=== PATIENT | female | born 1965 | race Two or more races ===

== ENCOUNTER 2022-07-22 01:06 | Emergency (ER) | payer MEDICARE, MEDICAID, SELFPAY ==
[2022-07-22 01:33] VITALS: BP 134/88; PULSE 110; O2SAT 98
[2022-07-22 02:04] VITALS: BP 124/88; PULSE 106; RESP 20; TEMP 36.7; O2SAT 98; BMI 28.3
--- NOTE | 2022-07-22 07:08 | ED_ITS ---
HPI - Back Pain/Injury General Chief Complaint: Back Pain/Injury Stated Complaint: BACK PAIN [id number] Time Seen by Provider: 07/22/22 06:29 Source: patient Mode of arrival: EMS History of Present Illness HPI Narrative: 56-year-old female with atraumatic presentation via EMS of back pain that does not radiate into either lower extremity, she denies any groin numbness and denies any bowel or bladder issues. Patient also denies any fever, chills but states that she is having difficulty bending over to plug in her electronics. Patient denies any urinary symptoms such as pains, burning, frequency. Related Data Allergies Allergy/AdvReac Type Severity Reaction Status Date / Time No Known Allergies Allergy Verified 07/22/22 02:06 Review of Systems Review of Systems: Pertinent positives and negatives as stated in HPI. [facility]LY [facility] Past Medical History Source: nursing notes reviewed Social History Social History Advance Directives: No Advance Directives Information Provided: No Physical Exam Vital Signs: Vital Signs: Last Vital Signs Temp 98.1 F 07/22/22 02:04 Pulse 68 07/22/22 07:21 Resp 16 07/22/22 07:21 BP 139/87 07/22/22 07:21 Pulse Ox 94 07/22/22 07:21 O2 Del Method 07/22/22 07:21 BMI result Body Mass Index 28.3 VITAL SIGNS: Reviewed. GENERAL: Chronically ill, well-nourished, in no acute distress. HEAD: Normocephalic/atraumatic EYES: PERRLA, EOMI EARS: Ext canals without abnormality OROPHARYNX: no oral lesions noted, posterior pharynx clear LUNGS: Normal breath sounds. No adventitious sounds or accessory muscle use. SpO2<94> CARDIOVASCULAR: Regular rate and rhythm without noted murmurs ABDOMEN: Soft, non-tender, non-distended with bowel sounds. BACK: No midline vertebral tenderness or step-offs noted, no erythema or induration and no paraspinal pain on palpation. MUSCULOSKELETAL: No tenderness, deformities, or effusions noted on gross inspection. EXTREMITIES: No cyanosis, clubbing or edema. SKIN: Inspection of the skin reveals no rashes NEUROLOGIC: Alert and oriented x 4. Strength and sensation to light touch were grossly intact x 4. Medications Administered Discontinued Medications Generic Name Dose Route Start Last Admin Trade Name Elizabeth PRN Reason Stop Dose Admin Acetaminophen 975 mg 07/22/22 07:07 07/22/22 07:19 Acetaminophen 325 Mg Tablet PO 07/22/22 07:08 975 mg ONCE ONE Administration Ibuprofen 400 mg 07/22/22 07:07 07/22/22 07:19 Ibuprofen 400 Mg Tablet PO 07/22/22 07:08 400 mg ONCE ONE Administration Lidocaine 1 patch 07/22/22 07:07 07/22/22 07:19 Lidocaine 4 % Patch Adh..Patch TRANSDERMA 07/22/22 07:08 1 patch ONCE ONE Administration Protocol Medical Decision Making Medical Decision Making MDM Narrative: 56-year-old female with history and clinical presentation most consistent with acute on chronic back pain likely secondary to osteoarthritis, patient provided with combination analgesics as well as a lidocaine patch. On re-evaluation patient is noted feel a little bit better and is walking well without difficulty. Differential Diagnosis Differential Diagnoses: The differential diagnosis associated with the presentation includes Acute on chronic back pain likely osteoarthritis, there are no symptoms to suggest cauda equina, spinal abscess or fracture. Discharge Plan Discharge Clinical Impression: Acute exacerbation of chronic low back pain Patient Disposition: Home, Self-Care Instructions: Back Pain (ED) Additional Instructions: 1. Tylenol 1000 mg, orally, every 6 hours as needed for pain control. Do not exceed 4000 mg within 24 hours. 2. Lidocaine patch, this is available [id number] and should be apply to the area of maximal pain on your back as directed on the outside packaging. 3. Ibuprofen 400 mg, orally with milk or food, every 6 hours as needed for pain control. You may take this medication with Tylenol for improved symptom relief. 4. Please follow-up with your primary care provider in the next 1-2 days for re- evaluation further management. Return to the ER for any worsening symptoms.
[2022-07-22] MEDS: Ibuprofen 400 MG TABLET PO (07:19)
[2022-07-22] MEDS: Lidocaine 4 % Patch ADH..PATCH 1 PATCH TRANSDERMA (07:19)
[2022-07-22] MEDS: Acetaminophen 325 MG TABLET 975 MG PO (07:19)
[2022-07-22 07:21] VITALS: BP 139/87; PULSE 68; RESP 16; O2SAT 94
== END 2022-07-22 08:06 | disposition home or self-care (01) ==
PROVIDERS: Emergency Provider Student in an Organized Health Care Education/Training Program
DX: M54.50 Low back pain, unspecified (principal); Z79.899 Other long term (current) drug therapy
CPT/HCPCS: 99283; 99284

== ENCOUNTER 2022-07-30 20:50 | Emergency (ER) | payer MEDICARE, MEDICAID, SELFPAY ==
--- NOTE | 2022-07-30 | ECG_ITS ---
Test Reason : left side chest pressure Blood Pressure : / mmHG Vent. Rate : 097 BPM Atrial Rate : 097 BPM P-R Int : 180 ms QRS Dur : 080 ms QT Int : 346 ms P-R-T Axes : 063 026 031 degrees QTc Int : 439 ms Normal sinus rhythm Nonspecific T wave abnormality Borderline ECG No previous ECGs available Referred By: Generic ED Physician Electronically Signed By:MIK MANTILLA
--- NOTE | ~2022-07-30 | XR_ITS ---
EXAMINATION: XR CHEST CLINICAL INFORMATION: Cough. COMPARISON: None TECHNIQUE: 2 views of the chest were obtained. FINDINGS: No significant abnormality is noted involving the heart, lungs, mediastinum, bony thorax or soft tissues. XR/XR chest 2V IMPRESSION: Unremarkable examination.
[2022-07-30 20:54] VITALS: BP 130/80; PULSE 110; O2SAT 100
[2022-07-30 21:03] VITALS: BP 164/97; PULSE 103; RESP 18; TEMP 36.3; O2SAT 100; BMI 25.4
[2022-07-30 21:42] LABS: MANUAL DIFF FLAG NO
[2022-07-30 21:43] LABS: Basophils Percent Auto 0.6 % (0-2); Eosinophils Percent Auto 0.3 % (0-4); Hematocrit 37.9 % (37.0-47.0); Hemoglobin 12.7 g/dl (12.0-16.0); Imm Gran Abs Auto 0.07 X10*3/uL (0.00-0.03); Lymphocytes Absolute Auto 2.6 X10*3/uL (1.2-4.9); Lymphocytes Percent Auto 37.2 % (20-40); Mean Corpuscular HGB Conc 33.5 g/dl (31.0-35.0); Mean Corpuscular Volume 92.4 fL (80.0-98.0); Mean Platelet Volume 9.8 fL (9.4-12.3); Monocytes Absolute Auto 0.9 X10*3/uL (0.1-1.2); Monocytes Percent Auto 13.3 % (2-11); Neutrophils Absolute Auto 3.4 x10*3/uL (2.0-8.3); Neutrophils Percent Auto 47.6 % (45-73); Platelet Count 246 X10*3/uL (160-400); White Blood Count 7.1 X10*3/uL (4.8-10.8)
[2022-07-30 22:00] VITALS: BP 164/90; PULSE 94; RESP 16; TEMP 36.7; O2SAT 97
[2022-07-30 22:02] LABS: Anion Gap 15 (12-20); Blood Urea Nitrogen 19 mg/dL (9-16); Calcium 9.8 mg/dL (8.4-10.2); Carbon Dioxide 24 mmol/L (22-29); Chloride 105 mmol/L (96-108); Creatinine Clr Calc Pharmacy 78.1; Estimated Glomerular Filt Rate > 60; Glucose Random 113 mg/dL (60-115); Potassium 4.7 mmol/L (3.3-5.1); Sodium 139 mmol/L (135-145); Troponin-I High Sensitivity < 3.5 ng/L (<3.5-17.0)
[2022-07-30 22:03] LABS: IDNOW Serial# BCCEAD1C; Influenza A Negative (Negative); Influenza B2 Negative (Negative)
[2022-07-30 22:04] LABS: COVID-19 Test Negative (Negative); IDNOW Serial# 16C4AD1C
[2022-07-30 22:06] LABS: D Dimer High Sensitivity < 150 NG/ML
[2022-07-30] MEDS: Acetaminophen 325 MG TABLET 975 MG PO (23:00)
[2022-07-30] MEDS: Ibuprofen 400 MG TABLET PO (23:01)
--- NOTE | 2022-07-30 23:38 | ED.GENADULT ---
HPI - General Adult General Chief complaint: General Medical Stated complaint: Sinus Pain/Hip Pain Time Seen by Provider: 07/30/22 22:10 Source: patient Mode of arrival: EMS History of Present Illness HPI narrative: 56-year-old female who presents via EMS with complaints of ?sinus infection for 7 days but denies any associated fever, chills and denies any visual disturbances. In addition, patient reports open quotes left-sided facial heaviness as well as ?breast pain? as per the triage note but patient made no mention of any breast discomfort. Related Data Allergies Allergy/AdvReac Type Severity Reaction Status Date / Time No Known Allergies Allergy Verified 07/30/22 21:07 Review of Systems Review of Systems: Pertinent positives and negatives as stated in HPI [facility] Past Medical History Source: nursing notes reviewed Social History Social History Alcohol intake: never Smoked in Last 30 Days: Yes Use of substances other than those prescribed or required for medical reasons: Yes Substance Use Type: Crack/Cocaine Last Used Substance: Weeks (ago) Advance Directives: No Physical Exam ED Vital Signs: Vital Signs - 24 hr 07/30/22 21:03 07/30/22 22:00 Temperature 97.4 F 98.0 F Pulse Rate 103 H 94 Respiratory Rate 18 16 Blood Pressure 164/97 H 164/90 H Pulse Oximetry 100 97 Oxygen Delivery Method Room Air Room Air BMI result Body Mass Index 25.4 VITAL SIGNS: Reviewed. GENERAL: Well developed, well nourished, in no acute distress. HEAD: Normocephalic/atraumatic, patient does describes some mild tenderness on palpation on tapping over the left maxilla EYES: PERRLA, EOMI EARS: Ext canals without abnormality, TMs non-bulging and non-erythematous NOSE: Nares patent bilateral, boggy turbinates bilaterally but no noted purulence drainage OROPHARYNX: no oral lesions noted, posterior pharynx clear, patient has no teeth NECK: Supple, no adenopathy LUNGS: Normal breath sounds. No adventitious sounds or accessory muscle use. SpO2<100> CARDIOVASCULAR: Regular rate and rhythm without noted murmurs, no JVD or lower extremity edema. ABDOMEN: Soft, non-tender, non-distended with bowel sounds. MUSCULOSKELETAL: No tenderness, deformities, or effusions noted on gross inspection. EXTREMITIES: No cyanosis, clubbing or edema. SKIN: Inspection of the skin reveals no rashes NEUROLOGIC: Alert and oriented x 4. Strength and sensation to light touch were grossly intact x 4, no facial asymmetry. Medications Administered Discontinued Medications Generic Name Dose Route Start Last Admin Trade Name Elizabeth PRN Reason Stop Dose Admin Acetaminophen 975 mg 07/30/22 22:37 07/30/22 23:00 Acetaminophen 325 Mg Tablet PO 07/30/22 22:38 975 mg ONCE ONE Administration Ibuprofen 400 mg 07/30/22 22:37 07/30/22 23:01 Ibuprofen 400 Mg Tablet PO 07/30/22 22:38 400 mg ONCE ONE Administration Medical Decision Making Medical Decision Making [facility] Narrative: This is a 56-year-old female who presents with multiple complaints of sinus pain, on my examination denies any chest wall discomfort and patient denies any recent falls. I have reviewed and interpreted her workup as absence of acute systemic infection, no evidence of anemia or acute electrolyte/renal dysfunction, troponin and EKG do not appear consistent with underlying cardiac etiology with respect to her reported left breast pain as documented from the triage note. Unable to PERC patient out, however D-dimer is undetectable. Viral testing is negative and patient was provided with combination analgesics for sinus discomfort. At this time I do not feel that she has an active bacterial sinus infection and I will not be prescribing antibiotics for this patient at this time. Instead I am asking that the patient follow-up with her primary care provider. Differential Diagnosis Please see discussion above Lab Data [facility] Lab Attestation statement: I reviewed the patient's lab results. Please see discussion above 07/30/22 21:35 07/30/22 21:35 Labs: Lab Results 07/30/22 07/30/22 07/30/22 Range/Units 21:31 21:31 21:35 WBC 7.1 (4.8-10.8) X10*3/uL RBC 4.10 L (4.20-5.50) X10*6/uL Hgb 12.7 (12.0-16.0) g/dl Hct 37.9 (37.0-47.0) % MCV 92.4 (80.0-98.0) fL MCH 31.0 (27.0-33.0) pg MCHC 33.5 (31.0-35.0) g/dl RDW 17.0 H (11.0-16.0) % Plt Count 246 (160-400) X10*3/uL MPV 9.8 (9.4-12.3) fL Immature Gran % (Auto) 1.0 H (0.0-0.4) % Neut % (Auto) 47.6 (45-73) % Lymph % (Auto) 37.2 (20-40) % [place] % (Auto) 13.3 H (2-11) % Eos % (Auto) 0.3 (0-4) % Baso % (Auto) 0.6 (0-2) % Lymph # (Auto) 2.6 (1.2-4.9) X10*3/uL [place] # (Auto) 0.9 (0.1-1.2) X10*3/uL Eos # (Auto) 0.0 (0.0-0.4) X10*3/uL Baso # (Auto) 0.0 (0.0-0.2) X10*3/uL Abs Immat Gran (auto) 0.07 H (0.00-0.03) X10*3/uL Absolute Neuts (auto) 3.4 (2.0-8.3) x10*3/uL Absolute Nucleated RBC 0.000 (0.0-0.012) X10*3/uL Nucleated RBC % (auto) 0.0 (0.0-0.2) /100WBC D-Dimer High Sensitivty NG/ML Sodium (135-145) mmol/L Potassium (3.3-5.1) mmol/L Chloride (96-108) mmol/L Carbon Dioxide (22-29) mmol/L Anion Gap (12-20) BUN (9-16) mg/dL Creatinine (0.5-1.4) mg/dL Estim Creat Clear Calc Estimated GFR Random Glucose (60-115) mg/dL Calcium (8.4-10.2) mg/dL Troponin I High Sens (<3.5-17.0) ng/L COVID-19 (EH) Negative (Negative) COVID-19 Clin Com See Note Influenza Type A (GUILHERME) Negative (Negative) Influenza Type B (GUILHERME) Negative (Negative) Influenza A & B Note See Note 07/30/22 07/30/2207/30/23 Range/Units 21:35 21:35 21:35 WBC (4.8-10.8) X10*3/uL RBC (4.20-5.50) X10*6/uL Hgb (12.0-16.0) g/dl Hct (37.0-47.0) % MCV (80.0-98.0) fL MCH (27.0-33.0) pg MCHC (31.0-35.0) g/dl RDW (11.0-16.0) % Plt Count (160-400) X10*3/uL MPV (9.4-12.3) fL Immature Gran % (Auto) (0.0-0.4) % Neut % (Auto) (45-73) % Lymph % (Auto) (20-40) % Bosque % (Auto) (2-11) % Eos % (Auto) (0-4) % Baso % (Auto) (0-2) % Lymph # (Auto) (1.2-4.9) X10*3/uL [place] # (Auto) (0.1-1.2) X10*3/uL Eos # (Auto) (0.0-0.4) X10*3/uL Baso # (Auto) (0.0-0.2) X10*3/uL Abs Immat Gran (auto) (0.00-0.03) X10*3/uL Absolute Neuts (auto) (2.0-8.3) x10*3/uL Absolute Nucleated RBC (0.0-0.012) X10*3/uL Nucleated RBC % (auto) (0.0-0.2) /100WBC D-Dimer High Sensitivty < 150 NG/ML Sodium 139 (135-145) mmol/L Potassium 4.7 (3.3-5.1) mmol/L Chloride 105 (96-108) mmol/L Carbon Dioxide 24 (22-29) mmol/L Anion Gap 15 (12-20) BUN 19 H (9-16) mg/dL Creatinine 0.71 (0.5-1.4) mg/dL Estim Creat Clear Calc 78.1 Estimated GFR > 60 Random Glucose 113 (60-115) mg/dL Calcium 9.8 (8.4-10.2) mg/dL Troponin I High Sens < 3.5 (<3.5-17.0) ng/L COVID-19 (EH) (Negative) COVID-19 Clin Com Influenza Type A (GUILHERME) (Negative) Influenza Type B (GUILHERME) (Negative) Influenza A & B Note Independent Interpretation I performed an independent interpretation of an: EKG Interpretation: Normal sinus rhythm, HR-97, nonspecific T-wave abnormality, no STEMI, WI/QRS/QTC is within normal limits, this is an abnormal EKG. There is no EKG for comparison Radiology Impression Radiologist Impression: My interpretation is in agreement with radiologist's impression of the imaging study. External Record Review External record reviewed: Outside ED record Discharge Plan Discharge Clinical Impression: Sinusitis Patient Disposition: Home, Self-Care Instructions: Sinusitis (ED) Additional Instructions: 1. I recommend starting [id number] saline spray for for improvement of symptoms as well as using a cool mist humidifier at the bedside. 2. Follow-up with your primary care provider by calling the office on Monday. 3. I also recommend [id number] Tylenol/ibuprofen for any sinus pain that you experience. Return to the ER for any worsening symptoms.
--- NOTE | 2022-07-31 00:05 | PC.NURSE ---
Discharge instructions given and explained, ambulates safely/independently, no apparent distress, IV cath tip intact upon removal
== END 2022-07-31 00:04 | disposition home or self-care (01) ==
PROVIDERS: Emergency Provider Student in an Organized Health Care Education/Training Program
DX: J32.0 Chronic maxillary sinusitis (principal); Z20.822 Contact with and (suspected) exposure to COVID-19
CPT/HCPCS: 36415; 71046; 80048; 84484; 85025; 85379; 87502; 87635; 93005; 99283; 99285

== ENCOUNTER 2022-10-28 09:30 | Emergency (ER) | payer OTHER, MEDICARE, MEDICAID, SELFPAY ==
--- NOTE | ~2022-10-28 | XR_ITS ---
EXAMINATION: XR KNEE, RIGHT CLINICAL INFORMATION: Pain. Injury. COMPARISON: None available. TECHNIQUE: Four views of the right knee. FINDINGS: There is a plate and multiple screws seen in the distal femoral shaft and supracondylar region. Hardware is intact. Old healed fracture of the distal femur. No acute fracture or dislocation. Mild tricompartment arthritis with joint space narrowing and osteophyte formation at the knee joint. Small joint effusion. Small patellar osteophytes at the quadriceps tendon insertion and patellar tendon origins. XR/XR knee RT 4V IMPRESSION: ORIF of old healed distal femoral shaft fracture. Mild arthritis. No acute fracture or dislocation.
[2022-10-28 09:36] VITALS: BP 130/100; BP 175/102; PULSE 86; PULSE 92; RESP 20; TEMP 36.7; O2SAT 94; O2SAT 97; BMI 24.0
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
[2022-10-28 10:43] VITALS: BP 156/84; PULSE 82; RESP 12; O2SAT 100
== END 2022-10-28 12:30 | disposition home or self-care (01) ==
PROVIDERS: Emergency Provider Internal Medicine
DX: S80.01XA Contusion of right knee, initial encounter (principal); M25.561 Pain in right knee; V03.99XA Pedestrian with other conveyance injured in collision with car, pick-up truck or van, unspecified whether traffic or nontraffic accident, initial encounter; Y93.9 Activity, unspecified; Y92.481 Parking lot as the place of occurrence of the external cause; Y99.9 Unspecified external cause status
CPT/HCPCS: 73564; 99283

== ENCOUNTER → 2023-05-17 07:53 | Outpatient (REF) | payer MEDICARE, MEDICAID, SELFPAY ==
--- NOTE | 2023-05-17 08:29 | ECG_ITS ---
Test Reason : F31.31, F43.10 Blood Pressure : / mmHG Vent. Rate : 092 BPM Atrial Rate : 092 BPM P-R Int : 152 ms QRS Dur : 088 ms QT Int : 368 ms P-R-T Axes : 073 041 048 degrees QTc Int : 455 ms Normal sinus rhythm Nonspecific T wave abnormality Abnormal ECG When compared with ECG of 30-JUL-2022 21:24, T wave inversion less evident in Anterior leads Referred By: Annette Gomez Electronically Signed By:ROLA NUNEZ MD
== END ==
LOC: HO.CARD 07:53
PROVIDERS: PCP Family Medicine; Visit Provider Nurse Practitioner Psychiatric/Mental Health
DX: F31.31 Bipolar disorder, current episode depressed, mild (principal); F43.10 Post-traumatic stress disorder, unspecified; Z79.899 Other long term (current) drug therapy
CPT/HCPCS: 93005

== ENCOUNTER → 2024-03-15 15:00 | Outpatient (REF) | payer MEDICARE, MEDICAID, SELFPAY ==
--- NOTE | 2024-03-15 | ECG_ITS ---
Test Reason : F31.81 Blood Pressure : / mmHG Vent. Rate : 093 BPM Atrial Rate : 093 BPM P-R Int : 154 ms QRS Dur : 086 ms QT Int : 352 ms P-R-T Axes : 076 050 061 degrees QTc Int : 437 ms Sinus rhythm with occasional Premature ventricular complexes Nonspecific T wave abnormality Abnormal ECG When compared with ECG of 17-MAY-2023 08:28, Premature ventricular complexes are now Present Nonspecific T wave abnormality now evident in Lateral leads Referred By: Annette Gomez Electronically Signed By:JENNIFER MCCRACKEN
== END ==
LOC: HO.CARD 15:00
PROVIDERS: PCP Family Medicine; Visit Provider Nurse Practitioner Psychiatric/Mental Health
DX: F31.81 Bipolar II disorder (principal); F43.10 Post-traumatic stress disorder, unspecified
CPT/HCPCS: 93005

== ENCOUNTER 2024-06-19 09:47 | Emergency (ER) | payer MEDICARE, MEDICAID, SELFPAY ==
[2024-06-19 10:15] VITALS: BP 160/106; BP 173/110; PULSE 87; PULSE 92; RESP 16; TEMP 36.6; O2SAT 98; BMI 23.8
[2024-06-19 10:22] VITALS: BP 173/110; PULSE 87; RESP 16; TEMP 36.6; O2SAT 98
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
[2024-06-19 12:43] VITALS: BP 141/100; PULSE 93; RESP 16; O2SAT 99
[2024-06-19] MEDS: Cyclobenzaprine HCl 10 MG TABLET PO (12:49)
[2024-06-19] MEDS: Lidocaine 4 % Patch ADH..PATCH 1 PATCH TRANSDERMA (12:49)
[2024-06-19 13:03] VITALS: BP 141/100; PULSE 93; RESP 16; TEMP 36.6; O2SAT 99
== END 2024-06-19 13:04 | disposition home or self-care (01) ==
PROVIDERS: Emergency Provider Emergency Medicine Emergency Medical Services; PCP Family Medicine
DX: S39.012A Strain of muscle, fascia and tendon of lower back, initial encounter (principal); V73.6XXA Passenger on bus injured in collision with car, pick-up truck or van in traffic accident, initial encounter; Y93.89 Activity, other specified; Y92.414 Local residential or business street as the place of occurrence of the external cause; Y99.9 Unspecified external cause status
CPT/HCPCS: 99284

== ENCOUNTER 2024-07-24 00:56 | Emergency (ER) | payer MEDICARE, MEDICAID, SELFPAY ==
--- NOTE | 2024-07-24 | ECG_ITS ---
Test Reason : SOB Blood Pressure : / mmHG Vent. Rate : 097 BPM Atrial Rate : 097 BPM P-R Int : 150 ms QRS Dur : 084 ms QT Int : 354 ms P-R-T Axes : 069 051 063 degrees QTc Int : 449 ms Normal sinus rhythm Nonspecific T wave abnormality Abnormal ECG When compared with ECG of 15-MAR-2024 15:08, Premature ventricular complexes are no longer Present Referred By: Generic ED Physician Electronically Signed By:KELLY MELGAR MD
--- NOTE | ~2024-07-24 | XR_ITS ---
CLINICAL HISTORY: Cough 1 view chest x-ray Comparison: CR/ND/SR - XR CHEST 2V - 07/31/22 00:02 EST Findings: Low lung volumes. No focal infiltrate. No effusion or pneumothorax. Heart size is normal. No acute fracture. IMPRESSION: 1. No acute findings. This document has been electronically signed by: Piero Garcia MD on 07/24/2024 02:03:54
[2024-07-24 01:02] VITALS: BP 126/82; BP 128/82; PULSE 105; PULSE 96; RESP 20; TEMP 36.4; O2SAT 96; O2SAT 99; BMI 30.7
[2024-07-24 01:18] LABS: Basophils Percent Auto 0.4 % (0-2); Eosinophils Absolute Auto 0.1 X10*3/uL (0.0-0.4); Eosinophils Percent Auto 1.2 % (0-4); Hemoglobin 11.8 g/dl (12.0-16.0); Imm Gran Abs Auto 0.45 X10*3/uL (0.00-0.03); Imm Gran Pct Auto 4.5 % (0.0-0.4); Lymphocytes Percent Auto 39.9 % (20-40); MANUAL DIFF FLAG NO; Mean Corpuscular HGB Conc 32.8 g/dl (31.0-35.0); Mean Corpuscular Hemoglobin 30.1 pg (27.0-33.0); Mean Corpuscular Volume 91.8 fL (80.0-98.0); Mean Platelet Volume 9.5 fL (9.4-12.3); Monocytes Absolute Auto 1.1 X10*3/uL (0.1-1.2); Monocytes Percent Auto 11.2 % (2-11); Neutrophils Absolute Auto 4.2 x10*3/uL (2.0-8.3); Neutrophils Percent Auto 42.8 % (45-73); Platelet Count 273 X10*3/uL (160-400); Red Blood Count 3.92 X10*6/uL (4.20-5.50); Red Cell Distribution Width 17.2 % (11.0-16.0); White Blood Count 9.9 X10*3/uL (4.8-10.8)
--- NOTE | 2024-07-24 01:28 | ED_ITS ---
HPI - SOB/Dyspnea General Chief Complaint: Dyspnea Stated Complaint: SOB x1 week, Hx of COPD, wheezing Time Seen by Provider: 07/24/24 01:28 Source: patient Mode of arrival: ambulatory Limitations: no limitations History of Present Illness ED Provider: HPI Narrative: Patient chronic smoker with history of COPD nebulizer is broken and using inhaler comes here for 1 week of cough and congestion saturating 94% at room received DuoNeb treatment by EMS prior to my evaluation patient took a course of prednisone and antibiotics about a week ago Related Data Previous Rx's ?Medication ?Instructions ?Recorded acetaminophen 500 mg tablet 500 mg PO Q6H PRN fever or pain 06/19/24 (Tylenol Extra Strength) #14 tabs cyclobenzaprine 5 mg tablet 5 mg PO Q8H PRN pain (scale score 06/19/24 7-10) 5 days #14 tabs lidocaine 5 % topical patch 1 patch topical DAILY PRN pain #30 06/19/24 (Lidoderm) ea naproxen 500 mg tablet 500 mg PO BID PRN pain 10 days #20 06/19/24 tabs albuterol sulfate 2.5 mg/3 mL 2.5 mg (3 mL) inhalation Q4-6H PRN 07/24/24 (0.083 %) solution for nebulization shortness of breath or wheezing #90 mL albuterol sulfate 90 mcg/actuation 2 puff inhalation Q6H PRN 07/24/24 aerosol inhaler shortness of breath or wheezing #8.5 grams nebulizer and compressor #1 ea 07/24/24 prednisone 20 mg tablet 40 mg (2 x 20 mg) PO DAILY #10 tabs 07/24/24 Allergies Allergy/AdvReac Type Severity Reaction Status Date / Time No Known Allergies Allergy Verified 07/24/24 01:03 Review of Systems 2 Review of Systems: Yes all other systems are reviewed and are negative [facility] Social History Social History Alcohol intake: never Substance Use Type: Crack/Cocaine Advance Directives: No Do you have a plan to hurt others: No Plan Physical Exam 2 Vital Signs: Vital Signs: Last Vital Signs Temp 97.5 F 07/24/24 01:02 Pulse 105 H 07/24/24 01:02 Resp 20 07/24/24 01:02 BP 128/82 07/24/24 01:02 Pulse Ox 96 07/24/24 01:02 O2 Del Method Room Air 07/24/24 01:02 BMI result Body Mass Index 30.7 Appearance: Alert. Oriented X3. No acute distress. Eyes: PERRLA, No Nystagmus ENT: Pharynx normal. Oral Mucosa moist Neck: Normal inspection. Neck supple. CVS: Normal heart rate and rhythm. Pulses normal. Respiratory: No respiratory distress. Equal air entry bilateral, prolonged expiration no rales Abdomen: Soft and nontender. Bowel sounds are present, no mass palpable, no CVA tenderness Skin: Skin warm and dry. Normal skin color. Normal skin turgor. Extremities: No lower extremity edema. No calf tenderness Neuro: Oriented X 3. No motor deficit. No sensory deficit.No cerebellar signs , cranial nerves II-XII intact Medical Decision Making Medical Decision Making [facility] Narrative: Patient with chronic bronchitis smoker comes with cough and shortness a breath but saturating 94% chest x-ray negative for infiltrate will prescribe prednisone labs were stable patient came positive for COVID no infiltrate in the chest x- ray Differential Diagnosis Differential Diagnoses: The differential diagnosis associated with the presentation includes Bronchitis/COPD/pneumonia Lab Data [facility] Lab Attestation statement: I reviewed the patient's lab results. 07/24/24 01:13 07/24/24 01:13 Labs: Lab Results 07/24/24 Range/Units 01:13 WBC 9.9 (4.8-10.8) X10*3/uL RBC 3.92 L (4.20-5.50) X10*6/uL Hgb 11.8 L (12.0-16.0) g/dl Hct 36.0 L (37.0-47.0) % MCV 91.8 (80.0-98.0) fL MCH 30.1 (27.0-33.0) pg MCHC 32.8 (31.0-35.0) g/dl RDW 17.2 H (11.0-16.0) % Plt Count 273 (160-400) X10*3/uL MPV 9.5 (9.4-12.3) fL Immature Gran % (Auto) 4.5 H (0.0-0.4) % Neut % (Auto) 42.8 L (45-73) % Lymph % (Auto) 39.9 (20-40) % [place] % (Auto) 11.2 H (2-11) % Eos % (Auto) 1.2 (0-4) % Baso % (Auto) 0.4 (0-2) % Lymph # (Auto) 4.0 (1.2-4.9) X10*3/uL [place] # (Auto) 1.1 (0.1-1.2) X10*3/uL Eos # (Auto) 0.1 (0.0-0.4) X10*3/uL Baso # (Auto) 0.0 (0.0-0.2) X10*3/uL Abs Immat Gran (auto) 0.45 H (0.00-0.03) X10*3/uL Absolute Neuts (auto) 4.2 (2.0-8.3) x10*3/uL Absolute Nucleated RBC 0.000 (0.0-0.012) X10*3/uL Nucleated RBC % (auto) 0.0 (0.0-0.2) /100WBC Sodium 137 (135-145) mmol/L Potassium 5.7 H (3.3-5.1) mmol/L Chloride 104 (96-108) mmol/L Carbon Dioxide 21 L (22-29) mmol/L Anion Gap 18 (12-20) BUN 15 (9-16) mg/dL Creatinine 0.72 (0.5-1.4) mg/dL Estim Creat Clear Calc 85.5 Estimated GFR > 60 Random Glucose 110 (60-115) mg/dL Calcium 9.5 (8.4-10.2) mg/dL Total Bilirubin 0.2 (0.0-1.0) mg/dL AST 41 H (5-31) U/L ALT 18 (0-31) U/L Alkaline Phosphatase 97 (39-117) U/L Troponin I High Sens < 2.7 (<3.5-17.0) ng/L B-Natriuretic Peptide 14 (<100) pg/mL Total Protein 7.4 (6.5-8.0) g/dL Albumin 3.5 (3.5-5.0) g/dL Influenza Type A (PCR) NEGATIVE (Negative) Influenza Type B (PCR) NEGATIVE (Negative) RSV RNA Qual (PCR) NEGATIVE (Negative) SARS-CoV-2 RNA (RT-PCR) POSITIVE A (Negative) Independent Interpretation I performed an independent interpretation of an: Plain X-Ray Interpretation: NAD Radiology Impression Discussion of test interpretation with radiology: I have reviewed the radiologist's reading. Discharge Plan Discharge Clinical Impression: Chronic bronchitis, COVID-19 Patient Disposition: Home, Self-Care Instructions: Chronic Bronchitis (ED), COVID-19 (Coronavirus Disease 2019) (ED) Additional Instructions: Stop smoking Continue to use your inhaler Prednisone as prescribed Follow with your PCP Social distancing as advised Prescriptions: New prednisone 20 mg tablet 40 mg PO DAILY Qty: 10 0RF albuterol sulfate 90 mcg/actuation HFA aerosol inhaler 2 puff inhalation Q6H PRN (Reason: shortness of breath or wheezing) Qty: 8.5 0RF (DME) nebulizer and compressor Device See Rx Instructions .Route Qty: 1 0RF Rx Instructions: As directed albuterol sulfate 2.5 mg /3 mL (0.083 %) solution for nebulization 2.5 mg inhalation Q4-6H PRN (Reason: shortness of breath or wheezing) Qty: 90 0RF No Action acetaminophen [Tylenol Extra Strength] 500 mg tablet 500 mg PO Q6H PRN (Reason: fever or pain) Qty: 14 0RF lidocaine [Lidoderm] 5 % adhesive patch,medicated 1 patch topical DAILY MDD remove after 12 hours PRN (Reason: pain) Qty: 30 0RF Rx Instructions: leave on most painful area for up to 12 hrs naproxen 500 mg tablet 500 mg PO BID PRN (Reason: pain) 10 Days Qty: 20 0RF cyclobenzaprine 5 mg tablet 5 mg PO Q8H PRN (Reason: pain (scale score 7-10)) 5 Days Qty: 14 0RF Print Language: Citizen [place]
[2024-07-24 01:34] LABS: Alanine Aminotransferase 18 U/L (0-31); Albumin Level 3.5 g/dL (3.5-5.0); Alkaline Phosphatase 97 U/L (39-117); Anion Gap 18 (12-20); Aspartate Amino Transferase 41 U/L (5-31); Bilirubin Total 0.2 mg/dL (0.0-1.0); Blood Urea Nitrogen 15 mg/dL (9-16); Calcium 9.5 mg/dL (8.4-10.2); Carbon Dioxide 21 mmol/L (22-29); Chloride 104 mmol/L (96-108); Creatinine Clr Calc Pharmacy 85.5; Estimated Glomerular Filt Rate > 60; Glucose Random 110 mg/dL (60-115); Potassium 5.7 mmol/L (3.3-5.1); Sodium 137 mmol/L (135-145); Total Protein 7.4 g/dL (6.5-8.0)
[2024-07-24 01:38] LABS: B Type Natriuretic Peptide 14 pg/mL (<100)
[2024-07-24 01:45] LABS: Troponin-I High Sensitivity < 2.7 ng/L (<3.5-17.0)
[2024-07-24 01:54] LABS: Influenza A PCR NEGATIVE (Negative); Influenza B PCR NEGATIVE (Negative); Resp Syncy Virus RNA Qual PCR NEGATIVE (Negative); SARS COV2 PCR INHOUSE POSITIVE (Negative)
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
--- OUTSIDE RECORDS SUMMARY | 2024-07-24 01:59 | XMS_ITS | Encounter Summary ---
Author Name [facility] [facility] [place] [address] [place] [address] Care Team Providers Care District Customs Director Name Role Phone NORMA GOMES Primary Care [...] AKIKO WOODWARD Jul 24, 2016 MEDICAI D [id number] SABINE WADE PATIENT MEDICARE (WNR) MEDICARE (M) PART B Jan 22, 1996 PART B [id number] SABINE WADE PATIENT MEDICARE (WNR) MEDICARE (M) PART B Jan 22, 1996 PART B [id number] SABINE WADE PATIENT MEDICARE (WNR) MEDICARE (M) PART A Mar 24, 1995 PART A [id number] SABINE WADE PATIENT Selected Encounter This section includes the information on record at [place] for the Encounter. Date/Time Encounter Type Encounter Description Reason Pro vider Source Dec 26, 2023 10:30 AM Outpatient Encounter OPTOMETRY IHE Encounter Template Text not used by CT Plan of Treatment: Future Appointments (+ 6 months) and Future Tests (+/- 45 days) The Plan of Treatment section includes future care activities for the [facility] [place] [facility] This section includes future appointments and future orders which are active, pending or scheduled. Future Appointments This section includes appointments that were scheduled to occur 6 months from the date of the Encounter, up to a maximum of 20 appointments. The data comes from all [place] treatment facilities. Appointment Date/Time Appointment Type Appointme nt Facility Name Jan 12, 2024 03:00 PM AMBULATORY - MEDICINE [facility] Jan 15, 2024 11:00 AM AMBULATORY - MEDICINE [facility] Jan 17, 2024 10:40 AM [facility] MEDICINE [facility] Apr 23, 2024 02:00 PM AMBULATORY - MEDICINE [facility] Lab Results: +/- 30 days of the encounter This section includes the Chemistry and Hematology Lab Results on record with CT for the patient. Radiology Reports and Pathology Reports are provided separately, in subsequent sections. Lab Results This section contains the Chemistry/Hematology Results that were resulted 30 days before or 30 daysafter the date of the Encounter. Date/Time Source Result Type Result - Unit Interpretation Reference Range Comment Jan 12, 2024 02:40 PM [facility] URINALYSIS Specimen Type: URINE Comment: If Glucose = >500 and Ketones are positive, please alert the Physician. Ordering Provider: MIKY ARITA Report Released Date/Time: Apr 27, 2023 03:37 PM Reporting Lab: [address] [address] Performing Lab: [address] [address] UA COLOR Yellow Yellow UA APPEARANCE Clear Clear UA GLUCOSE NEGATIVE mg/dL Negative UA KETONES TRACE mg/dL Negative UA BLOOD NEGATIVE mg/dL Negative UA PROTEIN 70 mg/dL Negative UA NITRITE NEGATIVE mg/dL Negative UA BILIRUBIN NEGATIVE mg/dL Negative UA SPECIFIC GRAVITY 1.036 H 1.016-1.022 UA pH 6.0 5.0-9.0 UA UROBILINOGEN 2.0 mg/dL <2.0 UA LEUKOCYTE TRACE Negative Jan 12, 2024 12:32 PM [facility] BASIC METABOLIC PANEL (fasting) Specime n Type: SERUM No comment entered. Ordering Provider: MIKY ARITA Report Released Date/Time: Apr 27, 2023 03:37 PM Reporting Lab: [address] [address] Performing Lab: [address] [address] UREA NITROGEN 14 mg/dL 7-25 GLUCOSE 92 mg/dL 65-100 SODIUM 140 mmol/L 135-145 POTASSIUM 4.7 mmol/L 3.5-5.0 CHLORIDE 105 mmol/L 100-110 CO2 23 meq/L 20-30 CREATININE, Serum 0.71 mg/dL 0.50-1.40 eGFR(CKD-EPI 2020) >90 mL/min >60 Jan 12, 2024 12:32 PM [facility] LIPID PANEL FASTING Specimen Type: SERUM No comment entered. Ordering Provider: MIKY ARITA Report Released Date/Time: Apr 27, 2023 03:37 PM Reporting Lab: [address] [address] Performing Lab: [address] [address] CHOLESTEROL 269 mg/dL H TRIGLYCERIDE 412 mg/dL H 0-150 LDL calculated Reflex to dLD L mg/dL 0-129 CHOL/HDL 5.2 HDL CHOLESTEROL 52 mg/dL 40-60 LDL DIRECT 167 mg/dL H Jan 12, 2024 12:32 PM [facility] LIVER FUNCTION Specimen Type: SERUM No comment entered. Ordering Provider: MIKY ARITA Report Released Date/Time: Apr 27, 2023 03:37 PM Reporting Lab: [address] [address] Performing Lab: [address] [address] PROTEIN,TOTAL 7.2 g/dL 6.0-8.3 ALBUMIN 3.8 g/dL 3.5-5.0 ALKALINE PHOSPHATASE 99 U/L 40-150 AST 17 U/L 5-34 ALT 15 U/L BILIRUBIN, TOTAL 0.2 mg/dL 0.2-1.2 Jan 12, 2024 12:32 PM [facility] HEMOGLOBIN A1C PANEL Specimen Type: BLOOD Comment: [...] Apr 27, 2023 03:37 PM Reporting Lab: [address] [address] Performing Lab: [address] [address] HEMOGLOBIN A1C 5.8 H 4.0-5.6 Jan 12, 2024 12:32 PM [facility] CBC AND DIFF (AUTO) Specimen Type: BLOOD No comment entered. Ordering Provider: MIKY ARITA Report Released Date/Time: Apr 27, 2023 03:37 PM Reporting Lab: [facility] [address] [address] Performing Lab: [address] [address] WBC 7.22 10*3/uL 4.50-11.00 RBC 4.24 10*6/uL [...] 10*3/uL 0.00-0.00 Jan 12, 2024 12:32 PM [facility] TSH Specimen Type: SERUM No comment entered. Ordering Provider: MIKY ARITA Report Released Date/Time: Apr 27, 2023 03:37 PM Reporting Lab: [facility] [address] [address] Performing Lab: [facility] [address] [address] TSH 1.46 u[IU]/mL 0.35-5.00 Social History: Smoking Status (Most current) and Tobacco Use (All prior to encounter date) This section includes the most current, and the historical, smoking and tobacco- related health factors from the [place] facility where the Encounter took place. Current Smoking Status This section includes the most current smoking, or tobacco-related health factor, from the [place] facility where the Encounter took place. Date/Time Current Smoking Status Comment Luis ity May 30, 2022 02:02 PM VA-TOBACCO USER EVERY [facility] Tobacco Use History This section includes a history of the smoking, or tobacco-related health factors, that were collected on or before the date of the Encounter. The data comes from the [place] facility where the Encounter took place. Date/Time Smoking Status/Tobacco Use Comment F acility May 30, 2022 02:02 PM VA-TOBACCO USE ADVICE [place] [facility] [place] [facility] May 30, 2022 02:02 PM VA-TOBACCO USE REPAIRER HAIRSPRING NO CT [facility]L [facility] [place] [facility] May 30, 2022 02:02 PM VA-TOBACCO USE MED NO CT [facility] [place] [place] [facility] May 30, 2022 02:02 PM VA-TOBACCO USE [place] 30 MIN OF WAKEUP [facility] [place] [facility] May 30, 2022 02:02 PM VA-TOBACCO USER EVERY DAY [facility] [place] [facility] Jun 04, 2021 11:04 AM VA-TOBACCO USE 30 YEARS OR MORE [place] [facility] [place] [facility] Jun 04, 2021 11:04 AM VA-TOBACCO USE ADVICE [place] [facility] [place] [facility] Jun 04, 2021 11:04 AM VA-TOBACCO USE REPAIRER HAIRSPRING NO [place] [facility] [place] [facility] Jun 04, 2021 11:04 AM VA-TOBACCO USE MED NO [place] [facility] [place] [facility] Jun 04, 2021 11:04 AM VA-TOBACCO USE [place] [address] [facility] [place] [place] [facility] Jun 04, 2021 11:04 AM VA-TOBACCO USER EVERY DAY CT [facility] [place] [facility] Encounter Notes: All associated encounter notes This section contains the clinical notes associated to the Encounter. Date/Time Encounter Note(s) Provider Source Dec 26, 2023 10:30 AM OPTOMETRY NOTE: LOCAL TITLE: OPTOMETRY NOTE STANDARD TITLE: OPTOMETRY NOTE DATE OF NOTE: DEC 26, 2023@10:30 ENTRY DATE: DEC 26, 2023@10:30:43 AUTHOR: ROSE SERRANO EXP COSIGNER: URGENCY: STATUS: COMPLETED OPTOMETRY NOTE Has ADDENDA [place] did not stay to select new eyeglasses per Specialty [facility]. Please call to rtc to select new eyewear. /mary SERRANO PAGE DESIGNER Signed: 12/26/2023 10:31 Receipt Acknowledged By: 12/26/2023 10:48 /sony/ AP THOMPSON OD Subsystems Engineer 12/26/2023 ADDENDUM STATUS: COMPLETED Per [facility], will dup prev pair. No need for fittings appointment. /mary SERRANO PAGE DESIGNER Signed: 12/26/2023 11:[address] [facility]
--- OUTSIDE RECORDS SUMMARY | 2024-07-24 01:59 | XMS_ITS ---
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 Date/Time Encounter Type Encounter Description Reason Pro vider Source November 28, 2023 07:53 AM Outpatient Encounter ADMIN PAT ACTIVTIES (MASNONCT) IHE Encounter Template Text not used by [place] Plan of Treatment: Future Appointments (+ 6 months) and Future Tests (+/- 45 days) The Plan of Treatment section includes future care activities for the patient [facility] [place] [facility] This section includes future appointments and future orders which are active, pending or scheduled. Future Appointments This section includes appointments that were scheduled to occur 6 months from the date of the Encounter, up to a maximum of 20 appointments. The data comes from all [place] treatment facilities. Appointment Date/Time Appointment Type Appointme nt Facility Name Dec 26, 2023 09:00 AM [facility] [place] [facility] [place] [facility] Jan 12, 2024 03:00 PM AMBULATORY - MEDICINE [facility] Jan 15, 2024 11:00 AM [place] [facility] Jan 17, 2024 10:40 AM [place] [facility] [facility] Apr 23, 2024 02:00 PM AMBULATORY - MEDICINE [facility] Social History: Smoking Status (Most current) and Tobacco Use (All prior to encounter date) This section includes the most current, and the historical, smoking and tobacco- related health factors from the [place] facility where the Encounter took place. Current Smoking Status This section includes the most current smoking, or tobacco-related health factor, from the [place] facility where the Encounter took place. Date/Time Current Smoking Status Comment Facil ity May 30, 2022 02:02 PM VA-TOBACCO USER EVERY DAY [place] [facility] Tobacco Use History This section includes a history of the smoking, or tobacco-related health factors, that were collected on or before the date of the Encounter. The data comes from the [place] facility where the Encounter took place. Date/Time Smoking Status/Tobacco Use Comment F acility May 30, 2022 02:02 PM VA-TOBACCO USE ADVICE [place] [facility] [place] [facility] May 30, 2022 02:02 PM VA-TOBACCO USE SECURITY TESTER NO [facility] [place] [facility] May 30, 2022 02:02 PM VA-TOBACCO USE MED NO [place] [facility] [place] [place] [facility] May 30, 2022 02:02 PM VA-TOBACCO USE [place] 30 MIN OF WAKEUP [place] [facility] [place] [facility] May 30, 2022 02:02 PM VA-TOBACCO USER EVERY DAY [place] [facility] [place] [facility] Jun 04, 2021 11:04 AM VA-TOBACCO USE 30 YEARS OR MORE [place] [facility] [place] [facility] Jun 04, 2021 11:04 AM VA-TOBACCO USE ADVICE [place] [facility] [place] [place] [facility] Jun 04, 2021 11:04 AM VA-TOBACCO USE SECURITY TESTER NO [place] [facility] [place] [facility] Jun 04, 2021 11:04 AM VA-TOBACCO USE MED NO [place] [facility] [place] [facility] Jun 04, 2021 11:04 AM VA-TOBACCO USE [place] 30 MIN OF WAKEUP [facility] [place] [facility] Jun 04, 2021 11:04 AM VA-TOBACCO USER EVERY DAY [place] [facility] [place] [facility] Encounter Notes: All associated encounter notes This section contains the clinical notes associated to the Encounter. Date/Time Encounter Note(s) Provider Source November 28, 2023 07:53 AM ADMINISTRATIVE NOT E: LOCAL TITLE: CCC: SCHEDULING ADMINISTRATION STANDARD TITLE: ADMINISTRATIVE NOTE DATE OF NOTE: NOVEMBER 28, 2023@07:53 ENTRY DATE: NOVEMBER 28, 2023@07:53:25 AUTHOR: GAVIOTA AMOR EXP COSIGNER: URGENCY: STATUS: COMPLETED CCC: SCHEDULING ADMINISTRATION Has ADDENDA Verify Patient Demographics Successfully verified patient demographics pt missed call from [place], no note to verify who call, please attempt again, she wants to make sure her primary care appt is still good for today, let her know it has not been cancelled, please return call if it is being cancelled. /sony/ GAVIOTA AMOR VISN2 CCC LEAD AMSA Signed: 11/28/2023 07:54 Receipt Acknowledged By: 11/28/2023 09:00 /sony/ MARCO A HANKINS ADVANCED TESTING SPECIALIST 11/28/2023 ADDENDUM STATUS: COMPLETED THIS EXAMINER OF CURRENCY HAD CALLED TO LET HER KNOW CWM/SO/PACT EIGHT PROVIDER IS OUT OF CLINIC TODAY. HAD RESCHEDULED F2F F/U APPT. WITH CWM/SO/PACT EIGHT PROVIDER ON 01/12/2024 AT 15:00. /sony/ MARCO A HANKINS ADVANCED TESTING SPECIALIST Signed: 11/28/2023 09:02 GAVIOTA AMORL RHETT GARCIA
--- OUTSIDE RECORDS SUMMARY | 2024-07-24 01:59 | XMS_ITS | Continuity of Care Document ---
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 depending upon the facility. Vital Sign Value Date Comments Source SYSTOLIC BLOOD PRESSURE 133 01/12/2024 15:03:57 [place] DIASTOLIC BLOOD PRESSURE 90 01/12/2024 15:03:57 [facility] PULSE OXIMETRY 92 01/12/2024 15:03:57 [place] PULSE 97 01/12/2024 15:03:57 JO[facility] BLACK Encounters Combined list of: 1) Encounters from Department of Veterans Affairs facilities going back up to thelast 18 months. 2) Encounters from the Department of Defense facilities going back up to 280 months. Location Location Details Encounter Type Encounter Number Reason For Visit Attending Provider ADM Date DC Date Status Disposition Source [facility] En[facility] [id number] 04/24 [facility] En[facility] [id number] 04/27 [facility] OFFICE O/P EST LOW 20-29 MIN [id number] Diagnos is: ICD-10- CM F43.29 Adjustm ent disorde r with other symptom s
SADIQ ARITA 04/27 [place] [facility] En[facility] [id number] SADIQ ARITA 04/27 [facility] En[facility] [id number] 05/02 [facility] Encounter [id number] 06/21 [facility] Encounter [id number] 06/21 [facility] Encounter [id number] 07/05 [facility] En[facility] [id number] 07/05 [facility] Encounter [id number] 08/03 [facility] En[facility] [id number] 08/09 [facility] [place] PSYTX W PT 30 MINUTES [id number] Diagnos is: ICD-10- CM F31.9 Bipolar disorde r, unspeci fied
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
MERHAR,NOHEMY H B 12/25 [facility] En[facility] [id number] 12/25 [facility] Out[facility] Encounter [id number] 12/25 [facility] FIT SPECTACLES MONOFOCAL [id number] Diagnos is: ICD-10- CM Z46.0 Encount er for fit/adj st of spectac les and contact lenses< br/> MERHAR,NOHEMY H B 12/26 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<br/ > SALTY SHRESTHA 12/27 [facility] Out[facility] En[facility] [id number] 01/08 [facility] [place] OFF[place] O/P EST MOD 30 MIN [id number] Diagnos is: ICD-10- CM I10 Essenti al (primar y) hyperte nsion<b r/> STELEA,CAR MEN F 01/11 [place] [facility] Out[facility] Encounter [id number] 1.01/14 [facility] En[facility] [id number] [facility] FIT SPECTACLES MONOFOCAL [id number] Diagnos is: ICD-10- CM Z46.0 Encount er for fit/adj st of spectac les and contact lenses< br/> DERRICK NGUYEN 01/16 [facility] En[facility] [id number] 03/28 [facility] En[facility] [id number] 03/28 [facility] RN SERVICES UP TO 15 MINUTES [id number] Diagnos is: ICD-10- CM L60.0 Ingrowi ng nail
PEDRITO PRETTY 03/28 [facility] Outpatient Encounter [id number] Diagnos is: ICD-10- CM L60.0 Ingrowi ng nail
Hu CORTES M 03/28 [facility] Outpatient Encounter [id number] 04/03 [facility] OFFICE O/P NEW LOW 30 MIN [id number] Diagnos is: ICD-10- CM L60.3 Nail dystrop hy
SETH FENTON F 04/23 [facility] Outpatient Encounter [id number] 05/15 [facility] Outpatient Encounter [id number] 06/04 [facility] Social History Combined list of available smoking, tobacco, and other social history from Department of Defense and Veterans Affairs facilities. Social History Type Response Date Comment Sourc e Tobacco smoking status NHIS VA-TOBACCO USER EVERY DAY 09/04/2023 [place] History of tobacco use HI-TOBACCO USE WI 30 MIN OF WAKEUP 09/04/2023 [facility] History of tobacco use VA-TOBACCO USER EVERY DAY 05/30/2022 [facility] [place] [facility] History of tobacco use VA-TOBACCO USER EVERY DAY 06/04/2021 [facility] [place] [facility] History of tobacco use V1-PT NOT INTERESTED IN QUIT TOBACCO USE 04/05/2017 [facility] History of tobacco use CURRENT SMOKER 12/31/2013 [facility] Plan of Care List of future care activities from Department of Veterans Affairs facilities. Additional future care activities may be listed in the Assessment and Plan section. Date/Time Care Activity Care Activity Detail Facili ty 09/03/2024 AMBULATORY - MEDICINE AMBULATORY - MEDICI [place] [facility]
--- OUTSIDE RECORDS SUMMARY | 2024-07-24 01:59 | XMS_ITS ---
Author Name [facility] [place] [facility] [place] [address] [place] [address] Care Team Providers Care Corset Maker Name Role Phone NORMA GOMES Primary Care [...] AKIKO WOODWARD Jul 24, 2016 MEDICAI D [id number] [place] [place] PATIENT MEDICARE (WNR) MEDICARE (M) PART B Jan 22, 1996 PART B [id number] [phone] [place] [place] PATIENT MEDICARE (WNR) MEDICARE (M) PART B Jan 22, 1996 PART B [id number] [place] PATIENT MEDICARE (WNR) MEDICARE (M) PART A Mar 24, 1995 PART A [id number] [facility] PATIENT Selected Encounter This section includes the information on record at [place] for the Encounter. Date/Time Encounter Type Encounter Description Reason Pro vider Source Dec 26, 2023 11:25 AM Outpatient Encounter TELEPHONE MH IHE Encounter Template Text not used by [place] Plan of Treatment: Future Appointments (+ 6 months) and Future Tests (+/- 45 days) The Plan of Treatment section includes future care activities for the patient [facility] [place] [facility] This section includes future appointments and future orders which are active, pending or scheduled. Future Appointments This section includes appointments that were scheduled to occur 6 months from the date of the Encounter, up to a maximum of 20 appointments. The data comes from all [place] treatment facilities. Appointment Date/Time Appointment Type Appointme nt Facility Name Jan 12, 2024 03:00 PM AMBULATORY - MEDICINE [facility] Jan 15, 2024 11:00 AM AMBULATORY - MEDICINE [facility] Jan 17, 2024 10:40 AM [facility] MEDIC[facility] Apr 23, 2024 02:00 PM AMBULATORY - MEDICINE [facility] Lab Results: +/- 30 days of the encounter This section includes the Chemistry and Hematology Lab Results on record with [place] for the patient. Radiology Reports and Pathology Reports are provided separately, in subsequent sections. Lab Results This section contains the Chemistry/Hematology Results that were resulted 30 days before or 30 daysafter the date of the Encounter. Date/Time Source Result Type Result - Unit Interpretation Reference Range Comment Jan 12, 2024 02:40 PM [place] [facility] Specimen Type: URINE Comment: If Glucose = >500 and Ketones are positive, please alert the Physician. Ordering Provider: MIKY ARITA Report Released Date/Time: Apr 27, 2023 03:37 PM Reporting Lab: [address] [address] Performing Lab: [address] [address] UA COLOR Yellow Yellow UA APPEARANCE Clear Clear UA GLUCOSE NEGATIVE mg/dL Negative UA KETONES TRACE mg/dL Negative UA BLOOD NEGATIVE mg/dL Negative UA PROTEIN 70 mg/dL Negative UA NITRITE NEGATIVE mg/dL Negative UA BILIRUBIN NEGATIVE mg/dL Negative UA SPECIFIC GRAVITY 1.036 H 1.016-1.022 UA pH 6.0 5.0-9.0 UA UROBILINOGEN 2.0 mg/dL <2.0 UA LEUKOCYTE TRACE Negative Jan 12, 2024 12:32 PM [place] BASIC METABOLIC PANEL (fasting) Specime n Type: SERUM No comment entered. Ordering Provider: MIKY ARITA Report Released Date/Time: Apr 27, 2023 03:37 PM Reporting Lab: [address] [address] Performing Lab: [address] [address] [place]A NITROGEN 14 mg/dL 7-25 GLUCOSE 92 mg/dL 65-100 SODIUM 140 mmol/L 135-145 POTASSIUM 4.7 mmol/L 3.5-5.0 CHLORIDE 105 mmol/L 100-110 CO2 23 meq/L 20-30 CREATININE, Serum 0.71 mg/dL 0.50-1.40 eGFR(CKD-EPI 2020) >90 mL/min >60 Jan 12, 2024 12:32 PM [place] LIPID PANEL FASTING Specimen Type: SERUM No comment entered. Ordering Provider: MIKY ARITA Report Released Date/Time: Apr 27, 2023 03:37 PM Reporting Lab: [address] [address] Performing Lab: [address] [address] CHOLESTEROL 269 mg/dL H TRIGLYCERIDE 412 mg/dL H 0-150 LDL calculated Reflex to dLD L mg/dL 0-129 CHOL/HDL 5.2 HDL CHOLESTEROL 52 mg/dL 40-60 LDL DIRECT 167 mg/dL H Jan 12, 2024 12:32 PM [place] LIVER FUNCTION Specimen Type: SERUM No comment entered. Ordering Provider: MIKY ARITA Report Released Date/Time: Apr 27, 2023 03:37 PM Reporting Lab: [address] [address] Performing Lab: [address] [address] PROTEIN,TOTAL 7.2 g/dL 6.0-8.3 ALBUMIN 3.8 g/dL 3.5-5.0 ALKALINE PHOSPHATASE 99 U/L 40-150 AST 17 U/L 5-34 ALT 15 U/L BILIRUBIN, TOTAL 0.2 mg/dL 0.2-1.2 Jan 12, 2024 12:32 PM [place] HEMOGLOBIN A1C PANEL Specimen Type: BLOOD Comment: [...] Apr 27, 2023 03:37 PM Reporting Lab: [address] [address] Performing Lab: [address] [address] HEMOGLOBIN A1C 5.8 H 4.0-5.6 Jan 12, 2024 12:32 PM [place] CBC AND DIFF (AUTO) Specimen Type: BLOOD No comment entered. Ordering Provider: MIKY ARITA Report Released Date/Time: Apr 27, 2023 03:37 PM Reporting Lab: [facility] [address] [address] Performing Lab: [address] [address] WBC 7.22 10*3/uL 4.50-11.00 RBC 4.24 10*6/uL [...] 10*3/uL 0.00-0.00 Jan 12, 2024 12:32 PM [place] TSH Specimen Type: SERUM No comment entered. Ordering Provider: MIKY ARITA Report Released Date/Time: Apr 27, 2023 03:37 PM Reporting Lab: [facility] [address] [address] Performing Lab: [place] [facility] [address] [address] TSH 1.46 u[IU]/mL 0.35-5.00 Social History: Smoking Status (Most current) and Tobacco Use (All prior to encounter date) This section includes the most current, and the historical, smoking and tobacco- related health factors from the [place] facility where the Encounter took place. Current Smoking Status This section includes the most current smoking, or tobacco-related health factor, from the [place] facility where the Encounter took place. Date/Time Current Smoking Status Comment Luis ity May 30, 2022 02:02 PM VA-TOBACCO USER EVERY DAY [facility] Tobacco Use History This section includes a history of the smoking, or tobacco-related health factors, that were collected on or before the date of the Encounter. The data comes from the [place] facility where the Encounter took place. Date/Time Smoking Status/Tobacco Use Comment F acility May 30, 2022 02:02 PM VA-TOBACCO USE ADVICE [place] [facility] [place] [facility] May 30, 2022 02:02 PM VA-TOBACCO USE BUILDING PRESSURE WASHER NO [place] [facility] [place] [facility] May 30, 2022 02:02 PM VA-TOBACCO USE MED NO [place] [facility] [place] [facility] May 30, 2022 02:02 PM VA-TOBACCO USE [place] 30 MIN OF WAKEUP [facility] [place] [facility] May 30, 2022 02:02 PM VA-TOBACCO USER EVERY DAY [facility] [place] [facility] Jun 04, 2021 11:04 AM VA-TOBACCO USE 30 YEARS OR MORE [facility] [place] [facility] Jun 04, 2021 11:04 AM VA-TOBACCO USE ADVICE [facility] [place] [facility] Jun 04, 2021 11:04 AM VA-TOBACCO USE BUILDING PRESSURE WASHER NO [facility] [place] [facility] Jun 04, 2021 11:04 AM VA-TOBACCO USE MED NO [facility] [place] [facility] Jun 04, 2021 11:04 AM VA-TOBACCO USE [place] 30 MIN OF WAKEUP [facility] [place] [facility] Jun 04, 2021 11:04 AM VA-TOBACCO USER EVERY DAY [place] [facility] [place] [facility] Encounter Notes: All associated encounter notes This section contains the clinical notes associated to the Encounter. Date/Time Encounter Note(s) Provider Source Dec 26, 2023 11:25 AM SUICIDE PREVENTION NOTE: LOCAL TITLE: SUICIDE RISK MANAGEMENT FOLLOW-UP STANDARD TITLE: SUICIDE PREVENTION NOTE DATE OF NOTE: DEC 26, 2023@11:25 ENTRY DATE: DEC 26, 2023@11:25:19 AUTHOR: CANDY SHRESTHA EXP COSIGNER: URGENCY: STATUS: COMPLETED SUICIDE RISK MANAGEMENT FOLLOW-UP Has ADDENDA Suicide Risk Management Follow-Up PURPOSE: Contacted [facility] for follow-up related to: 's Crisis Line contact OUTREACH OUTCOME Attempt to contact made at the following times: 11:25pm Left voice mail message with phone number and request to call back. The [facility] Crisis Line submitted a referral via the Crisis Application for the on 12/25/2023 2:22 PM (EDT). This note is being entered to assist with continuity of care while the Suicide Paper Bag Making Machinist responds to this referral. The referral call synopsis reads: NAME: Aleksandra Loya PRIORITY DESIGNATION: Routine SPC INFORMATION: [facility]([place], [facility], [place], [place], [place]) [phone] OPTOUT: SSN: [id number] /AGE: 59 ADDRESS: [place] PHONE NUMBER: [phone] NO SDV TERM SPC CONSULT due to needing to schedule eye appointment and to set-up transportation PRESENTING PROBLEM: [facility] expressed having issues with speaking with a live person at the [facility] to schedule an eye appointment as well as to set-up transportation. [facility] expressed to be focused on ensuring they are proactive with their overall care needs. Responder offered SPC consult and agreed as well as providing a CT to the [facility]. ELECTRONIC HEALTH RECORD: No Flags RISK ASSESSMENT: [facility] denied SI today, but reported SI in the past, and [facility] reported past suicide attempt in the past by throwing self out of a hotel window causing to be in a coma for 3 months. [facility] denied no access to firearms/weapons. SAFETY PLAN: [facility] will 1. Attend their program, 2. Focus on continued recovery, 3. Take psychiatric medications as prescribed, and in lieu of calling the VCL back will seek admittance if needed. UPDATE:12/26/23: Call placed to the with no answer. HIPPA compliant message left requesting a return call. Please note that is appears that the [facility] was able to get in touch with optometry this morning, as related to this call. A VETERANS CRISIS LINE NOTE will be entered upon completion of the consult. /sony/ CANDY SHRESTHA SHIPPING AND RECEIVING ASSISTANT Suicide Paper Bag Making Machinist Signed: 12/26/2023 11:27 12/27/2023 ADDENDUM STATUS: COMPLETED Second outreach call placed to [facility] with no answer. HIPAA compliant voicemail left requesting a return call. /es/ DIOGO HAYES SHIPPING AND RECEIVING ASSISTANT SUICIDE LOAN WORKOUT OFFICER Signed: 12/27/2023 14:20 CANDY SHRESTHA [place] [facility]
--- OUTSIDE RECORDS SUMMARY | 2024-07-24 01:59 | XMS_ITS ---
Author Name [facility] [place] [place] Organization [facility] [place] Address [address] [place] [id number] Care Team Providers Care Lamp Cleaner Street Light Name Role Phone NORMA GOMES Primary Care [...] AKIKO WOODWARD Jul 24, 2016 MEDICAI D [id number] SABINE WADE PATIENT MEDICARE (WNR) MEDICARE (M) PART B Jan 22, 1996 PART B [id number] SABINE WADE PATIENT MEDICARE (WNR) MEDICARE (M) PART B Jan 22, 1996 PART B [id number] SABINE WADE PATIENT MEDICARE (WNR) MEDICARE (M) PART A Mar 24, 1995 PART A [id number] SABINE WADE PATIENT Selected Encounter This section includes the information on record at [place] for the Encounter. Date/Time Encounter Type Encounter Description Reason Provider Source Dec 27, 2023 09:17 AM FIT SPECTACLES MONOFOCAL OPTOMETRY ICD-10-CM Z46.0 Encounter for fit/adjst of spectacles and contact lenses AP THOMPSON Jb Encounter Template Text not used by CT Assessments - Encounter Diagnoses This section includes the primary and secondary diagnoses documented for the Encounter. Date/Time Primary/Secondary Diagnosis Diagnosis Name Provider Source Dec 27, 2023 09:17 AM PRIMARY Encounter for fit/adjst of spectacles and contact lenses COURT VIE[facility] Plan of Treatment: Future Appointments (+ 6 months) and Future Tests (+/- 45 days) The Plan of Treatment section includes future care activities for the patient [facility] [place] [facility] This section includes future appointments [...] 15, 2024 11:00 AM AMBULATORY - MEDICINE [facility] Jan 17, 2024 10:40 AM AMBULATORY MEDICINE [facility] Apr 23, 2024 02:00 PM AMBULATORY - MEDICINE [facility] Lab Results: +/- 30 days of [...] Range Comment Jan 12, 2024 02:40 PM [facility] URINALYSIS Specimen Type: URINE Comment: If Glucose = >500 and Ketones are positive, please alert the Physician. Ordering Provider: MIKY ARTIA Report Released Date/Time: Apr 27, 2023 03:37 PM Reporting Lab: [facility] [address] [facility] [address] Performing Lab: [address] [address] UA COLOR Yellow Yellow UA APPEARANCE Clear Clear UA GLUCOSE NEGATIVE mg/dL Negative UA KETONES TRACE mg/dL Negative UA BLOOD NEGATIVE mg/dL Negative UA PROTEIN 70 mg/dL Negative UA NITRITE NEGATIVE mg/dL Negative UA BILIRUBIN NEGATIVE mg/dL Negative UA SPECIFIC GRAVITY 1.036 H 1.016-1.022 UA pH 6.0 5.0-9.0 UA UROBILINOGEN 2.0 mg/dL <2.0 UA LEUKOCYTE TRACE Negative Jan 12, 2024 12:32 PM [facility] BASIC METABOLIC PANEL (fasting) Specime n Type: SERUM No comment entered. Ordering Provider: MIKY ARITA Report Released Date/Time: Apr 27, 2023 03:37 PM Reporting Lab: [address] [address] Performing Lab: [address] [address] UREA NITROGEN 14 mg/dL 7-25 GLUCOSE 92 mg/dL 65-100 SODIUM 140 mmol/L 135-145 POTASSIUM 4.7 mmol/L 3.5-5.0 CHLORIDE 105 mmol/L 100-110 CO2 23 meq/L 20-30 CREATININE, Serum 0.71 mg/dL 0.50-1.40 eGFR(CKD-EPI 2020) >90 mL/min >60 Jan 12, 2024 12:32 PM [facility] LIPID PANEL FASTING Specimen Type: SERUM No comment entered. Ordering Provider: MIKY ARITA Report Released Date/Time: Apr 27, 2023 03:37 PM Reporting Lab: [address] [address] Performing Lab: [address] [address] CHOLESTEROL 269 mg/dL H TRIGLYCERIDE 412 mg/dL H 0-150 LDL calculated Reflex to dLD L mg/dL 0-129 CHOL/HDL 5.2 HDL CHOLESTEROL 52 mg/dL 40-60 LDL DIRECT 167 mg/dL H Jan 12, 2024 12:32 PM [facility] LIVER FUNCTION Specimen Type: SERUM No comment entered. Ordering Provider: MIKY ARITA Report Released Date/Time: Apr 27, 2023 03:37 PM Reporting Lab: [address] [address] Performing Lab: [address] [address] PROTEIN,TOTAL 7.2 g/dL 6.0-8.3 ALBUMIN 3.8 g/dL 3.5-5.0 ALKALINE PHOSPHATASE 99 U/L 40-150 AST 17 U/L 5-34 ALT 15 U/L BILIRUBIN, TOTAL 0.2 mg/dL 0.2-1.2 Jan 12, 2024 12:32 PM [facility] HEMOGLOBIN A1C PANEL Specimen Type: BLOOD Comment: [...] Apr 27, 2023 03:37 PM Reporting Lab: [address] [address] Performing Lab: [address] [address] HEMOGLOBIN A1C 5.8 H 4.0-5.6 Jan 12, 2024 12:32 PM [facility] CBC AND DIFF (AUTO) Specimen Type: BLOOD No comment entered. Ordering Provider: MIKY ARITA Report Released Date/Time: Apr 27, 2023 03:37 PM Reporting Lab: [address] [address] Performing Lab: [address] [address] WBC 7.22 10*3/uL 4.50-11.00 RBC 4.24 10*6/uL [...] 10*3/uL 0.00-0.00 Jan 12, 2024 12:32 PM [facility] TSH Specimen Type: SERUM No comment entered. Ordering Provider: MIKY ARITA Report Released Date/Time: Apr 27, 2023 03:37 PM Reporting Lab: [address] [address] Performing Lab: [address] [address] TSH 1.46 u[IU]/mL 0.35-5.00 Social History: Smoking [...] 2022 02:02 PM VA-TOBACCO USER EVERY DAY [facility] Tobacco Use History This section includes a history of the smoking, or tobacco-related health factors, that were collected on or before the date of the Encounter. The data comes from the [place] facility where the Encounter took place. Date/Time Smoking Status/Tobacco Use Comment F acility May 30, 2022 02:02 PM VA-TOBACCO USE ADVICE [facility] [place] [facility] May 30, 2022 02:02 PM VA-TOBACCO USE BELL CLERK NO [facility] [place] [facility] May 30, 2022 02:02 PM VA-TOBACCO USE MED NO [facility] [place] [facility] May 30, 2022 02:02 PM VA-TOBACCO USE WI 30 MIN OF WAKEUP [facility] [place] [facility] May 30, 2022 02:02 PM VA-TOBACCO USER EVERY DAY [facility] [place] [facility] Jun 04, 2021 11:04 AM VA-TOBACCO USE 30 YEARS OR MORE [facility] [place] [facility] Jun 04, 2021 11:04 AM VA-TOBACCO USE ADVICE [facility] [place] [facility] Jun 04, 2021 11:04 AM VA-TOBACCO USE BELL CLERK NO [facility] [place] [facility] Jun 04, 2021 11:04 AM VA-TOBACCO USE MED NO [facility] [place] [facility] Jun 04, 2021 11:04 AM VA-TOBACCO USE WI 30 MIN OF WAKEUP [facility] [place] [facility] Jun 04, 2021 11:04 AM VA-TOBACCO USER EVERY DAY [facility] [place] [facility] Encounter Notes: All associated encounter notes This section contains the clinical notes associated to the Encounter. Date/Time Encounter Note(s) Provider Source Dec 27, 2023 09:17 AM OPTOMETRY NOTE: LOCAL TITLE: OPTOMETRY NOTE STANDARD TITLE: OPTOMETRY NOTE DATE OF NOTE: DEC 27, 2023@09:17 ENTRY DATE: DEC 27, 2023@09:17:35 AUTHOR: ROSE SERRANO EXP COSIGNER: URGENCY: STATUS: COMPLETED OPTOMETRY NOTE Has ADDENDA The quote provided below is for informational purposes only. Please verify prior to the creation of a purchase order. ALEKSANDRA WADE 2678 RX INFORMATION OD -1.50 -0.50 X115 Add:0.00 Pzm:0.00 Dir: Prz2:0.00 Dir2: OS -2.00 -0.50 X85 Add:0.00 Pzm:0.00 Dir: Prz2:0.00 Dir2: FITTING INFORMATION FPD: NPD: [place]:R:32.5 L:31.0 SEG HT:R: L: Tint:BENSON Shade:3 VA Billable Items FRAME: NICK SCHWAB Right Lens: POLY SINGLE VISION 1.586 POLY Left Lens: POLY SINGLE VISION 1.586 POLY SOLID TINT The quote provided below is for informational purposes only. Please verify prior to the creation of a purchase order. ALEKSANDRA WADE 2678 RX INFORMATION OD -1.50 -0.50 X115 Add:0.00 Pzm:0.00 Dir: Prz2:0.00 Dir2: OS -2.00 -0.50 X85 Add:0.00 Pzm:0.00 Dir: Prz2:0.00 Dir2: FITTING INFORMATION FPD: NPD: [place]:R:32.5 L:31.0 SEG HT:R: L: Tint:None Shade:None VA Billable Items FRAME: NICK MAN Right Lens: POLY SINGLE VISION 1.586 POLY Left Lens: POLY SINGLE VISION 1.586 POLY KLEAR ANTI-REFLECTIVE COATING /sony/ ROSE SERRANO DIALYSIS REGISTERED NURSE Signed: 12/27/2023 09:18 Receipt Acknowledged By: 12/28/2023 11:17 /sony/ JOSEPH DE LEON OPTOMETRY TECH 12/28/2023 ADDENDUM STATUS: COMPLETED PDS proposal writer fit 2 SV eyeglasses on 12/26/2023. OPT HT entered consult(s) as requested for provider signature. /sony/ Court Vierya LPN Licensed Practical Nurse Signed: 12/28/2023 11:17 ROSE [facility]ERR[facility]O [facility]
--- OUTSIDE RECORDS SUMMARY | 2024-07-24 01:59 | XMS_ITS | Encounter Summary ---
Author Name [facility] [place] [facility] [place] [facility] [place] Address [address] [place] [id number] Care Team Providers Care Composition Professor Name Role Phone NORMA GOMES Primary Care [...] AKIKO WOODWARD Jul 24, 2016 MEDICAI D [id number] SABINE LOYA PATIENT MEDICARE (WNR) MEDICARE (M) PART B Jan 22, 1996 PART B [id number] SABINE LOYA PATIENT MEDICARE (WNR) MEDICARE (M) PART B Jan 22, 1996 PART B [id number] SABINE LOYA PATIENT MEDICARE (WNR) MEDICARE (M) PART A Mar 24, 1995 PART A [id number] SABINE LOYA PATIENT Selected Encounter This section includes the [place] on [place] at [place] for the Encounter. Date/Time Encounter Type Encounter Description Reason Provider Source Dec 28, 2023 03:55 PM HC PRO PHONE CALL 11-20 MIN TELEPHONE MH ICD-10-CM Z71.89 Other specified counseling CANDY SHRESTHA E Encounter Template Text not used by [place] Assessments - Encounter Diagnoses This section includes the primary and secondary diagnoses documented for the Encounter. Date/Time Primary/Secondary Diagnosis Diagnosis Name Provider Source Dec 28, 2023 03:55 PM PRIMARY Other specified counseling CANDY SHRESTHA [facility] Plan of Treatment: Future Appointments (+ 6 months) and Future Tests (+/- 45 days) The Plan of Treatment section includes future care activities for the [place] [facility] [place] [facility] This section includes future appointments and future orders which are active, pending or scheduled. Future Appointments This section includes appointments that were scheduled to occur 6 months from the date of the Encounter, up to a maximum of 20 appointments. The data comes from all [place] treatment facilities. Appointment Date/Time Appointment Type Appointme nt Facility Name Jan 12, 2024 03:00 PM AMBULATORY - MEDICINE [facility] Jan 15, 2024 11:00 AM AMBULATORY - MEDICINE [facility] Jan 17, 2024 10:40 AM AMBULATORY MEDICINE [facility] Apr 23, 2024 02:00 PM AMBULATORY - MEDICINE [facility] Lab Results: +/- 30 days of the encounter This section includes the Chemistry and Hematology Lab Results on record with [place] for the patient. Radiology Reports and Pathology Reports are provided separately, in subsequent sections. Lab Results This section contains the Chemistry/Hematology Results that were resulted 30 days before or 30 daysafter the date of the Encounter. Date/Time Source Result Type Result - Unit Interpretation Reference Range Comment Jan 12, 2024 02:40 PM [facility] URINALYS[facility] Specimen Type: URINE Comment: If Glucose = >500 and Ketones are positive, please alert the Physician. Ordering Provider: MIKY ARITA Report Released Date/Time: Apr 27, 2023 03:37 PM Reporting Lab: [address] [address] Performing Lab: [address] [address] UA COLOR Yellow Yellow UA APPEARANCE Clear Clear UA GLUCOSE NEGATIVE mg/dL Negative UA KETONES TRACE mg/dL Negative UA BLOOD NEGATIVE mg/dL Negative UA PROTEIN 70 mg/dL Negative UA NITRITE NEGATIVE mg/dL Negative UA BILIRUBIN NEGATIVE mg/dL Negative UA SPECIFIC GRAVITY 1.036 H 1.016-1.022 UA pH 6.0 5.0-9.0 UA UROBILINOGEN 2.0 mg/dL <2.0 UA LEUKOCYTE TRACE Negative Jan 12, 2024 12:32 PM [place] BASIC METABOLIC PANEL (fasting) Specime n Type: SERUM No comment entered. Ordering Provider: MIKY ARITA Report Released Date/Time: Apr 27, 2023 03:37 PM Reporting Lab: [address] [address] Performing Lab: [address] [address] UREA NITROGEN 14 mg/dL 7-25 GLUCOSE 92 mg/dL 65-100 SODIUM 140 mmol/L 135-145 POTASSIUM 4.7 mmol/L 3.5-5.0 CHLORIDE 105 mmol/L 100-110 CO2 23 meq/L 20-30 CREATININE, Serum 0.71 mg/dL 0.50-1.40 eGFR(CKD-EPI 2020) >90 mL/min >60 Jan 12, 2024 12:32 PM [place] LIPID PANEL FASTING Specimen Type: SERUM No comment entered. Ordering Provider: MIKY ARITA Report Released Date/Time: Apr 27, 2023 03:37 PM Reporting Lab: [address] [address] Performing Lab: [address] [address] CHOLESTEROL 269 mg/dL H TRIGLYCERIDE 412 mg/dL H 0-150 LDL calculated Reflex to dLD L mg/dL 0-129 CHOL/HDL 5.2 HDL CHOLESTEROL 52 mg/dL 40-60 LDL DIRECT 167 mg/dL H Jan 12, 2024 12:32 PM [place] LIVER FUNCTION Specimen Type: SERUM No comment entered. Ordering Provider: MIKY ARITA Report Released Date/Time: Apr 27, 2023 03:37 PM Reporting Lab: [address] [address] Performing Lab: [address] [place] [address] PROTEIN,TOTAL 7.2 g/dL 6.0-8.3 ALBUMIN 3.8 g/dL 3.5-5.0 ALKALINE PHOSPHATASE 99 U/L 40-150 AST 17 U/L 5-34 ALT 15 U/L BILIRUBIN, TOTAL 0.2 mg/dL 0.2-1.2 Jan 12, 2024 12:32 PM [place] HEMOGLOBIN A1C PANEL Specimen Type: BLOOD Comment: [...] Apr 27, 2023 03:37 PM Reporting Lab: [address] [address] Performing Lab: [address] [address] HEMOGLOBIN A1C 5.8 H 4.0-5.6 Jan 12, 2024 12:32 PM [place] CBC AND DIFF (AUTO) Specimen Type: BLOOD No comment entered. Ordering Provider: MIKY ARITA Report Released Date/Time: Apr 27, 2023 03:37 PM Reporting Lab: [address] [address] Performing Lab: [address] [address] WBC 7.22 10*3/uL 4.50-11.00 RBC 4.24 10*6/uL [...] 10*3/uL 0.00-0.00 Jan 12, 2024 12:32 PM [place] TSH Specimen Type: SERUM No comment entered. Ordering Provider: MIKY ARITA Report Released Date/Time: Apr 27, 2023 03:37 PM Reporting Lab: [facility] [address] [facility] [address] Performing Lab: [facility] [address] [facility] [address] TSH 1.46 u[IU]/mL 0.35-5.00 Social History: Smoking Status (Most current) and Tobacco Use (All prior to encounter date) This section includes the most current, and the historical, smoking and tobacco- related health factors from the [place] facility where the Encounter took place. Current Smoking Status This section includes the most current smoking, or tobacco-related health factor, from the [place] facility where the Encounter took place. Date/Time Current Smoking Status Comment Facil ity May 30, 2022 02:02 PM VA-TOBACCO USER EVERY DAY [facility] Tobacco Use History This section includes a history of the smoking, or tobacco-related health factors, that were collected on or before the date of the Encounter. The data comes from the [place] facility where the Encounter took place. Date/Time Smoking Status/Tobacco Use Comment F acility May 30, 2022 02:02 PM VA-TOBACCO USE ADVICE [facility] [place] [facility] May 30, 2022 02:02 PM VA-TOBACCO USE ARTIST CONSULTANT NO [facility] [place] [facility] May 30, 2022 02:02 PM VA-TOBACCO USE MED NO [facility] [place] [facility] May 30, 2022 02:02 PM VA-TOBACCO USE WI 30 MIN OF WAKEUP [facility] [place] [facility] May 30, 2022 02:02 PM VA-TOBACCO USER EVERY DAY [facility] [place] [facility] Jun 04, 2021 11:04 AM VA-TOBACCO USE 30 YEARS OR MORE [facility] [place] [facility] Jun 04, 2021 11:04 AM VA-TOBACCO USE ADVICE [facility] [place] [facility] Jun 04, 2021 11:04 AM VA-TOBACCO USE ARTIST CONSULTANT NO [facility] [place] [facility] Jun 04, 2021 11:04 AM VA-TOBACCO USE MED NO [facility] [place] [facility] Jun 04, 2021 11:04 AM VA-TOBACCO USE WI 30 MIN OF WAKEUP [facility] [place] [facility] Jun 04, 2021 11:04 AM VA-TOBACCO USER EVERY DAY [facility] [place] [facility] Encounter Notes: All associated encounter notes This section contains the clinical notes associated to the Encounter. Date/Time Encounter Note(s) Provider Source Dec 28, 2023 03:55 PM SUICIDE PREVENTION NOTE: LOCAL TITLE: [facility] NOTE STANDARD TITLE: SUICIDE PREVENTION NOTE DATE OF NOTE: DEC 28, 2023@15:55:54 ENTRY DATE: DEC 28, 2023@15:55:54 AUTHOR: CANDY SHRESTHA COSIGNER: URGENCY: STATUS: COMPLETED Part I: Hotline Call Report generated by the [place] National Suicide Prevention Hotline, [place], [place]. Hotline responder: Xin Trujillo Hotline Call Start Date/Time: 12/25/2023 2:22 PM ([facility]-05:00) Eastern Time ([place] & [place]) Hotline Call End Date/Time: 12/25/2023 3:08 PM ([facility]-05:00) Eastern Time ([place]) Reasons For Calling: Mental health/illness Other Service Era: Service Branch: : None Clinical Impression and Level of Suicide Risk: Low Suicide Ideation or Behavior Present: Plan or Intent for Suicide: No Answer Past Suicide Attempts: Yes Access to Means To Hurt: No Access to Firearms: Outcome of Call/Action Taken: Caller stayed on line until the call ended normally Call Synopsis: NAME: Aleksandra Loya PRIORITY DESIGNATION: Routine SPC INFORMATION: [facility]([place], [facility], [place], [place], [place]) [phone] OPTOUT: SSN: [id number] /AGE: 59 ADDRESS: [facility] [place] PHONE NUMBER: [phone] NO SDV TERM SPC CONSULT due to needing to schedule eye appointment and to set-up transportation PRESENTING PROBLEM: expressed having issues with speaking with a live person at the [facility] to schedule an eye appointment as well as to set-up transportation. [facility] expressed to be focused on ensuring they are proactive with their overall care needs. Responder offered SPC consult and agreed as well as providing a CT to the [facility]. ELECTRONIC HEALTH RECORD: No Flags RISK ASSESSMENT: [facility] denied SI today, but reported SI in the past, and [facility] reported past suicide attempt in the past by throwing self out of a hotel window causing to be in a coma for 3 months. [facility] denied no access to firearms/weapons. SAFETY PLAN: will 1. Attend their program, 2. Focus on continued recovery, 3. Take psychiatric medications as prescribed, and in lieu of calling the [facility] back will seek admittance if needed. - Part III: Local Suicide Blade Bender Furnace Tender Follow-up: Brief Outcome of follow up: denied any current needs, [facility] provided support Follow up narrative: CONTACT (erase all that do not apply and include ALL that DO apply; AT LEAST 1 must remain) (1) Initial phone attempt made within 24 business hours (mandatory) (2) [facility] reached. ACTION TAKEN/PLAN (erase all that do not apply and include ALL that DO apply; AT LEAST 1 must remain) (6) Suicide Blade Bender Furnace Tender or Suicide Prevention Director Apparel connected with . Risk assessed and needs addressed as indicated. (8) Reviewed with and/or caller how to access emergency mental health resources [facility]ONSE (erase all that do not apply and include ALL that DO apply; AT LEAST 1 must remain) (12) [facility] is aware and in agreement with plan COMMENTS on any additional information up to this point (optional): 12/26/23: Call placed to the with no answer. HIPPA compliant message left requesting a return call. Please note that is appears that the [facility] was able to get in touch with optometry this morning, as related to this call. 12/27/23: Second outreach call placed to [facility] with no answer. HIPAA compliant voicemail left requesting a return call. 12/28/23: Call placed to the who answered the phone. She stated that she is feeling much better and she is going to see her therapist tomorrow and also that she was able to get in touch with optometry. No current or recent SI and the is safe. She is aware of how to get in touch with the [facility] or emergency services if needed. Call ended normally. Any further follow-up will be documented in CPRS. PLEASE CLOSE CONSULT. /sony/ SHAWNEE KAUR Suicide Blade Bender Furnace Tender Signed: 12/28/2023 15:56 [facility] SHRESTHA [facility]
--- OUTSIDE RECORDS SUMMARY | 2024-07-24 01:59 | XMS_ITS | Continuity of Care Document ---
Author Organization [facility] Address [address] [place] [id number]- Care Team Providers Care I&C Technician Name Role Phone Moisés FORD, Kassy Lui Primary Care Physician Encounter [facility] Date(s): 06/05/24 - 07/05/24 [facility]/[address] [address]- Referring Physician: Camelia Yepez Encounter Type: Triage Allergies, Adverse Reactions, Alerts No Known Allergies Immunizations Given and Recorded Vaccine Date Status Refusal Reason influenza virus vaccine, inactivated 05/23/24 Give n influenza virus vaccine, inactivated 09/07/23 Give n influenza virus vaccine, inactivated 07/22/22 Give n influenza virus vaccine, inactivated 09/03/21 Give n influenza virus vaccine, inactivated 04/17/13 Joo rded influenza virus vaccine, inactivated 04/20/12 Give n influenza virus vaccine, inactivated 09/18/11 Joo rded SARS-CoV-2(COVID-19)mRNA-LNP vac([id number]) 09/07/23 Given pneumococcal 20-valent conjugate vaccine 07/22/22 Given SARS-CoV-2 mRNA ([id number]) vax 09/03/21 Given SARS-CoV-2 (COVID-19) mRNA BNT-162b2 vac 01/06/21 Recorded SARS-CoV-2 (COVID-19) mRNA BNT-162b2 vac 12/13/20 Recorded pneumococcal 23-valent vaccine 04/20/12 Given Medications acetaminophen 500 mg oral tablet 2 tablet = 1,000 mg, By Mouth, 3 times a day, PRN for pain, # 60 tablet, 1 Refills, Maintenance, 06/26/24 8:54:00 AM EST, Tablet, [place], [place] - [phone], Partial fill upon patient request if the prescription is for a schedule II opioid drug., 160, cm, 05/23/24 9:46:00 EDT, Height, 76.31, kg, 04/09/24 8:27:00 EDT, Dry Weight Start Date: 06/26/24 Status: Ordered Quantity: 60.0 Unit: tablet Repeat number: 2 albuterol 0.083% inhalation solution 3 mL = 2.5 mg, Inhalation, Every 6 hours, PRN for wheezing/shortness of breath, covering for PCP, #60 each, 0 Refills, Maintenance, 03/04/24 4:54:00 PM EDT, Solution, [place], [place] - [phone], Partial fill upon patient request if the prescription is for a schedule II opioid drug., 160, cm, 01/04/24 10:06:00 EDT, Height, 81.81, kg, 01/04/24 10:06:00 EDT, Dry Weight Start Date: 03/04/24 Status: Ordered Quantity: 60.0 Unit: each Repeat number: 1 albuterol-ipratropium 3 mg-0.5 mg/3 ml inhalation solution See Instructions, INHALE THE CONTENT OF 1 VIAL (3mls) VIA NEBULIZER machine 4 (FOUR) TIMES DAILY ASNEEDED FOR SHORTNESS OF BREATH OR FOR WHEEZING, # 90 mL, 5 Refills, Maintenance, 06/21/22 10:51:00 AM YANIQUE, [facility], 15, INHALE THE CONTENT OF 1 VIAL (3mls) VIA NEBULIZER machine 4 (FOUR) TIMES DAILY NEEDED FOR SHORTNESS OF BREATH OR FOR WHEEZING, 160, cm, 02/06/22 3:46:00 EDT,Height, 67.5, kg, 02/06/22 3:46:00 EDT, Dry Weight Start Date: 06/21/22 Status: Ordered Quantity: 90.0 Unit: mL Repeat number: 6 Benefiber oral powder for reconstitution See Instructions, 4 Gm dissolved in 4 to 8 oz of beverage- hot or cold taking by mouth daily. May inrease up to 3 times a day as needed., # 245 Gm, 2 Refills, Maintenance, 04/04/24 1:56:00 PM EDT, [facility]Powder, [facility] [phone], Partial fill upon patient request if the prescription is for a schedule II opioid drug., 4 Gm dissolved in 4 to 8 oz of beverage- hot or cold taking by mouth daily. May inrease up to 3 times a day as needed., 160, cm, 04/04/24 13:39:00 EDT, Height, 81.81, kg, 04/02/24 15:08:00 EDT, Dry Weight Start Date: 04/04/24 Status: Ordered Quantity: 245.0 Unit: g Repeat number: 3 Indication: Slow transit constipation cetirizine 10 mg oral tablet See Instructions, TAKE 1 TABLET BY MOUTH ONCE DAILY, # 30 tablet, 5 Refills, Maintenance, 05/24/23 4:26:00 PM EDT, [facility], 160, cm, 04/06/23 11:50:00 EDT, Height, 61.36, kg, 11/09/22 8:12:00 EDT, Dry Weight Start Date: 05/24/23 Status: Ordered Quantity: 30.0 Unit: tablet Repeat number: 1 chlorthalidone 25 mg oral tablet 1, tablet, By Mouth, Daily in AM, # 90 tablet, Refills 3, Tot. Refills 3, Maintenance, 09/07/23 12:16:00 PM EST, Route to Pharmacy Electronically, [facility] [id number], 160, cm, 09/07/23 11:09:00 EST, Height, 78.63, kg, 09/07/23 11:09:00 EST, Dry Weight Start Date: 09/07/23 Status: Ordered Quantity: 90.0 Unit: tablet Repeat number: 4 Colace sodium 100 mg oral capsule 100 mg, 1, capsule, By Mouth, 2 times a day, PRN, # 100 capsule, Refills 4, Tot. Refills 4, Maintenance, for constipation, 04/04/24 1:58:00 PM EDT, Route to Pharmacy Electronically, [facility] [id number], Partial fill upon patient request if the prescription is for a schedule II opioid drug., 160, cm, 04/04/24 13:39:00 EDT, Height, 81.81, kg, 04/02/24 15:08:00 EDT, Dry Weight Start Date: 04/04/24 Status: Ordered Quantity: 100.0 Unit: capsule Repeat number: 5 Indication: Slow transit constipation cyclobenzaprine 5 mg oral tablet 1 tablet = 5 mg, By Mouth, 3 times a day, as needed for pain, # 21 tablet, 1 Refills, Maintenance, 06/26/24 8:53:00 AM EST, Tablet, [facility] [id number], Partial fill upon patient request if the prescription is for a schedule II opioid drug., 160, cm, 05/23/24 9:46:00 EDT, H eight, 76.31, kg, 04/09/24 8:27:00 EDT, Dry Weight Start Date: 06/26/24 Stop Date: 07/10/24 Status: Ordered Quantity: 21.0 Unit: tablet Repeat number: 2 diclofenac 1% topical gel 1 application, Topically, 4 times a day, (ALEKSANDRA STATED THAT THIS MED HAS TOO MANY SIDE AFFECTS SHEWILL NOT USE IT), Maintenance, 09/07/22 1:32:00 PM EST, Gel, ; Start Date: 09/07/22 Status: Ordered Repeat number: 1 divalproex sodium 500 mg oral tablet, extended release 3 tablets, By Mouth, Daily at bedtime, 0 Refills, Maintenance, 06/29/16 1:36:42 AM EST Start Date: 06/29/16 Status: Ordered Repeat number: 1 Dulera 200 mcg-5 mcg/inh inhalation aerosol 2 puffs, Inhalation, 2 times a day, rinse mouth and throat after use covering for PCP, # 13 Gm, 3 Refills, Maintenance, 03/04/24 4:53:00 PM EDT, Aerosol, [facility] [id number], ., 2 puffs Inhalation 2 times a day,Instr:rinse mouth and throat after use; covering for PCP, 160,cm, 01/04/24 10:06:00 EDT, Height, 81.81, kg, 01/04/24 10:06:00 EDT, Dry Weight Start Date: 03/04/24 Status: Ordered Quantity: 13.0 Unit: g Repeat number: 4 gabapentin 300 mg oral capsule 300 mg, 1, capsule, By Mouth, 3 times a day, Refills 0, Maintenance, 05/10/21 12:10:00 PM EDT, ; Start Date: 05/10/21 Status: Ordered Repeat number: 1 Gloves See Instructions, # 100 each, Refills 11, Tot. Refills 11, Maintenance, use 4-5x daily. N39.41, R19.8 size medium. dx N31.9 neurogenic bladder, 06/22/23 4:00:00 PM EST, Supply Start Date: 06/22/23 Status: Ordered Quantity: 100.0 Unit: each Repeat number: 12 glycerin adult rectal suppository 1 supp, Rectally, Daily, PRN for constipation, # 24 supp, 1 Refills, Maintenance, 11/21/22 11:35:00 AM EDT, Suppository, [facility] [id number], Partial fill upon patient request if the prescription is for a schedule II opioid drug., 160, cm, 11/21/22 9:37:00 EDT, Height, 61.36, kg, 11/09/22 8:12:00 EDT, Dry Weight Start Date: 11/21/22 Status: Ordered Quantity: 24.0 Unit: supp Repeat number: 2 Golytely - oral powder for reconstitution See Instructions, Follow instructions from GI, # 4,000 mL, 0 Refills, Maintenance, 04/04/24 2:02:00 PM EDT, [facility] [id number], Partial fill upon patient request if the prescription is for a schedule II opioid drug., Follow instructions from GI, 160, cm, 04/04/24 13:39:00EDT, Height, 81.81, kg, 04/02/24 15:08:00 EDT, Dry Weight Start Date: 04/04/24 Status: Ordered Quantity: 4000.0 Unit: mL Repeat number: 1 Indication: Encounter for other preprocedural examination hydrOXYzine pamoate 50 mg oral capsule 1 capsule = 50 mg, By Mouth, 2 times a day, PRN NEEDED, (NOT TAKING MADE HER SICK) Start Date: 09/07/22 Status: Ordered Repeat number: 1 mirabegron 50 mg oral tablet, extended release 1 tablet = 50 mg, By Mouth, Daily, do not crush or chew. for urinary incontinence Discontinue mirabegron 25 mg, # 90 tablet, 3 Refills, Maintenance, 04/02/24 7:08:00 PM EDT, ER Tablet, [facility] [id number], 160, cm, 04/02/24 15:08:00 EDT, Height, 81.81, kg, 04/02/24 15:08:00 EDT, Dry Weight Start Date: 04/02/24 Status: Ordered Quantity: 90.0 Unit: tablet Repeat number: 4 MiraLax oral powder for reconstitution = 17 Gm, By Mouth, Daily, dissolve in water or juice. My increase to 2-3 times a day as needed for constipation, # 255 Gm, 2 Refills, Maintenance, 04/04/24 1:58:00 PM EDT, [facility] [id number], Partial fill upon patient request if the prescription is for a schedule II opioid drug., 17 Gm By Mouth Daily,x30 days,Instr:dissolve in water or juice. My increase to 2-3 times a day as needed for constipation, 160, cm, 04/04/24 13:39:00 EDT, Height, 81.81, kg, 04/02/24 15:08:00EDT, Dry Weight Start Date: 04/04/24 Stop Date: 07/03/24 Status: Ordered Quantity: 255.0 Unit: g Repeat number: 3 Indication: Slow transit constipation multivitamin Multiple Vitamins oral tablet 1 tablet, By Mouth, Daily, # 90 tablet, 0 Refills, Maintenance, 08/05/22 3:49:00 PM EST, Tablet, [facility] [id number], Partial fill upon patient request if the prescription is for a schedule II opioid drug., 1 tablet By Mouth Daily, 160, cm, 08/05/22 15:39:00 EST, Height, 67.5, kg, 02/06/22 3:46:00 EDT, Dry Weight Start Date: 08/05/22 Status: Ordered Quantity: 90.0 Unit: tablet Repeat number: 1 Indication: Weakness naltrexone 50 mg oral tablet 1 tablet = 50 mg, By Mouth, Daily in AM, 0 Refills, Maintenance, 09/07/22 12:21:00 PM EST, Tablet, ; Start Date: 09/07/22 Status: Ordered Repeat number: 1 naproxen 250 mg oral tablet 250 mg, 1, tablet, By Mouth, 2 times a day, PRN, # 20 tablet, Refills 0, Tot. Refills 0, Maintenance, for pain, 11/09/22 8:56:00 AM EDT, Route to Pharmacy Electronically, [facility] [id number], Partial fill upon patient request if the prescription is for a schedule II opioiddrug., 160, cm, 11/09/22 8:12:00 EDT, Height, 61.36, kg, 11/09/22 8:12:00 EDT, Dry Weight Start Date: 11/09/22 Status: Ordered Quantity: 20.0 Unit: tablet Repeat number: 1 naproxen 500 mg oral tablet 1 tablet = 500 mg, By Mouth, 2 times a day, PRN for pain, with food, # 40 tablet, 0 Refills, Maintenance, 06/26/24 8:53:00 AM EST, Tablet, [facility] [id number], Partial fill upon patient request if the prescription is for a schedule II opioid drug., 160, cm, 05/23/24 9:46:00 EDT, Height, 76.31, kg, 04/09/24 8:27:00 EDT, Dry Weight Start Date: 06/26/24 Status: Ordered Quantity: 40.0 Unit: tablet Repeat number: 1 Pedialyte oral solution Drink ad juan pablo, By Mouth, Daily, PRN as needed for dehydration, # 1,000 mL, 2 Refills, Maintenance, 04/09/24 10:03:00 AM EDT, [facility] [id number], Partial fill upon patient request if the prescription is for a schedule II opioid drug., Drink ad juan pablo By Mouth Daily,PRN:as needed for dehydration, 160, cm, 04/09/24 8:27:00 EDT, Height, 76.31, kg, 04/09/24 8:27:00 EDT, Dry Weight Start Date: 04/09/24 Status: Ordered Quantity: 1000.0 Unit: mL Repeat number: 3 Indication: Noninfective gastroenteritis and colitis, unspecified Pull-Ups size large Pull-Ups size large, See Instructions, # 180 each, Refills 11, Tot. Refills 11, Maintenance, needs 6 per day N39.41, R19.8 . dx N31.9 neurogenic bladder, 08/24/23 2:45:00 PM EST, Supply Start Date: 08/24/23 Status: Ordered Quantity: 180.0 Unit: each Repeat number: 12 QUEtiapine 300 mg oral tablet 30 each, 0 Refill(s), TAKE 1 TABLET BY MOUTH IN THE MORNING. TAKE WITH 400 MG AND 50 MG TABLETS, 0 Refills, 06/20/23 10:36:00 AM EST, Partial fill upon patient request if the prescription is for a schedule II opioid drug. Start Date: 06/20/23 Status: Ordered Repeat number: 1 QUEtiapine 400 mg oral tablet 30 each, 0 Refill(s), TAKE 1 TABLET BY MOUTH AT BEDTIME, 0 Refills, 06/20/23 10:36:00 AM EST, Partial fill upon patient request if the prescription is for a schedule II opioid drug. Start Date: 06/20/23 Status: Ordered Repeat number: 1 Ventolin HFA 108 mcg/inh inhalation aerosol with adapter 1 puffs, Inhalation, 4 times a day, PRN for wheezing, covering for PCP, # 18 Gm, 4 Refills, Maintenance, 03/04/24 4:53:00 PM EDT, Aerosol, [place], [place] - [id number], Partial fill upon patient request if the prescription is for a schedule II opioid drug., 160, cm, 01/04/24 10:06:00 EDT, Height, 81.81, kg, 01/04/24 10:06:00 EDT, Dry Weight Start Date: 03/04/24 Status: Ordered Quantity: 18.0 Unit: g Repeat number: 5 Vitamin D3 2000 intl units oral capsule 1 capsule = 2,000 International_Units, By Mouth, Daily, # 90 capsule, 3 Refills, Maintenance, 04/24/24 11:15:00 AM EDT, [facility] - [place], [place] - [id number], Partial fill upon patient request if the prescription is for a schedule II opioid drug., 160, cm, 04/09/24 8:27:00 EDT, Height, 76.31, kg, 04/09/24 8:27:00 EDT, Dry Weight Start Date: 04/24/24 Status: Ordered Quantity: 90.0 Unit: capsule Repeat number: 4 zolpidem 5 mg oral tablet 1 tablet = 5 mg, By Mouth, Daily at bedtime, 0 Refills, Maintenance, 04/04/24 1:43:00 PM EDT, Partial fill upon patient request if the prescription is for a schedule II opioid drug. Start Date: 04/04/24 Status: Ordered Repeat number: 1 Problem List Condition Confirmation Course Effective Dates Status H ealth Status Informant Abnormal findings on diagnostic imaging of breast Confirmed Active Alcohol use disorder, moderate, in early remission Confirmed Active Chronic diarrhea Confirmed Active Cocaine use disorder, severe, in early remission Confirmed Active Family history of colon cancer Confirmed Active H/O recent trauma Confirmed Active Hypercalcemia Confirmed Active HTN (hypertension) Confirmed Active Fecal incontinence Confirmed Active Anxiety and depression Confirmed Active Urinary incontinence, mixed Confirmed Active Multiple pelvic fractures Confirmed Active Other Specified Benign Mammary Dysplasias Confirmed Active Leg weakness, bilateral Confirmed Active Post traumatic stress disorder (PTSD) Confirmed Active Encounter for screening colonoscopy Confirmed Active Constipation due to slow transit Confirmed Active Social History Social History Type Response Smoking Status 10 or more cigarette s (1/2 pack or more)/day in last 30 days entered on: 01/04/24 Sex Sex Representation Female (finding) Patient Care team information Care Team Personnel Name: Wan Simmons RN Position: [facility] ED RN W/OE and Tasks Member Role: Primary Care Nurse Name: Sanjana Cordova RN Position: [facility] AMB Nurse Member Role: Primary Care Nurse Name: Ksasy Curiel MD Position: [facility] Physician - Primary Care Member Role: PCP Address: [address] [place] [id number]- Telecom: Name: Rita DYSON, Vinnie Position: [facility] ED RN W/OE and Tasks Member Role: Primary Care Nurse Name: Edyta Sanchez RN Position: [facility] Hospital Lift Operator Member Role: Primary Care Nurse Name: Reymundo Kwok MD Position: Reference Physician Member Role: Lifetime Consulting Physician Address: [address] [place] [address] [address] [facility] [address] Telecom: Name: Kitty Hickman RN Position: S RN Member Role: Primary Care Nurse Care Team Related Persons Name: TARA JASON Name: CARY MICHAELS Name: MARIELLA FRANKLIN Name: KODY WADE Insurance Providers Guarantor name: ALEKSANDRA WADE Health Plan Information #: 1 Payer: MEDICARE PART B OUTPT Member Number: NA Policy Number: NA Group Number: NA Health Plan Information #: 2 Payer: [employer] Member Number: NA Policy Number: NA Group Number: NA Health Plan Information #: 3 Payer: [facility] Member Number: NA Policy Number: NA Group Number: NA
--- OUTSIDE RECORDS SUMMARY | 2024-07-24 01:59 | XMS_ITS ---
Author Name [facility] [facility] [place] [facility] [place] Address [address] [place] [id number] Care Team Providers Care Escalator Service Mechanic Name Role Phone NORMA GOMES Primary Care [...] AKIKO WOODWARD Jul 24, 2016 MEDICAI D [id number] SABINE WADE PATIENT MEDICARE (WNR) MEDICARE (M) PART B Jan 22, 1996 PART B [id number] SABINE WADE PATIENT MEDICARE (WNR) MEDICARE (M) PART B Jan 22, 1996 PART B [id number] SABINE WADE PATIENT MEDICARE (WNR) MEDICARE (M) PART A Mar 24, 1995 PART A [id number] SABINE WADE PATIENT Selected Encounter This section includes the information on record at [place] for the Encounter. Date/Time Encounter Type Encounter Description Reason Pro vider Source Aug 03, 2023 12:00 AM Outpatient Encounter EVENT (HISTORICAL) IHE Encounter Template Text not used by [place] Plan of Treatment: Future Appointments (+ 6 months) and Future Tests (+/- 45 days) The Plan of Treatment section includes future care activities for the patient from all [place] [facility]. This section includes future appointments and future orders which are active, pending or scheduled. Future Appointments This section includes appointments that were scheduled to occur 6 months from the date of the Encounter, up to a maximum of 20 appointments. The data comes from all [place] treatment facilities. Appointment Date/Time Appointment Type Appointme nt Facility Name Sep 04, 2023 11:00 AM AMBULATORY - PSYCHIATRY SP [facility] Dec 26, 2023 09:00 AM AMBULATORY - MEDICINE [facility] Jan 12, 2024 03:00 PM AMBULATORY - MEDICINE [facility] Jan 15, 2024 11:00 AM AMBULATORY - MEDICINE [facility] [place] [facility] Jan 17, 2024 10:40 AM AMBULATORY - MEDICINE [facility] Active, Pending, and Scheduled Orders This section includes a listing of several types of active, pending, and scheduled orders, including clinic medications orders, diagnostic test orders, procedure orders and consult orders; where the start date of the order is 45 days before the date of the Encounter or 45 days after the date of theEncounter. The data comes from all [facility]. Test Date/Time Test Type Test Details Facility Name Sep 04, 2023 12:29 PM Consult Order [facility] (OUTPT) Cons Waste Disposal Attendant's Choice [place] Social History: Smoking Status (Most current) and Tobacco Use (All prior to encounter date) This section includes the most current, and the historical, smoking and tobacco- related health factors from the [place] facility where the Encounter took place. Current Smoking Status This section includes the most current smoking, or tobacco-related health factor, from the [place] facility where the Encounter took place. Date/Time Current Smoking Status Comment Luis parsons May 30, 2022 02:02 PM VA-TOBACCO USER EVERY DAY [facility] Tobacco Use History This section includes a history of the smoking, or tobacco-related health factors, that were collected on or before the date of the Encounter. The data comes from the [place] facility where the Encounter took place. 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 [facility] [place] [facility] May 30, 2022 02:02 PM VA-TOBACCO USE MED NO [facility] [place] [facility] May 30, 2022 02:02 PM VA-TOBACCO USE WI 30 MIN OF WAKEUP [facility] [place] [facility] May 30, 2022 02:02 PM VA-TOBACCO USER EVERY DAY [facility] [place] [facility] Jun 04, 2021 11:04 AM VA-TOBACCO USE 30 YEARS OR MORE [facility] [place] [facility] Jun 04, 2021 11:04 AM VA-TOBACCO USE ADVICE [facility] [place] [facility] Jun 04, 2021 11:04 AM VA-TOBACCO USE 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 Date/Time Encounter Note(s) Provider Source Aug 03, 2023 12:00 AM RADIOLOGY NONVA NO TE: LOCAL TITLE: NON-VA RADIOLOGY STANDARD TITLE: RADIOLOGY NONVA NOTE DATE OF NOTE: AUG 03, 2023 ENTRY DATE: AUG 11, 2023@10:02:02 AUTHOR: TRACIE RIVERA EXP COSIGNER: URGENCY: STATUS: COMPLETED VistA Imaging - Scanned Document SCANNED DOCUMENT SIGNATURE NOT REQUIRED Electronically Filed: 08/11/2023 by: TRACIE RIVERA ANIMAL DOCTOR TRACIE RIVERA [place] [facility]
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
--- OUTSIDE RECORDS SUMMARY | 2024-07-24 01:59 | XMS_ITS | Encounter Summary ---
Author Name [facility] [place] Organization [place] Address [address] [place] [address] Care Team Providers Care Chancellor Name Role Phone NORMA GOMES Primary Care [...] AKIKO WOODWARD Jul [birth year], 2016 MEDICAI D [id number] SABINE WADE PATIENT MEDICARE (WNR) MEDICARE (M) PART B Jan 22, 1996 PART B [id number] SABINE WADE PATIENT MEDICARE (WNR) MEDICARE (M) PART B Jan 22, 1996 PART B [id number] SABINE WADE PATIENT MEDICARE (WNR) MEDICARE (M) PART A Mar 24, 1995 PART A [id number] SABINE WADE PATIENT Selected Encounter This section includes the information on record at [place] for the Encounter. Date/Time Encounter Type Encounter Description Reason Pro vider Source Aug 09, 2023 02:53 PM Outpatient Encounter PRIMARY CARE/MEDICINE IHE Encounter Template Text not used by [place] Plan of Treatment: Future Appointments (+ 6 months) and Future Tests (+/- 45 days) The Plan of Treatment section includes future care activities for the patient from all [place] [facility]. This section includes future appointments and future orders which are active, pending or scheduled. Future Appointments This section includes appointments that were scheduled to occur 6 months from the date of the Encounter, up to a maximum of 20 appointments. The data comes from all [facility] facilities. Appointment Date/Time Appointment Type Appointme nt Facility Name Sep 04, 2023 11:00 AM AMBULATORY - PSYCHIATRY [facility] Dec 26, 2023 09:00 AM AMBULATORY - MEDICINE [facility] Jan 12, 2024 03:00 PM AMBULATORY - MEDICINE [facility] Jan 15, 2024 11:00 AM AMBULATORY - MEDICINE [facility] NTR [place] [facility] Jan 17, 2024 10:40 AM AMBULATORY - MEDICINE [facility] Active, Pending, and Scheduled Orders This section includes a listing of several types of active, pending, and scheduled orders, including clinic medications orders, diagnostic test orders, procedure orders and consult orders; where the start date of the order is 45 days before the date of the Encounter or 45 days after the date of theEncounter. The data comes from all [facility]. Test Date/Time Test Type Test Details Facility Name Sep 04, 2023 12:29 PM Consult Order GRIEF AND LOSS GROUP/[facility] (OUTPT) Cons Auctioneer Art's Choice [place] Social History: Smoking Status (Most current) and Tobacco Use (All prior to encounter date) This section includes the most current, and the historical, smoking and tobacco- related health factors from the [place] facility where the Encounter took place. Current Smoking Status This section includes the most current smoking, or tobacco-related health factor, from the [place] facility where the Encounter took place. Date/Time Current Smoking Status Comment Luis parsons May 30, 2022 02:02 PM VA-TOBACCO USER EVERY DAY [facility] Tobacco Use History This section includes a history of the smoking, or tobacco-related health factors, that were collected on or before the date of the Encounter. The data comes from the [place] facility where the Encounter took place. Date/Time Smoking Status/Tobacco Use Comment F acility May 30, 2022 02:02 PM VA-TOBACCO USE ADVICE VA [facility] [place] [facility] May 30, 2022 02:02 PM VA-TOBACCO USE VALUE ANALYSIS COORDINATOR NO [facility] [place] [facility] May 30, 2022 02:02 PM VA-TOBACCO USE MED NO VA [facility] [place] [facility] May 30, 2022 02:02 PM VA-TOBACCO USE WI 30 MIN OF WAKEUP [facility] [place] [facility] May 30, 2022 02:02 PM VA-TOBACCO USER EVERY DAY VA [facility] [place] [facility] Jun 04, 2021 11:04 AM VA-TOBACCO USE 30 YEARS OR MORE VA [facility] [place] [facility] Jun 04, 2021 11:04 AM VA-TOBACCO USE ADVICE [facility] [place] [facility] Jun 04, 2021 11:04 AM VA-TOBACCO USE VALUE ANALYSIS COORDINATOR NO [facility] [place] [facility] Jun 04, 2021 11:04 AM VA-TOBACCO USE MED NO VA [facility] [place] [facility] Jun 04, 2021 11:04 AM VA-TOBACCO USE WI 30 MIN OF WAKEUP [facility] [place] [facility] Jun 04, 2021 11:04 AM VA-TOBACCO USER EVERY DAY [facility] [place] [facility] Encounter Notes: All associated encounter notes This section contains the clinical notes associated to the Encounter. Date/Time Encounter Note(s) Provider Source Aug 09, 2023 02:53 PM [facility] : [facility]AL TITLE: [facility] BREAST IMAGING FOLLOW-UP STANDARD TITLE: [facility] NOTE DATE OF NOTE: AUG 09, 2023@14:53 ENTRY DATE: AUG 09, 2023@14:53:52 AUTHOR: UDAY YEPEZ EXP COSIGNER: URGENCY: STATUS: COMPLETED Record prior or outside mammogram: Written Report Available Outside report Received on: August 09, 2023 Location: [facility] Screening Breast Tomosynthesis Date: August 03, 2023 Patient does not have dense breast tissue Interpretation of results and decision making Summary of results: BIRAD 2:Density B Radiologist recommends the following: Return for screening mammogram in two years Method patient contacted by: Patient already notified/not needed Comment: by NON VA ordering provider Additional Information: Additional Information: /sony/ Uday Yepez RN, BSN Women's Healthcare Navigator, RN Signed: 08/09/2023 14:57 UDAY YEPEZ
--- OUTSIDE RECORDS SUMMARY | 2024-07-24 02:00 | XMS_ITS | Encounter Summary ---
Author Name Department of Veter[facility] [place] Organization [facility] [place] Address [address] [place] [address] Care Team Providers Care Emergency Specialist Name Role Phone NORMA GOMES Primary Care [...] AKIKO WOODWARD Jul 24, 2015 MEDICAI D [id number] SABINE WADE PATIENT MEDICARE (WNR) MEDICARE (M) PART B Jan 22, 1996 PART B [id number] SABINE WADE PATIENT MEDICARE (WNR) MEDICARE (M) PART B Jan 22, 1996 PART B [id number] [phone] SABINE WADE PATIENT MEDICARE (WNR) MEDICARE (M) PART A Mar 24, 1995 PART A [id number] SABINE WADE PATIENT Selected Encounter This section includes the information on record at [place] for the Encounter. Date/Time Encounter Type Encounter Description Reason Pro vider Source Jun 04, 2024 01:00 PM Outpatient Encounter OPTOMETRY IHE Encounter Template Text not used by [place] Plan of Treatment: Future Appointments (+ 6 months) and Future Tests (+/- 45 days) The Plan of Treatment section includes future care activities for the patient from all [place] [facility]. This section includes future appointments and future orders which are active, pending or scheduled. Future Appointments This section includes appointments that were scheduled to occur 6 months from the date of the Encounter, up to a maximum of 20 appointments. The data comes from all [place] treatment facilities. Appointment Date/Time Appointment Type Appointme nt Facility Name Sep 03, 2024 03:00 PM AMBULATORY - MEDICINE [facility] Active, Pending, and Scheduled Orders This section includes a listing of several types of active, pending, and scheduled orders, including clinic medications orders, diagnostic test orders, procedure orders and consult orders; where the start date of the order is 45 days before the date of the Encounter or 45 days after the date of theEncounter. The data comes from all [facility]. Test Date/Time Test Type Test Details Facility Name May 14, 2024 12:00 AM Laboratory - Chemi rust Order OCCULT BLOOD FIT X1 SCREEN (MFP ONLY) STOOL FECES [facility] Social History: Smoking Status (Most current) and Tobacco Use (All prior to encounter date) This section includes the most current, and the historical, smoking and tobacco- related health factors from the [place] facility where the Encounter took place. Current Smoking Status This section includes the most current smoking, or tobacco-related health factor, from the [place] facility where the Encounter took place. Date/Time Current Smoking Status Comment Facil ity May 30, 2022 02:02 PM VA-TOBACCO USER EVERY DAY [facility] Tobacco Use History This section includes a history of the smoking, or tobacco-related health factors, that were collected on or before the date of the Encounter. The data comes from the [place] facility where the Encounter took place. Date/Time Smoking Status/Tobacco Use Comment F acility May 30, 2022 02:02 PM VA-TOBACCO USE ADVICE [place] [place] [facility] May 30, 2022 02:02 PM VA-TOBACCO USE SET OFF PRESS OPERATOR NO OR CNTR [place] [facility] May 30, 2022 02:02 PM VA-TOBACCO USE MED NO OR CNTR [place] [facility] May 30, 2022 02:02 PM VA-TOBACCO USE WI 30 MIN OF WAKEUP VA [facility] [place] [facility] May 30, 2022 02:02 PM VA-TOBACCO USER EVERY DAY VA [facility] [place] [facility] Jun 04, 2021 11:04 AM VA-TOBACCO USE 30 YEARS OR MORE VA [facility] [place] [place] [facility] Jun 04, 2021 11:04 AM VA-TOBACCO USE ADVICE VA [facility] [place] [facility] Jun 04, 2021 11:04 AM VA-TOBACCO USE SET OFF PRESS OPERATOR NO VA [facility] [place] [facility] Jun 04, 2021 11:04 AM VA-TOBACCO USE MED NO VA [facility] [place] [place] [facility] Jun 04, 2021 11:04 AM VA-TOBACCO USE WI 30 MIN OF WAKEUP VA [facility] [place] [facility] Jun 04, 2021 11:04 AM VA-TOBACCO USER EVERY DAY VA [facility] [place] [facility] Encounter Notes: All associated encounter notes This section contains the clinical notes associated to the Encounter. Date/Time Encounter Note(s) Provider Source Jun 04, 2024 01:00 PM ADMINISTRATIVE NOT E: LOCAL TITLE: ADMINISTRATIVE RECALL NOTE STANDARD TITLE: ADMINISTRATIVE NOTE DATE OF NOTE: JUN 04, 2024@13:00 ENTRY DATE: JUN 04, 2024@13:00:33 AUTHOR: MIKA BUSH EXP COSIGNER: URGENCY: STATUS: COMPLETED ADMINISTRATIVE RECALL NOTE Has ADDENDA RTC orders: Unable to contact patient: Attempts to contact: 1st attempt: Left voicemail 2nd attempt: Letter mailedDisposition 3rd attempt: 4th attempt: /mary BUSH [employer] [employer] VICE PRESIDENT Signed: 06/04/2024 13:00 06/18/2024 ADDENDUM STATUS: COMPLETED RTC 06/18/2025 dispositioned due to veterans failure to respond to all contact efforts per department standards. Dispositioned on 06/18/2024 /mary BUSH [facility] [facility] VICE PRES[facility] Signed: 06/18/2024 09:30 MIKA BUSH [place] CNTRL [place] [facility] Jun 04, 2024 01:00 PM LETTERS: LOCAL TITLE: PATIENT LETTER (B) STANDARD TITLE: LETTERS DATE OF NOTE: JUN 04, 2024@13:00 ENTRY DATE: JUN 04, 2024@13:00:58 AUTHOR: MIKA BUSH EXP COSIGNER: URGENCY: STATUS: COMPLETED JUN 04, [address] [place], [place] [address] Dear ALEKSANDRA WADE Thank you for choosing the [facility] ([place]) [facility] as your primary choice for health care. As a partner in your health care, we are contacting you in writing since we have been unsuccessful in our attempts to reach you to date. We want to assure you we are doing everything possible to schedule Veterans for their [place] medical care appointments. Our records indicate you are due for an appointment in OPTOMETRY . If you would like to be seen, please contact [place] Call Center at ext. [phone] to schedule an appointment. Thank you for your service to our nation, and we look forward to hearing from you soon. Sincerely, [facility] [address] [facility] [address] [place] [address] [place] [address] [facility] [address] [facility] [address] [place] [address] [place] [address] ext. [phone] [facility] [address] [address] [place] [address] ext. [phone] MIKA BUSH [place] CNT WSTRN [facility]
--- OUTSIDE RECORDS SUMMARY | 2024-07-24 02:00 | XMS_ITS | Encounter Summary ---
Author Name [facility] [facility] [place] [facility] [place] Address [address] [place] [address] Care Team Providers Care Bookkeeping Machine Mechanic Name Role Phone NROMA GOMES Primary Care Provider Unavailabl e Insurance [...] AKIKO WOODWARD Jul 24, 2016 MEDICAI D [id number] SABINE WADE PATIENT MEDICARE (WNR) MEDICARE (M) PART B Jan 22, 1996 PART B [id number] SABINE WADE PATIENT MEDICARE (WNR) MEDICARE (M) PART B Jan 22, 1996 PART B [id number] SABINE WADE PATIENT MEDICARE (WNR) MEDICARE (M) PART A Mar 24, 1995 PART A [id number] SABINE WADE PATIENT Selected Encounter This section includes the information on record at [place] for the Encounter. Date/Time Encounter Type Encounter Description Reason Pro vider Source Jan 15, 2024 02:40 PM Outpatient Encounter OPTOMETRY IHE Encounter Template Text not used by [place] Plan of Treatment: Future Appointments (+ 6 months) and Future Tests (+/- 45 days) The Plan of Treatment section includes future care activities for the patient from all [place] treatmentfacilities. This section includes future appointments and future orders which are active, pending or scheduled. Future Appointments This section includes appointments that were scheduled to occur 6 months from the date of the Encounter, up to a maximum of 20 appointments. The data comes from all [place] treatment facilities. Appointment Date/Time Appointment Type Appointme nt Facility Name Jan 17, 2024 10:40 AM AM[facility]ULATORY [facility] MED[facility]INE [facility] Apr 23, 2024 02:00 PM AMBULATORY - MEDICINE [facility] Lab Results: +/- 30 days of the encounter This section includes the Chemistry and Hematology Lab Results on record with [place] for the patient. Radiology Reports and Pathology Reports are provided separately, in subsequent sections. Lab Results This section contains the Chemistry/Hematology Results that were resulted 30 days before or 30 daysafter the date of the Encounter. Date/Time Source Result Type Result - Unit Interpretation Reference Range Comment Jan 12, 2024 02:40 PM [facility] URINALYSIS Specimen Type: URINE Comment: If Glucose = >500 and Ketones are positive, please alert the Physician. Ordering Provider: MIKY ARITA Report Released Date/Time: Apr 27, 2023 03:37 PM Reporting Lab: [address] [address] Performing Lab: [address] [address] UA COLOR Yellow Yellow UA APPEARANCE Clear Clear UA GLUCOSE NEGATIVE mg/dL Negative UA KETONES TRACE mg/dL Negative UA BLOOD NEGATIVE mg/dL Negative UA PROTEIN 70 mg/dL Negative UA NITRITE NEGATIVE mg/dL Negative UA BILIRUBIN NEGATIVE mg/dL Negative UA SPECIFIC GRAVITY 1.036 H 1.016-1.022 UA pH 6.0 5.0-9.0 UA UROBILINOGEN 2.0 mg/dL <2.0 UA LEUKOCYTE TRACE Negative Jan 12, 2024 12:32 PM [facility] BASIC METABOLIC PANEL (fasting) Specime n Type: SERUM No comment entered. Ordering Provider: MIKY ARITA Report Released Date/Time: Apr 27, 2023 03:37 PM Reporting Lab: [address] [address] Performing Lab: [address] [address] UREA NITROGEN 14 mg/dL 7-25 GLUCOSE 92 mg/dL 65-100 SODIUM 140 mmol/L 135-145 POTASSIUM 4.7 mmol/L 3.5-5.0 CHLORIDE 105 mmol/L 100-110 CO2 23 meq/L 20-30 CREATININE, Serum 0.71 mg/dL 0.50-1.40 eGFR(CKD-EPI 2020) >90 mL/min >60 Jan 12, 2024 12:32 PM [facility] LIPID PANEL FASTING Specimen Type: SERUM No comment entered. Ordering Provider: MIKY ARITA Report Released Date/Time: Apr 27, 2023 03:37 PM Reporting Lab: [address] [address] Performing Lab: [address] [address] CHOLESTEROL 269 mg/dL H TRIGLYCERIDE 412 mg/dL H 0-150 LDL calculated Reflex to dLD L mg/dL 0-129 CHOL/HDL 5.2 HDL CHOLESTEROL 52 mg/dL 40-60 LDL DIRECT 167 mg/dL H Jan 12, 2024 12:32 PM [facility] LIVER FUNCTION Specimen Type: SERUM No comment entered. Ordering Provider: MIKY ARITA Report Released Date/Time: Apr 27, 2023 03:37 PM Reporting Lab: [address] [address] Performing Lab: [address] [address] PROTEIN,TOTAL 7.2 g/dL 6.0-8.3 ALBUMIN 3.8 g/dL 3.5-5.0 ALKALINE PHOSPHATASE 99 U/L 40-150 AST 17 U/L 5-34 ALT 15 U/L BILIRUBIN, TOTAL 0.2 mg/dL 0.2-1.2 Jan 12, 2024 12:32 PM DAISY HEMOGLOBIN A1C PANEL Specimen Type: BLOOD Comment: [...] Apr 27, 2023 03:37 PM Reporting Lab: [address] [address] Performing Lab: [address] [address] HEMOGLOBIN A1C 5.8 H 4.0-5.6 Jan 12, 2024 12:32 PM DAISY CBC AND DIFF (AUTO) Specimen Type: BLOOD No comment entered. Ordering Provider: MIKY ARITA Report Released Date/Time: Apr 27, 2023 03:37 PM Reporting Lab: [address] [address] Performing Lab: [address] [address] WBC 7.22 10*3/uL 4.50-11.00 RBC 4.24 10*6/uL [...] 10*3/uL 0.00-0.00 Jan 12, 2024 12:32 PM DA[facility]Y TSH Specimen Type: SERUM No comment entered. Ordering Provider: MIKY ARITA Report Released Date/Time: Apr 27, 2023 03:37 PM Reporting Lab: [place] [facility] [place] [facility] [address] [address] Performing Lab: [place] [facility] [address] [address] TSH 1.46 u[IU]/mL 0.35-5.00 Social History: Smoking Status (Most current) and Tobacco Use (All prior to encounter date) This section includes the most current, and the historical, smoking and tobacco- related health factors from the [place] facility where the Encounter took place. Current Smoking Status This section includes the most current smoking, or tobacco-related health factor, from the [place] facility where the Encounter took place. Date/Time Current Smoking Status Comment Facil ity May 30, 2022 02:02 PM VA-TOBACCO USE [place] 30 MIN OF WAKEUP [place] [facility] Tobacco Use History This section includes a history of the smoking, or tobacco-related health factors, that were collected on or before the date of the Encounter. The data comes from the [place] facility where the Encounter took place. Date/Time Smoking Status/Tobacco Use Comment F acility May 30, 2022 02:02 PM VA-TOBACCO USE ADVICE [place] [facility] [place] [facility] May 30, 2022 02:02 PM VA-TOBACCO USE SALES REPRESENTATIVE METALS NO [place] [facility] [place] [facility] May 30, 2022 02:02 PM VA-TOBACCO USE MED NO [place] [facility] [place] [facility] May 30, 2022 02:02 PM VA-TOBACCO USE WI 30 MIN OF WAKEUP [place] [facility] [place] [facility] May 30, 2022 02:02 PM VA-TOBACCO USER EVERY DAY [facility] [place] [facility] Jun 04, 2021 11:04 AM VA-TOBACCO USE 30 YEARS OR MORE [facility] [place] [facility] Jun 04, 2021 11:04 AM VA-TOBACCO USE ADVICE [place] [facility] [place] [facility] Jun 04, 2021 11:04 AM VA-TOBACCO USE SALES REPRESENTATIVE METALS NO [facility] [place] [facility] Jun 04, 2021 11:04 AM VA-TOBACCO USE MED NO [facility] [place] [facility] Jun 04, 2021 11:04 AM VA-TOBACCO USE WI 30 MIN OF WAKEUP [facility] [place] [facility] Jun 04, 2021 11:04 AM VA-TOBACCO USER EVERY DAY [facility] Encounter Notes: All associated encounter notes This section contains the clinical notes associated to the Encounter. Date/Time Encounter Note(s) Provider Source Jan 15, 2024 02:40 PM CLERICAL NOTE: LOCAL TITLE: APPOINTMENT NO SHOW STANDARD TITLE: CLERICAL NOTE DATE OF NOTE: JAN 15, 2024@14:40 ENTRY DATE: JAN 15, 2024@14:40:26 AUTHOR: JUNE DAMON EXP COSIGNER: URGENCY: STATUS: COMPLETED Patient Name: ALEKSANDRA WADE Patient SSN: [id number] Date and time of Appointment No show : 01/15/24 14:40 PATIENT PHONE - PHONE NUMBER [CELLULAR] - Patient's medical record was reviewed. Follow-up actions were determined and initiated: Please check/complete as applies: [X]Telephoned Directly [X]Re-scheduled for next available appt [ ]Sent a N0-show letter ( must call for appointment) [ ]Other (Emergent/Overbook, etc.): Additional Comments: Future Clinic Visits 01/06/2025 13:00 CWM/SO/PACT EIGHT NAHEED /sony/ JUNE DAMON ADVANCED MACHINE OPERATOR Signed: 01/15/2024 14:40 JUNE DAMON [place] [facility]
--- OUTSIDE RECORDS SUMMARY | 2024-07-24 02:00 | XMS_ITS | Encounter Summary ---
Author Name [facility] [facility] [place] [facility] [place] Address [address] [place] [address] Care Team Providers Care Marketing And Development Coordinator Name Role Phone NORMA GOMES Primary Care [...] AKIKO WOODWARD Jul 24, 2016 MEDICAI D [id number] SABINE WADE PATIENT MEDICARE (WNR) MEDICARE (M) PART B Jan 22, 1996 PART B [id number] [phone] [id number] SABINE WADE PATIENT MEDICARE (WNR) MEDICARE (M) PART B Jan 22, 1996 PART B [id number] SABINE WADE PATIENT MEDICARE (WNR) MEDICARE (M) PART A Mar 24, 1995 PART A [id number] SABINE WADE PATIENT Selected Encounter This section includes the information on record at [place] for the Encounter. Date/Time Encounter Type Encounter Description Reason Pro vider Source Mar 28, 2024 09:18 AM Outpatient Encounter ADMIN PAT ACTIVTIES (MASNONCT) IHE Encounter Template Text not used by [place] Plan of Treatment: Future Appointments (+ 6 months) and Future Tests (+/- 45 days) The Plan of Treatment section includes future care activities for the [facility] This section includes future appointments and future orders which are active, pending or scheduled. Future Appointments This section includes appointments that were scheduled to occur 6 months from the date of the Encounter, up to a maximum of 20 appointments. The data comes from all [place] treatment facilities. Appointment Date/Time Appointment Type Appointme nt Facility Name Apr 23, 2024 02:00 PM AMBULATORY - MEDICINE [facility] Sep 03, 2024 03:00 PM AMBULATORY - MEDICINE [facility] Social History: Smoking Status (Most current) [...] 2022 02:02 PM [facility]BACCO [facility] Tobacco Use History This section includes a history of the smoking, or tobacco-related health factors, that were collected on or before the date of the Encounter. The data comes from the [place] facility where the Encounter took place. 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 [place] [facility] [place] [facility] May 30, 2022 02:02 PM VA-TOBACCO USE MED NO [place] [facility] [place] [facility] May 30, 2022 02:02 PM VA-TOBACCO USE WI 30 MIN OF WAKEUP [place] [facility] [place] [facility] May 30, 2022 02:02 PM VA-TOBACCO USER EVERY DAY [facility] [place] [facility] Jun 04, 2021 11:04 AM VA-TOBACCO USE 30 YEARS OR MORE [place] [facility] [place] [facility] Jun 04, 2021 11:04 AM VA-TOBACCO USE ADVICE [facility] [place] [facility] Jun 04, 2021 11:04 AM VA-TOBACCO USE GATE ATTENDANT NO [facility] [place] [facility] Jun 04, 2021 11:04 AM VA-TOBACCO USE MED NO [facility] [place] [facility] Jun 04, 2021 11:04 AM VA-TOBACCO USE WI 30 MIN OF WAKEUP [facility] [place] [facility] Jun 04, 2021 11:04 AM VA-TOBACCO USER EVERY DAY [facility] [place] [facility] Encounter Notes: All associated encounter notes This section contains the clinical notes associated to the Encounter. Date/Time Encounter Note(s) Provider Source Mar 28, 2024 09:18 AM ADMINISTRATIVE NOTE: LOCAL TITLE: CCC: SCHEDULING ADMINISTRATION STANDARD TITLE: ADMINISTRATIVE NOTE DATE OF NOTE: MAR 28, 2024@09:18:54 ENTRY DATE: MAR 28, 2024@09:18:54 AUTHOR: JASVIR WADE EXP COSIGNER: URGENCY: STATUS: COMPLETED CCC: SCHEDULING ADMINISTRATION Has ADDENDA Patient Demographics Patient Name: ALEKSANDRA WADE Patient Primary Phone: [phone] Patient Primary Address: [address] [place] [address] Patient : 1965 Patient Age: 58 Call Back Number: Caller/Recipient Relation to Patient: Self Administrative Administrative Note Reason: Other Administrative Note Comments: is requesting a podiatry consult, she mentioned her toe nails are too long and she cant reach to cut them. Please call her back with further info IMPORTANT: This note was created by [facility] ER Clinical Contact Center staff. Please do not alert the staff member by adding them as a signer for future communications. Alerts are not monitored by this user. /sony/ JASVIR BAHENA 1 CRUZ AMSA Signed: 03/28/2024 09:19 Receipt Acknowledged By: 03/28/2024 10:10 /es/ JOB CENTENO RN-BC REGISTERED NURSE 03/28/2024 11:16 /es/ NATALEE RUGGIERO LPN Licensed Practical Nurse 03/28/2024 ADDENDUM STATUS: COMPLETED [place] has been triaged by tele emergency provider and consult for [facility] podiatry services has been entered. /sony/ JENNIFER CENTENON RN-BC REGISTERED NURSE Signed: 03/28/2024 10:27 JASVIR WADE [place] [facility]
--- OUTSIDE RECORDS SUMMARY | 2024-07-24 02:00 | XMS_ITS | Encounter Summary ---
Author Name [facility] [place] Address [address] [place] [address] Care Team Providers Care Client Technologies Analyst Name Role Phone NORMA GOMES Primary [facility] Providers: All historical and current [...] Relationship to Policy Self MEDICAID MEDICAID MIGUELANGEL PEREZKARINE WOODWARD Jul 24, 2016 MEDICAI D [id number] SABINE WADE PATIENT MEDICARE (WNR) MEDICARE (M) PART B Jan 22, 1996 PART B [id number] SABINE WADE PATIENT MEDICARE (WNR) MEDICARE (M) PART B Jan 22, 1996 PART B [id number] SABINE WADE PATIENT MEDICARE (WNR) MEDICARE (M) PART A Mar 24, 1995 PART A [id number] SABINE WADE PATIENT Selected Encounter This section includes the information on record at [place] for the Encounter. Date/Time Encounter Type Encounter Description Reason Provider Source Apr 23, 2024 02:00 PM OFFICE O/P NEW LOW 30 MIN PODIATRY ICD-10-CM L60.3 Nail dystrophy ALONZO MONTIEL [facility] Encounter Template Text not used by [place] Assessments - Encounter Diagnoses This section includes the primary and secondary diagnoses documented for the Encounter. Date/Time Primary/Secondary Diagnosis Diagnosis Name Provider Source Apr 23, 2024 02:31 PM PRIMARY Nail dystrophy ALONZO MONTIEL [facility] Apr 23, 2024 02:31 PM SECONDARY Ingrowing nail ALONZO MONTIEL [facility] Apr 23, 2024 02:31 PM SECONDARY Pain in left toe(s) ALONZO MONTIEL [facility] Apr 23, 2024 02:31 PM SECONDARY Pain in right toe(s) ALONZO MONTIEL [facility] Apr 23, 2024 02:31 PM SECONDARY Peripheral vascular disease, unspecified ALONZO MONTIEL [facility] Plan of Treatment: Future Appointments (+ 6 months) and Future Tests (+/- 45 days) The Plan of Treatment section includes future care activities for the patient from all [place] treatmentfacilities. This section includes future appointments and future orders which are active, pending or scheduled. Future Appointments This section includes appointments that were scheduled to occur 6 months from the date of the Encounter, up to a maximum of 20 appointments. The data comes from all [place] treatment facilities. Appointment Date/Time Appointment Type Appointme nt Facility Name Sep 03, 2024 03:00 PM AMBULATORY [facility] MED[facility] Active, Pending, and Scheduled Orders This section includes a listing of several types of active, pending, and scheduled orders, including clinic medications orders, diagnostic test orders, procedure orders and consult orders; where the start date of the order is 45 days before the date of the Encounter or 45 days after the date of theEncounter. The data comes from all [place] treatment facilities. Test Date/Time Test Type Test Details Facility Name May 14, 2024 12:00 AM Laboratory - Chemi stry Order OCCULT BLOOD FIT X1 SCREEN (MFP ONLY) STOOL FECES SP [facility] Social History: Smoking Status (Most current) and Tobacco Use (All prior to encounter date) This section includes the most current, and the historical, smoking and tobacco- related health factors from the [place] facility where the Encounter took place. Current Smoking Status This section includes the most current smoking, or tobacco-related health factor, from the [place] facility where the Encounter took place. Date/Time Current Smoking Status Comment Luis parsons Sep 04, 2023 11:00 AM VA-TOBACCO USER EVERY DAY [facility] Tobacco Use History This section includes a history of the smoking, or tobacco-related health factors, that were collected on or before the date of the Encounter. The data comes from the [place] facility where the Encounter took place. 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 Date/Time Encounter Note(s) Provider Source Apr 23, 2024 01:58 PM PODIATRY CONSULT: [facility] TITLE: CONSULT REPORT/PODIATRY STANDARD TITLE: PODIATRY CONSULT DATE OF NOTE: APR 23, 2024@13:58 ENTRY DATE: APR 23, 2024@13:58:23 AUTHOR: ALONZO MONTIEL EXP COSIGNER: URGENCY: STATUS: COMPLETED CONSULT REPORT/PODIATRY Has ADDENDA NAME: ALEKSANDRA WADE DATE: APR 23, 2024 : Jul PCP: IGNACIO KAY LAST SEEN: INITIAL CONSULT VISIT TODAY HPI: Pt. is a 58 yo alert WDWN FEMALE who presents for initial podiatric examination with Dr. Montiel for treatment of a presenting complaint of [...] source for the followin. HTN - Hypertension ([facility] [id number]) 2. COPD - Chronic obstructive pulmonary disease [...] present physical-medical status. Protective sensation utilizing a [place] lOg monofilament is 05/10 bilateral. BIOMECHANICAL: Exam [...] of active outpatient prescriptions dispensed from this [place] (local) and dispensed from another [place] or DoD facility (remote) as well as [...] whether with a VA or non-VA provider. /sony/ ALONZO MONTIEL DPM WRECKING MECHANIC Signed: 04/23/2024 14:33 04/23/2024 ADDENDUM STATUS: COMPLETED NOTE: HAS RECEIVED BOTH COVID VACCINE DOSES AT [facility] and does not wish to have any more. /sony/ ALONZO MONTIEL DPM WRECKING MECHANIC Signed: 04/23/2024 14:34 ALONZO MONTIEL [facility]
--- OUTSIDE RECORDS SUMMARY | 2024-07-24 02:00 | XMS_ITS ---
Author Name [facility] [place] [facility] [place] [facility] [place] Address [address] [place] [id number] Care Team Providers Care Grants Analyst Name Role Phone NORMA GOMES Primary [...] Relationship to Policy Self MEDICAID MEDICAID MIGUELANGEL PEREZJulian ANAT WOODWARD Jul 24, 2016 MEDICAI D [id number] SABINE WADE PATIENT MEDICARE (WNR) MEDICARE (M) PART B Jan 22, 1996 PART B [id number] SABINE WADE PATIENT MEDICARE (WNR) MEDICARE (M) PART B Jan 22, 1996 PART B [id number] SABINE WADE PATIENT MEDICARE (WNR) MEDICARE (M) PART A Mar 24, 1995 PART A [id number] [phone] SABINE WADE PATIENT Selected Encounter This section includes the information on record at [place] for the Encounter. Date/Time Encounter Type Encounter Description Reason Pro vider Source Mar 28, 2024 09:32 AM Outpatient Encounter TELEPHONE TRIAGE IHE Encounter Template Text not used by [place] Plan of Treatment: Future Appointments (+ 6 months) and Future Tests (+/- 45 days) The Plan of Treatment section includes future care activities for the [facility] [place] [facility] This section includes future appointments and future orders which are active, pending or scheduled. Future Appointments This section includes appointments that were scheduled to occur 6 months from the date of the Encounter, up to a maximum of 20 appointments. The data comes from all [place] treatment facilities. Appointment Date/Time Appointment Type Appointme nt Facility Name Apr 23, 2024 02:00 PM [facility] Sep 03, 2024 03:00 PM AMBULATORY - MEDICINE [facility] Social History: Smoking Status (Most current) and Tobacco Use (All prior to encounter date) This section includes the most current, and the historical, smoking and tobacco- related health factors from the [place] facility where the Encounter took place. Current Smoking Status This section includes the most current smoking, or tobacco-related health factor, from the [place] facility where the Encounter took place. Date/Time Current Smoking Status Comment Facil ity May 30, 2022 02:02 PM VA-TOBACCO USER EVERY DAY [place] [facility] [place] [facility] Tobacco Use History This section includes a history of the smoking, or tobacco-related health factors, that were collected on or before the date of the Encounter. The data comes from the [place] facility where the Encounter took place. 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 [place] [facility] [place] [facility] May 30, 2022 02:02 PM VA-TOBACCO USE MED NO [place] [facility] [place] [facility] May 30, 2022 02:02 PM VA-TOBACCO USE WI 30 MIN OF WAKEUP [place] [facility] [place] [facility] May 30, 2022 02:02 PM VA-TOBACCO USER EVERY DAY [place] [facility] [place] [facility] Jun 04, 2021 11:04 AM VA-TOBACCO USE 30 YEARS OR MORE [place] [facility] [place] [facility] Jun 04, 2021 11:04 AM VA-TOBACCO USE ADVICE [place] [facility] [place] [facility] Jun 04, 2021 11:04 AM 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 Date/Time Encounter Note(s) Provider Source Mar 28, 2024 09:32 AM RN PROGRESS NOTE: LOCAL TITLE: CCC: CLINICAL TRIAGE STANDARD TITLE: RN PROGRESS NOTE DATE OF NOTE: MAR 28, 2024@09:32:48 ENTRY DATE: MAR 28, 2024@09:32:48 AUTHOR: BRANDIE GREENE COSIGNER: URGENCY: STATUS: COMPLETED Patient Demographics Patient Name: ALEKSANDRA WADE Patient Primary [address]: [address] [place] [address] Patient Primary Phone: [phone] Patient : 1965 Patient Age: 58 Caller/Recipient Relation to Patient: Self Emergency Contact: GEORGINA GRAF Triage Summary Chief Complaint: Toenail Problems System WHEN: Now Nurse's Recommendation / WHEN: Now System WHERE: Emergency department Nurse's Recommendation / WHERE: ED [place] Nursing Plan and Disposition Referred patient to higher level of care Instructed to go to Emergency Room (ER) Advised of Financial Disclaimer: Patient advised that recommendation for care provided during the call does not constitute an approval or authorization for payment by the [place] or its staff. Patient advised to report a community ED visit to the national Office of Community Care at within 72 hours. Other course(s) of action Generated msg to PACT/Provider Provided guidance for worsening symptoms: *Caller/Patient* advised to call facilities [place] Clinical Contact Center or seek immediate medical attention for new or worsening symptoms Nurse Summary Nurse Summary: Vet c/o ingrown toenails bilaterally for the past 2 months that are painful. She states that her toenails are so long she can barely walk as she cannot cut her own toenails. Redness and swelling worsening around bilateral gt toes. See [facility] below for full Review of Symptoms. Disposition: ED Now. Completely refuses as she does not feel they will help. Wants to see Podiatry lonnie. Offered Tele EC for evaluation to determine urgency and POC. Clinical Contact Center Codes Clinic/Location: V1 C[facility] PHONE CCC RN Decision Support System Output: Triage Complete Triage Date: 03/28/2024, 09:22 AM Triage Note: Decision Support Tool Used: [facility] Phone Triage Bridgette, 28 Mar 2024 13:20:36 +0000 [facility] Demographics 58 y/o Female Results CC: Toenail Problems Software suggested: Now Software suggested follow-up location: Emergency department Values and Measures Duration of CC: 2 Months Positive Responses HPI: periungual swelling, worsening, toe HPI: toe erythema, worsening HPI: toe pain, localized to toenail or periungual skin HPI: toe pain, severe VS: temperature not taken Negative Responses Denies: HPI: red streaks, from a spot on the toe Denies: HPI: skin lump, swollen, painful, over the toe Denies: HPI: toe injury, within past 2 days [place] [facility] Verbal Education Provided: Based on your responses, you need to see a provider now or your condition could worsen. IMPORTANT: This note was created by [facility] Clinical Contact Center staff. Please do not alert the staff member by adding them as a signer for future communications. Alerts are not monitored by this user. /sony/ BRANDIE GREENE [id number] Signed: 03/28/2024 09:32 Receipt Acknowledged By: 03/28/2024 10:12 /es/ JENNIFER CENTENON RN-BC REGISTERED NURSE 03/28/2024 11:15 /es/ NATALEE RUGGIERO LPN Licensed Practical Nurse BRANDIE GREENE [place] [facility]
--- OUTSIDE RECORDS SUMMARY | 2024-07-24 02:00 | XMS_ITS | Encounter Summary ---
Author Name [facility] [facility] [place] [facility] [place] Address [address] [place] [address] Care Team Providers Care Geospatial Image Analyst Name Role Phone NORMA OGMES Primary Care Provider Unavailabl e Insurance Providers: All historical and current Section Date Range: From patient's date of to the date document was created. This section includes the names of all active insurance providers for the patient. Insurance Provider Type of Coverage Plan Name Start of Policy Coverage End of Policy Coverage Group Number Member ID Insurance Provider's Telephone Number Policy Slef's Name Patient's Relationship to Policy Self MEDICAID MEDICAID MIGUELANGEL PEREZJulian ANAT WOODWARD Jul 24, 2016 MEDICAI D [id number] SABINE WADE PATIENT MEDICARE (WNR) MEDICARE (M) PART B Jan 22, 1996 PART B [id number] SABINE WADE PATIENT MEDICARE (WNR) MEDICARE (M) PART B Jan 22, 1996 PART B [id number] [phone] SABINE WADE PATIENT MEDICARE (WNR) MEDICARE (M) PART A Mar 24, 1995 PART A [id number] SABINE WADE PATIENT Selected Encounter This section includes the information on record at [place] for the Encounter. Date/Time Encounter Type Encounter Description Reason Pro vider Source Jan 16, 2024 10:57 AM Outpatient Encounter OPTOMETRY IHE Encounter Template Text not used by [place] Plan of Treatment: Future Appointments (+ 6 months) and Future Tests (+/- 45 days) The Plan of Treatment section includes future care activities for the patient from all [place] treatmentfacilities. This section includes future appointments and future orders which are active, pending or scheduled. Future Appointments This section includes appointments that were scheduled to occur 6 months from the date of the Encounter, up to a maximum of 20 appointments. The data comes from all [place] treatment facilities. Appointment Date/Time Appointment Type Appointme nt Facility Name Jan 17, 2024 10:40 AM AMBULATORY - MEDICINE [facility] Apr 23, 2024 02:00 PM AMBULATORY - MEDICINE [facility] Lab Results: +/- 30 days of the encounter This section includes the Chemistry and Hematology Lab Results on record with [place] for the patient. Radiology Reports and Pathology Reports are provided separately, in subsequent sections. Lab Results This section contains the Chemistry/Hematology Results that were resulted 30 days before or 30 daysafter the date of the Encounter. Date/Time Source Result Type Result - Unit Interpretation Reference Range Comment Jan 12, 2024 02:40 PM [facility] URINALYSIS Specimen Type: URINE Comment: If Glucose = >500 and Ketones are positive, please alert the Physician. Ordering Provider: MIKY ARITA Report Released Date/Time: Apr 27, 2023 03:37 PM Reporting Lab: [address] [phone] Performing Lab: [address] [phone] UA COLOR Yellow Yellow UA APPEARANCE Clear Clear UA GLUCOSE NEGATIVE mg/dL Negative UA KETONES TRACE mg/dL Negative UA BLOOD NEGATIVE mg/dL Negative UA PROTEIN 70 mg/dL Negative UA NITRITE NEGATIVE mg/dL Negative UA BILIRUBIN NEGATIVE mg/dL Negative UA SPECIFIC GRAVITY 1.036 H 1.016-1.022 UA pH 6.0 5.0-9.0 UA UROBILINOGEN 2.0 mg/dL <2.0 UA LEUKOCYTE TRACE Negative Jan 12, 2024 12:32 PM [facility] BASIC METABOLIC PANEL (fasting) Specime n Type: SERUM No comment entered. Ordering Provider: MIKY ARITA Report Released Date/Time: Apr 27, 2023 03:37 PM Reporting Lab: [address] [address] Performing Lab: [address] [address] UREA NITROGEN 14 mg/dL 7-25 GLUCOSE 92 mg/dL 65-100 SODIUM 140 mmol/L 135-145 POTASSIUM 4.7 mmol/L 3.5-5.0 CHLORIDE 105 mmol/L 100-110 CO2 23 meq/L 20-30 CREATININE, Serum 0.71 mg/dL 0.50-1.40 eGFR(CKD-EPI 2020) >90 mL/min >60 Jan 12, 2024 12:32 PM [facility] LIPID PANEL FASTING Specimen Type: SERUM No comment entered. Ordering Provider: MIKY ARITA Report Released Date/Time: Apr 27, 2023 03:37 PM Reporting Lab: [address] [address] Performing Lab: [address] [address] CHOLESTEROL 269 mg/dL H TRIGLYCERIDE 412 mg/dL H 0-150 LDL calculated Reflex to dLD L mg/dL 0-129 CHOL/HDL 5.2 HDL CHOLESTEROL 52 mg/dL 40-60 LDL DIRECT 167 mg/dL H Jan 12, 2024 12:32 PM [facility] LIVER FUNCTION Specimen Type: SERUM No comment entered. Ordering Provider: MIKY ARITA Report Released Date/Time: Apr 27, 2023 03:37 PM Reporting Lab: [address] [phone] Performing Lab: [address] [address] PROTEIN,TOTAL 7.2 g/dL 6.0-8.3 ALBUMIN 3.8 g/dL 3.5-5.0 ALKALINE PHOSPHATASE 99 U/L 40-150 AST 17 U/L 5-34 ALT 15 U/L BILIRUBIN, TOTAL 0.2 mg/dL 0.2-1.2 Jan 12, 2024 12:32 PM [facility] HEMOGLOBIN A1C PANEL Specimen Type: BLOOD Comment: [...] Apr 27, 2023 03:37 PM Reporting Lab: [address] [address] Performing Lab: [address] [address] HEMOGLOBIN A1C 5.8 H 4.0-5.6 Jan 12, 2024 12:32 PM [facility] TSH Specimen Type: SERUM No comment entered. Ordering Provider: MIKY ARITA Report Released Date/Time: Apr 27, 2023 03:37 PM Reporting Lab: [address] [address] Performing Lab: [address] [address] TSH 1.46 u[IU]/mL 0.35-5.00 Jan 12, 2024 12:32 PM [facility] CBC AND DIFF (AUTO) Specimen Type: BLOOD No comment entered. Ordering Provider: MIKY ARITA Report Released Date/Time: Apr 27, 2023 03:37 PM Reporting Lab: [address] [address] Performing Lab: [address] [phone] WBC 7.22 10*3/uL 4.50-11.00 RBC 4.24 10*6/uL [...] 0.0 0.0-0.0 NRBC, ABS 0.00 10*3/uL 0.00-0.00 Social History: Smoking Status (Most current) and Tobacco Use (All prior to encounter date) This section includes the most current, and the historical, smoking and tobacco- related health factors from the [place] facility where the Encounter took place. Current Smoking Status This section includes the most current smoking, or tobacco-related health factor, from the [place] facility where the Encounter took place. Date/Time Current Smoking Status Comment Facil ity May 30, 2022 02:02 PM VA-TOBACCO USER EVERY DAY [place] [facility] [place] [facility] Tobacco Use History This section includes a history of the smoking, or tobacco-related health factors, that were collected on or before the date of the Encounter. The data comes from the [place] facility where the Encounter took place. 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 [place] [facility] [place] [facility] May 30, 2022 02:02 PM VA-TOBACCO USE MED NO [place] [facility] [place] [facility] May 30, 2022 02:02 PM VA-TOBACCO USE WI 30 MIN OF WAKEUP [place] [facility] [place] [facility] May 30, 2022 02:02 PM VA-TOBACCO USER EVERY DAY [place] [facility] [place] [facility] Jun 04, 2021 11:04 AM VA-TOBACCO USE 30 YEARS OR MORE [place] [facility] [place] [facility] Jun 04, 2021 11:04 AM VA-TOBACCO USE ADVICE [place] [facility] [place] [facility] Jun 04, 2021 11:04 AM 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 Date/Time Encounter Note(s) Provider Source Jan 16, 2024 10:57 AM ADMINISTRATIVE NOTE: LOCAL TITLE: ADMINISTRATIVE NOTE STANDARD TITLE: ADMINISTRATIVE NOTE DATE OF NOTE: JAN 16, 2024@10:57 ENTRY DATE: JAN 16, 2024@10:57:47 AUTHOR: TORRI MALLOY EXP COSIGNER: URGENCY: STATUS: COMPLETED ADMINISTRATIVE NOTE Has ADDENDA Patient is seen in [x] HIM [] SPOP[facility] [] [facility] [] [facility] leaving message on [facility] Call Center voicemail wanting to: [] Speak to provider (name): Concern: [] Schedule a new appointment/ reschedule missed appt.: [] Cancelling an existing appt. [] Other: Clinic: ([facility]) [x] Optometry fitting Vet leaving 2 messages 1st message stating she would like confirmation of current appt. 2nd message calling in to see if earlier appt. same day might be available which would work better given her transportation situation Vet [x] would like [] does not need [] did not specify if they wanted a call back regarding this matter. Call back phone number left on confirmed same as phone contact on file: /sony/ ZENAIDA BALES PHYSICAL THERAPIST Signed: 01/16/2024 11:00 Receipt Acknowledged By: 01/16/2024 11:04 /sony/ MIKA BUSH [employer] ADMINISTRATOR 01/16/2024 11:03 /sony/ JUNE LOPEZ [employer] ADMINISTRATOR 01/16/2024 ADDENDUM STATUS: COMPLETED Called and spoke with pt who states that she got somebody to give her a ride and that she would like to be seen sooner that 12:40. Pt was accommodated and moved to 10:40 as the only early slot available at the time of this call. /sony/ JUNE LOPEZ [employer] ADMINISTRATOR Signed: 01/16/2024 11:11 TORRI MALLOY [place] [facility]
--- OUTSIDE RECORDS SUMMARY | 2024-07-24 02:00 | XMS_ITS | Encounter Summary ---
Author Name [facility] Organization [facility] [place] Address [address] [place] [id number] Care Team Providers Care Freight Solicitor Name Role Phone NORMA GOMES Primary Care Provider [facility] Insurance Providers: All historical and [...] PEREZKARINE WOODWARD Jul 24, 2016 MEDICAI D [id number] SABINE WADE PATIENT MEDICARE (WNR) MEDICARE (M) PART B Jan 22, 1996 PART B [id number] SABINE WADE PATIENT MEDICARE (WNR) MEDICARE (M) PART B Jan 22, 1996 PART B [id number] SABINE WADE PATIENT MEDICARE (WNR) MEDICARE (M) PART A Mar 24, 1995 PART A [id number] SABINE WADE PATIENT Selected Encounter This section includes the information on record at [place] for the Encounter. Date/Time Encounter Type Encounter Description Reason Provider Source Jan 12, 2024 03:00 PM OFFICE O/P EST MOD 30 MIN PRIMARY CARE/MEDICINE ICD-10-CM I10 Essential (primary) hypertension IGNACIO KAY [facility] Encounter Template Text not used by [place] Assessments - Encounter Diagnoses This section includes the primary and secondary diagnoses documented for the Encounter. Date/Time Primary/Secondary Diagnosis Diagnosis Name Provider Source Jan 12, 2024 03:32 PM PRIMARY Essential (primary) hypertension IGNACIO KAY [facility] Jan 12, 2024 03:32 PM SECONDARY Chronic obstructive pulmonary disease, unspecified IGNACIO KAY [place] Jan 12, 2024 03:32 PM SECONDARY Tobacco use IGNACIO KAY [place] Plan of Treatment: Future Appointments (+ 6 months) and Future Tests (+/- 45 days) The Plan of Treatment section includes future care activities for the patient from all [place] [facility]. This section includes future appointments and future orders which are active, pending or scheduled. Future Appointments This section includes appointments that were scheduled to occur 6 months from the date of the Encounter, up to a maximum of 20 appointments. The data comes from all [place] treatment facilities. Appointment Date/Time Appointment Type Appointme nt Facility Name Jan 15, 2024 11:00 AM AMBULATORY - [facility] Jan 17, 2024 10:40 AM AMBULATORY - [facility] Apr 23, 2024 02:00 PM AMBULATORY - MEDICINE [facility] Lab Results: +/- 30 days of the encounter This section includes the Chemistry and Hematology Lab Results on record with [place] for the patient. Radiology Reports and Pathology Reports are provided separately, in subsequent sections. Lab Results This section contains the Chemistry/Hematology Results that were resulted 30 days before or 30 daysafter the date of the Encounter. Date/Time Source Result Type Result - Unit Interpretation Reference Range Comment Jan 12, 2024 02:40 PM [facility] [place] URINALYSIS Specimen Type: URINE Comment: If Glucose = >500 and Ketones are positive, please alert the Physician. Ordering Provider: MIKY ARITA Report Released Date/Time: Apr 27, 2023 03:37 PM Reporting Lab: [address] [address] Performing Lab: [address] [address] UA COLOR Yellow Yellow UA APPEARANCE Clear Clear UA GLUCOSE NEGATIVE mg/dL Negative UA KETONES TRACE mg/dL Negative UA BLOOD NEGATIVE mg/dL Negative UA PROTEIN 70 mg/dL Negative UA NITRITE NEGATIVE mg/dL Negative UA BILIRUBIN NEGATIVE mg/dL Negative UA SPECIFIC GRAVITY 1.036 H 1.016-1.022 UA pH 6.0 5.0-9.0 UA UROBILINOGEN 2.0 mg/dL <2.0 UA LEUKOCYTE TRACE Negative Jan 12, 2024 12:32 PM [place] BASIC METABOLIC PANEL (fasting) Specime n Type: SERUM No comment entered. Ordering Provider: MIKY ARITA Report Released Date/Time: Apr 27, 2023 03:37 PM Reporting Lab: [address] [address] Performing Lab: [address] [address] UREA NITROGEN 14 mg/dL 7-25 GLUCOSE 92 mg/dL 65-100 SODIUM 140 mmol/L 135-145 POTASSIUM 4.7 mmol/L 3.5-5.0 CHLORIDE 105 mmol/L 100-110 CO2 23 meq/L 20-30 CREATININE, Serum 0.71 mg/dL 0.50-1.40 eGFR(CKD-EPI 2020) >90 mL/min >60 Jan 12, 2024 12:32 PM [facility] LIPID PANEL FASTING Specimen Type: SERUM No comment entered. Ordering Provider: MIKY ARITA Report Released Date/Time: Apr 27, 2023 03:37 PM Reporting Lab: [address] [address] Performing Lab: [address] [address] CHOLESTEROL 269 mg/dL H TRIGLYCERIDE 412 mg/dL H 0-150 LDL calculated Reflex to dLD L mg/dL 0-129 CHOL/HDL 5.2 HDL CHOLESTEROL 52 mg/dL 40-60 LDL DIRECT 167 mg/dL H Jan 12, 2024 12:32 PM [facility] LIVER FUNCTION Specimen Type: SERUM No comment entered. Ordering Provider: MIKY ARITA Report Released Date/Time: Apr 27, 2023 03:37 PM Reporting Lab: [address] [address] Performing Lab: [address] [address] PROTEIN,TOTAL 7.2 g/dL 6.0-8.3 ALBUMIN 3.8 g/dL 3.5-5.0 ALKALINE PHOSPHATASE 99 U/L 40-150 AST 17 U/L 5-34 ALT 15 U/L BILIRUBIN, TOTAL 0.2 mg/dL 0.2-1.2 Jan 12, 2024 12:32 PM [facility] HEMOGLOBIN A1C PANEL Specimen Type: BLOOD Comment: [...] Apr 27, 2023 03:37 PM Reporting Lab: [address] [address] Performing Lab: [address] [address] HEMOGLOBIN A1C 5.8 H 4.0-5.6 Jan 12, 2024 12:32 PM [place] CBC AND DIFF (AUTO) Specimen Type: BLOOD No comment entered. Ordering Provider: MIKY ARITA Report Released Date/Time: Apr 27, 2023 03:37 PM Reporting Lab: [address] [address] Performing Lab: [address] [address] WBC 7.22 10*3/uL 4.50-11.00 RBC 4.24 10*6/uL [...] 10*3/uL 0.00-0.00 Jan 12, 2024 12:32 PM [place] TSH Specimen Type: SERUM No comment entered. Ordering Provider: MIKY ARITA Report Released Date/Time: Apr 27, 2023 03:37 PM Reporting Lab: [address] [address] Performing Lab: [address] [address] TSH 1.46 u[IU]/mL 0.35-5.00 Vital Signs: All taken on the encounter date This section contains inpatient and outpatient Vital Signs collected on the date of the Encounter. Date/Time Temperature Pulse Blood Pressure Respiratory Rate SP02 Pain Height Weight Body Mass Index Source Jan 12, 2024 03:03 PM 97 133/90 92 [place] Social History: Smoking Status (Most current) and [...] 2023 11:00 AM VA-TOBACCO USER EVERY DAY [facility] Tobacco Use History This section includes a history of the smoking, or tobacco-related health factors, that were collected on or before the date of the Encounter. The data comes from the [place] facility where the Encounter took place. 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 Date/Time Encounter Note(s) Provider Source Jan 12, 2024 03:04 PM PREVENTIVE MEDICIN E NURSING NOTE: LOCAL TITLE: CLINICAL REMINDERS/NURSING STANDARD TITLE: PREVENTIVE MEDICINE NURSING NOTE DATE OF NOTE: JAN 12, 2024@15:04 ENTRY DATE: JAN 12, 2024@15:04:30 AUTHOR: NATALEE RUGGIEROIGNER: URGENCY: STATUS: COMPLETED Advance Directive Screen MH AD: Patient does not have a completed advance directive on file at any facility, [place] or outside. S/he is not interested in completing one at this time. The patient received education about Advance Directives and written notification of his/her rights. Homelessness/Food Insecurity Screen: In the past 2 months, have you been living in stable housing that you own, rent, or stay in as part of a household? Yes - Living in stable housing. Are you worried or concerned that in the next 2 months you may NOT have stable housing that you own, rent, or stay in as part of a household? No - Not worried about housing near future The reports the following: Within the past 12 months, you worried whether your food would run out before you got money to buy more. Never true Within the past 12 months, the food you bought just didn't last and you didn't have money to get more. Never true Pneumococcal Conjugate Vaccine (PCV15/PCV20): Refuses PCV vaccine Immunization: PNEUMOCOCCAL CONJUGATE, UNSPECIFIED FORMULATION Refusal Reason: PATIENT DECISION Patient refuses all immunization(s) in the PneumoPCV group Date Documented: 01/12/24 15:04 Influenza Immunization: No influenza vaccination was received during the recent influenza season. Td / Tdap Immunization: The patient declines to receive the recommended dose of Td/Tdap vaccine. Immunization: TD(ADULT) UNSPECIFIED FORMULATION Refusal Reason: PATIENT DECISION Patient refuses all immunization(s) in the Td group Date Documented: 01/12/24 15:05 COVID-19 Immunization: Refused Moderna Monovalent COVID-19 vaccine Immunization: COVID-19 (MODERNA), MRNA, LNP-S, PF, 50 MCG/0.5 ML (AGES 12+ YEARS) Refusal Reason: PATIENT DECISION Patient refuses all immunization(s) in the COVID-19 group Date Documented: 01/12/24 15:05 Herpes Zoster (Shingles) Vaccine: The patient declines to receive the recommended dose of zoster (shingles) vaccine. Immunization: ZOSTER RECOMBINANT Refusal Reason: PATIENT DECISION Patient refuses all immunization(s) in the ZOSTER group Date Documented: 01/12/24 15:05 Sexual Orientation: The patient thinks of their sexual orientation as: Straight or Heterosexual RHS Screen: RHS Screen Environmental Check Upon inquiry, the individual reports that the environment is safe to proceed. Informed Consent to Screen and Document The individual consents to proceed with screening. The individual consents to documentation of responses. PRIMARY SCREEN: In the past 12 months, how often did a current or former intimate partner (e.g., boyfriend, girlfriend, , , sexual partner): 1. Scream or curse at you Never 2. Insult or talk down to you Never 3. Threaten you with harm Never 4. Physically hurt you Never 5. Force or pressure you to have sexual contact against your will, or when you were unable to say no Never ?? The HITS tool (items 1-4 above) is [place] copyright protected by Herbert Mcconnell MD, and the user has full rights to use it throughout the [place] system. PRIMARY SCREEN RESULT: The Primary Screen is NEGATIVE. The individual answered never to all forms of IPV above (i.e., answered never to all 5 items) The individual accepts education and/or resources: No EDUCATION: The individual indicated readiness to learn. Education offered during this session as noted above. The individual indicated understanding by asking relevant questions and making appropriate comments. No barriers to learning were observed or identified. /sony/ NATALEE RUGGIERO LPN Licensed Practical Nurse Signed: 01/12/2024 15:06 NATALEE RUGGIERO Jan 12, 2024 02:59 PM PHYSICIAN NOTE: LOCAL TITLE: MD NOTE STANDARD TITLE: PHYSICIAN NOTE DATE OF NOTE: JAN 12, 2024@14:59 ENTRY DATE: JAN 12, 2024@14:59:21 AUTHOR: IGNACIO KAY EXP COSIGNER: URGENCY: STATUS: COMPLETED HISTORY OF PRESENT ILLNESS: first time seen , transferred from Dr Arita ALEKSANDRA WADE, is a 58 yo FEMALE , who presents at the [facility] to meet the new PCP. f/u with [facility] outside [facility] Active problems - Computerized Problem List is the source for the followin-essential hypertension 2-COPD 3-current smoker -comanaged The following VA and Non-VA meds were reconciled with patient: Active Outpatient Medications (including Supplies): Start Date Active Non-VA Medications Refills Expiration 1) Non-VA CHLORTHALIDONE TAB Sig: BY ACTIVE MOUTH 2) Non-VA DIVALPROEX 500MG 24HR (ER) SA TAB ACTIVE SiMG BY MOUTH AT BEDTIME 3) Non-VA FLUTICASONE/SALMETEROL(ADVAIR ACTIVE HFA)*PA-F* INHL,ORAL Si/50 2PUFFS BY MOUTH TWICE DAILY 4) Non-VA GABAPENTIN 300MG CAP SiMG ACTIVE BY MOUTH THREE TIMES A DAY 5) Non-VA NALTREXONE (EQV-REVIA) 50MG TAB ACTIVE SiMG BY MOUTH ONCE DAILY 6) Non-VA OTHER CAP/TAB Sig: LIDOCAINE ACTIVE PATCH OTC BY MOUTH NEEDED 7) Non-VA QUETIAPINE FUMARATE 300MG TAB ACTIVE SiMG BY MOUTH THREE TIMES A DAY 8) Non-VA QUETIAPINE FUMARATE 50MG TAB ACTIVE SiMG BY MOUTH THREE TIMES A DAY AND 400MG BY MOUTH AT BEDTIME ALLERGIES: ========= Patient has answered [facility] LAB HISTORY: done fasting today HISTORY: PERIOD OF SERVICE - [facility] [employer] FROM Jul TO Feb COMBAT SERVICE INDICATED: No REVIEW OF SYSTEMS: No fever, chills No chest pain, shortness of breath at rest; mild sob with exertion No cough or wheezing No abdominal pain nausea or vomiting chonic left hip , right shoulder on & off No headaches or dizziness PHYSICAL EXAMINATION: WD/overweight seems to be in NAD S1-S2 positive, RRR CONSTANTINO, CTA bilateral Abdomen soft nontender to palpation No edema lower extremities AAO x3; ambulates with rolling walker ASSESSMENT/PLAN: 1-essential hypertension- BP controlled today in office; she states does not check her BP home she admits of not watching her diet or exercise cont meds prescribed by her non VA PCP 2-COPD- with no signs of exacerbation; cont meds 3-current smoker- 13 cigarretes a day; she states is not ready to quit at this time; -comanaged FOLLOW UP: ========= RTC - 1 year for annual , comanaged or earlier if any medical issues Today's documentation was made using voice recognition software. This note may contain spelling/grammatical errors secondary to this software. Every effort is made to correct errors, but if mistakes are found they need to be taken in context. UPCOMING APPOINTMENTS: 01/12/2024 15:00 CWM/SO/PACT [facility] 01/15/2024 11:00 CWM/NO/OPT/FITTINGS No barriers; Patient understands and agrees to current treatment plan. If pt has any questions, concerns, or changes in current health status he/she will call or come in to the [facility]. Medication Reconciliation: Outpatient: Has the patient been taking medications as documented in the EMLR? YES: The patient has been taking medications as documented in the EMLR. Essential Medication List for Review used to complete this medication reconciliation. INCLUDED IN THIS LIST: Alphabetical list of active outpatient prescriptions dispensed from this [place] (local) and dispensed from another [place] or [facility] facility (remote) as well as [...] list may not be complete. Please check JLV. Allergies/ADRs (Tool #5) FACILITY ALLERGY/ADR -------- No Remote Allergy/ADR Data available for this patient [place] [facility] [place] [facility] No Known Allergies Med Recon NoGlossary (Tool #1) INCLUDED IN THIS LIST: Alphabetical list of active outpatient prescriptions dispensed from this [place] (local) and dispensed from another [place] or [facility] facility (remote) as well as inpatient orders (local pending and active), local clinic medications, locally documented non-VA medications, and local prescriptions that have or been discontinued in the past 90 days. Non-VA Meds Last Documented On: Apr 27, 2023 NOTE The display of VA prescriptions dispensed from another VA or [facility] facility (remote) is limited to active outpatient prescription entries matched to National Drug File at the originating site and may not include some items such as investigational drugs, compounds, etc. NOT INCLUDED IN THIS LIST: Medications self-entered by the patient into personal health records (i.e. [employer]) are NOT included in this list. Non-VA medications documented outside this [place], remote inpatient orders (regardless of status) and remote clinic medications are NOT included in this list. The patient and provider must always discuss medications the patient is taking, regardless of where the medication was dispensed or obtained. Non-VA CHLORTHALIDONE TAB TAKE BY MOUTH ONCE DAILY Non-VA DIVALPROEX 500MG 24HR (ER) SA TAB TAKE THREE TABLETS BY MOUTH AT BEDTIME Non-VA FLUTICASONE/SALMETEROL(ADVAIR HFA)*PA-F* INHL,ORAL INHALE 250/50 2PUFFS BY MOUTH [...] TABLETS BY MOUTH AT BEDTIME SUPPLIES /sony/ IGNACIO KAY MD PRIMARY CARE PHYSICIAN Signed: 01/12/2024 15:33 IGNACIO KAY [facility]
--- OUTSIDE RECORDS SUMMARY | 2024-07-24 02:00 | XMS_ITS ---
Author Name [facility] [place] Address [address] [place] [address] Care Team Providers Care De Icer Installer Name Role Phone NORMA GOMES Primary Care [...] AKIKO WOODWARD Jul 24, 2016 MEDICAI D [id number] SABINE WADE PATIENT MEDICARE (WNR) MEDICARE (M) PART B Jan 22, 1996 PART B [id number] SABINE WADE PATIENT MEDICARE (WNR) MEDICARE (M) PART B Jan 22, 1996 PART B [id number] SABINE WADE PATIENT MEDICARE (WNR) MEDICARE (M) PART A Mar 24, 1995 PART A [id number] SABINE WADE PATIENT Selected Encounter This section includes the information on record at [place] for the Encounter. Date/Time Encounter Type Encounter Description Reason Provider Source Jan 17, 2024 10:40 AM FIT SPECTACLES MONOFOCAL OPTOMETRY ICD-10-CM Z46.0 Encounter for fit/adjst of spectacles and contact lenses СЕРГЕЙ NGUYEN [facility] Encounter Template Text not used by [place] Assessments - Encounter Diagnoses This section includes the primary and secondary diagnoses documented for the Encounter. Date/Time Primary/Secondary Diagnosis Diagnosis Name Provider Source Jan 17, 2024 10:56 AM PRIMARY Encounter for fit/adjst of spectacles and contact lenses СЕРГЕЙ NGUYEN [facility] Plan of Treatment: Future Appointments (+ 6 months) and Future Tests (+/- 45 days) The Plan of Treatment section includes future care activities for the patient from all [place] treatmentfacilities. This section includes future appointments and future orders which are active, pending or scheduled. Future Appointments This section includes appointments that were scheduled to occur 6 months from the date of the Encounter, up to a maximum of 20 appointments. The data comes from all [place] treatment facilities. Appointment Date/Time Appointment Type Appointme nt Facility Name Apr 23, 2024 02:00 PM AMBULATORY - MEDICINE [facility] Lab Results: +/- 30 days of the encounter This section includes the Chemistry and Hematology Lab Results on record with [place] for the patient. Radiology Reports and Pathology Reports are provided separately, in subsequent sections. Lab Results This section contains the Chemistry/Hematology Results that were resulted 30 days before or 30 daysafter the date of the Encounter. Date/Time Source Result Type Result - Unit Interpretation Reference Range Comment Jan 12, 2024 02:40 PM [facility] URINALYSIS Specimen Type: URINE Comment: If Glucose = >500 and Ketones are positive, please alert the Physician. Ordering Provider: MIKY ARITA Report Released Date/Time: Apr 27, 2023 03:37 PM Reporting Lab: [address] [address] Performing Lab: [address] [address] UA COLOR Yellow Yellow UA APPEARANCE Clear Clear UA GLUCOSE NEGATIVE mg/dL Negative UA KETONES TRACE mg/dL Negative UA BLOOD NEGATIVE mg/dL Negative UA PROTEIN 70 mg/dL Negative UA NITRITE NEGATIVE mg/dL Negative UA BILIRUBIN NEGATIVE mg/dL Negative UA SPECIFIC GRAVITY 1.036 H 1.016-1.022 UA pH 6.0 5.0-9.0 UA UROBILINOGEN 2.0 mg/dL <2.0 UA LEUKOCYTE TRACE Negative Jan 12, 2024 12:32 PM [facility] BASIC METABOLIC PANEL (fasting) Specime n Type: SERUM No comment entered. Ordering Provider: MIKY ARITA Report Released Date/Time: Apr 27, 2023 03:37 PM Reporting Lab: [address] [address] Performing Lab: [address] [address] UREA NITROGEN 14 mg/dL 7-25 GLUCOSE 92 mg/dL 65-100 SODIUM 140 mmol/L 135-145 POTASSIUM 4.7 mmol/L 3.5-5.0 CHLORIDE 105 mmol/L 100-110 CO2 23 meq/L 20-30 CREATININE, Serum 0.71 mg/dL 0.50-1.40 eGFR(CKD-EPI 2020) >90 mL/min >60 Jan 12, 2024 12:32 PM [facility] LIPID PANEL FASTING Specimen Type: SERUM No comment entered. Ordering Provider: MIKY ARITA Report Released Date/Time: Apr 27, 2023 03:37 PM Reporting Lab: [address] [address] Performing Lab: [address] [address] CHOLESTEROL 269 mg/dL H TRIGLYCERIDE 412 mg/dL H 0-150 LDL calculated Reflex to dLD L mg/dL 0-129 CHOL/HDL 5.2 HDL CHOLESTEROL 52 mg/dL 40-60 LDL DIRECT 167 mg/dL H Jan 12, 2024 12:32 PM [facility] LIVER FUNCTION Specimen Type: SERUM No comment entered. Ordering Provider: MIKY ARITA Report Released Date/Time: Apr 27, 2023 03:37 PM Reporting Lab: [address] [address] Performing Lab: [address] [address] PROTEIN,TOTAL 7.2 g/dL 6.0-8.3 ALBUMIN 3.8 g/dL 3.5-5.0 ALKALINE PHOSPHATASE 99 U/L 40-150 AST 17 U/L 5-34 ALT 15 U/L BILIRUBIN, TOTAL 0.2 mg/dL 0.2-1.2 Jan 12, 2024 12:32 PM [facility] HEMOGLOBIN A1C PANEL Specimen Type: BLOOD Comment: [...] Apr 27, 2023 03:37 PM Reporting Lab: [address] [address] Performing Lab: [address] [address] HEMOGLOBIN A1C 5.8 H 4.0-5.6 Jan 12, 2024 12:32 PM [facility] CBC AND DIFF (AUTO) Specimen Type: BLOOD No comment entered. Ordering Provider: MIKY ARITA Report Released Date/Time: Apr 27, 2023 03:37 PM Reporting Lab: [address] [address] Performing Lab: [address] [address] WBC 7.22 10*3/uL 4.50-11.00 RBC 4.24 10*6/uL [...] 10*3/uL 0.00-0.00 Jan 12, 2024 12:32 PM [facility] TSH Specimen Type: SERUM No comment entered. Ordering Provider: MIKY ARITA Report Released Date/Time: Apr 27, 2023 03:37 PM Reporting Lab: [address] [address] [facility] [address] TSH 1.46 u[IU]/mL 0.35-5.00 Social History: Smoking Status (Most current) and Tobacco Use (All prior to encounter date) This section includes the most current, and the historical, smoking and tobacco- related health factors from the [place] facility where the Encounter took place. Current Smoking Status This section includes the most current smoking, or tobacco-related health factor, from the [place] facility where the Encounter took place. Date/Time Current Smoking Status Comment Luis ity May 30, 2022 02:02 PM VA-TOBACCO USE [place] 30 MIN OF WAKEUP [facility] Tobacco Use History This section includes a history of the smoking, or tobacco-related health factors, that were collected on or before the date of the Encounter. The data comes from the [place] facility where the Encounter took place. Date/Time Smoking Status/Tobacco Use Comment F acility May 30, 2022 02:02 PM [facility] May 30, 2022 02:02 PM VA-TOBACCO USE ARTIST WOODBLOCK NO [facility] May 30, 2022 02:02 PM VA-TOBACCO USE MED NO [place] [facility] [place] [facility] May 30, 2022 02:02 PM VA-TOBACCO USE [place] 30 MIN OF WAKEUP [facility] [place] [facility] May 30, 2022 02:02 PM VA-TOBACCO USER EVERY DAY [facility] [facility] Jun 04, 2021 11:04 AM VA-TOBACCO USE 30 YEARS OR MORE [facility] [facility] Jun 04, 2021 11:04 AM VA-TOBACCO USE ADVICE [facility] [facility] Jun 04, 2021 11:04 AM VA-TOBACCO USE ARTIST WOODBLOCK NO [facility] [place] [facility] Jun 04, 2021 11:04 AM VA-TOBACCO USE MED NO [facility] [place] [facility] Jun 04, 2021 11:04 AM VA-TOBACCO USE WI 30 MIN OF WAKEUP [facility] [facility] Jun 04, 2021 11:04 AM VA-TOBACCO USER EVERY DAY [place] [facility] [place] [facility] Encounter Notes: All associated encounter notes This section contains the clinical notes associated to the Encounter. Date/Time Encounter Note(s) Provider Source Jan 17, 2024 10:58 AM ADDENDUM: LOCAL TITLE: Addendum STANDARD TITLE: ADDENDUM DATE OF NOTE: JAN 17, 2024@10:58:34 ENTRY DATE: JAN 17, 2024@10:58:35 AUTHOR: JSOIAH ALEXANDER EXP COSIGNER: URGENCY: STATUS: COMPLETED approve /sony/ JOSIAH ALEXANDER OD CHARGE MASTER COORDINATOR Signed: 01/17/2024 10:58 Receipt Acknowledged By: 01/17/2024 14:48 /sony/ [facility] TECHINICIAN ====== --- Original Document --- 01/17/24 OPTOMETRY NOTE: Patient came in today stating that she was not able to stay to see ship boss as there was 3 other vet in front of her waiting, she was with her sister in law and her 3 year old daughter and could not see them waiting any longer they waited long enough so she was told to schedule an appt. Patient came in today to choose a new frame for sunglasses, I asked if she received her sunglasses that were ordered on Dec 27 2023, she informed me of the information above. Will forward to provider as patient was expecting to choose new frames and was ordered duplicate frames for her sunglasses that she did not want she wanted bigger and different. Patient chose MODERN [employer] Fade 56-16-145 Is this ok to order 1-time d/t patient scheduling an appt as that what she was told to choose a new frame d/t wait time?? /sony/ СЕРГЕЙ [facility]ONLON [facility] HOSPITALINICIAN Signed: 01/17/2024 10:56 Receipt Acknowledged By: 01/17/2024 10:58 /es/ JOSIAH ALEXANDER OD CHARGE MASTER COORDINATOR for JOSIAH NAIR [place] [facility] Jan 17, 2024 10:50 AM OPTOMETRY NOTE: LOCAL TITLE: OPTOMETRY NOTE STANDARD TITLE: OPTOMETRY NOTE DATE OF NOTE: JAN 17, 2024@10:50 ENTRY DATE: JAN 17, 2024@10:50:25 AUTHOR: СЕРГЕЙ NGUYEN EXP COSIGNER: URGENCY: STATUS: COMPLETED OPTOMETRY NOTE Has ADDENDA Patient came in today stating that she was not able to stay to see ship boss as there was 3 other vet in front of her waiting, she was with her sister in law and her 3 year old daughter and could not see them waiting any longer they waited long enough so she was told to schedule an appt. Patient came in today to choose a new frame for sunglasses, I asked if she received her sunglasses that were ordered on Dec 27 2023, she informed me of the information above. Will forward to provider as patient was expecting to choose new frames and was ordered duplicate frames for her sunglasses that she did not want she wanted bigger and different. Patient chose [employer] 56-16-145 Is this ok to order 1-time d/t patient scheduling an appt as that what she was told to choose a new frame d/t wait time?? /sony/ СЕРГЕЙ NGUYEN [facility] Signed: 01/17/2024 10:56 Receipt Acknowledged By: 01/17/2024 10:58 /es/ JOSIAH ALEXANDER OD CHARGE MASTER COORDINATOR for AP [facility] 01/17/2024 ADDENDUM STATUS: COMPLETED approve /es/ JOSIAH ALEXANDER OD CHARGE MASTER COORDINATOR Signed: 01/17/2024 10:58 Receipt Acknowledged By: * AWAITING SIGNATURE * СЕРГЕЙ NGUYEN ALISHA ANN [place] [facility]
--- OUTSIDE RECORDS SUMMARY | 2024-07-24 02:00 | XMS_ITS | Encounter Summary ---
Author Name [facility] [place] [facility] [place] Organization [place] Address [address] [place] [address] Care Team Providers Care Bus Mechanic Name Role Phone NORMA GOMES Primary [...] ANAT WOODWARD Jul 24, 2016 MEDICAI D [id number] SABINE WADE PATIENT MEDICARE (WNR) MEDICARE (M) PART B Jan 22, 1996 PART B [id number] SABINE WADE PATIENT MEDICARE (WNR) MEDICARE (M) PART B Jan 22, 1996 PART B [id number] SABINE WADE PATIENT MEDICARE (WNR) MEDICARE (M) PART A Mar 24, 1995 PART A [id number] SABINE WADE PATIENT Selected Encounter This section includes the information on record at [place] for the Encounter. Date/Time Encounter Type Encounter Description Reason Pro vider Source Apr 03, 2024 02:50 PM Outpatient Encounter PODIATRY IHE Encounter Template Text not used by [place] Plan of Treatment: Future Appointments (+ 6 months) and Future Tests (+/- 45 days) The Plan of Treatment section includes future care activities for the patient [facility] [place] [facility] This section includes future appointments and future orders which are active, pending or scheduled. Future Appointments This section includes appointments that were scheduled to occur 6 months from the date of the Encounter, up to a maximum of 20 appointments. The data comes from all [place] treatment facilities. Appointment Date/Time Appointment Type Appointme nt Facility Name Apr 23, 2024 02:00 PM AMBULATORY - MEDICINE [facility] Sep 03, 2024 03:00 PM [facility]ULATORY - MEDICINE [facility] Active, Pending, and Scheduled Orders This section includes a listing of several types of active, pending, and scheduled orders, including clinic medications orders, diagnostic test orders, procedure orders and consult orders; where the start date of the order is 45 days before the date of the Encounter or 45 days after the date of theEncounter. The data comes from all [facility] [place] facilities. Test Date/Time Test Type Test Details Facility Name May 14, 2024 12:00 AM Laboratory - [facility] Order OCCULT BLOOD FIT X1 SCREEN (MFP ONLY) STOOL FECES [facility] Social History: Smoking Status (Most current) and Tobacco Use (All prior to encounter date) This section includes the most current, and the historical, smoking and tobacco- related health factors from the [place] facility where the Encounter took place. Current Smoking Status This section includes the most current smoking, or tobacco-related health factor, from the [place] facility where the Encounter took place. Date/Time Current Smoking Status Comment Facil ity May 30, 2022 02:02 PM VA-TOBACCO USER EVERY DAY [facility] Tobacco Use History This section includes a history of the smoking, or tobacco-related health factors, that were collected on or before the date of the Encounter. The data comes from the [place] facility where the Encounter took place. Date/Time Smoking Status/Tobacco Use Comment F acility May 30, 2022 02:02 PM VA-TOBACCO USE ADVICE [place] [facility] May 30, 2022 02:02 PM VA-TOBACCO USE PALLET STONE POSITIONER NO [facility] May 30, 2022 02:02 PM VA-TOBACCO USE MED NO [place] [facility] [place] [facility] May 30, 2022 02:02 PM VA-TOBACCO USE [place] 30 MIN OF WAKEUP [place] [facility] [place] [place] [facility] May 30, 2022 02:02 PM VA-TOBACCO USER EVERY DAY [place] [facility] [place] [facility] Jun 04, 2021 11:04 AM VA-TOBACCO USE 30 YEARS OR MORE [place] [facility] [place] [facility] Jun 04, 2021 11:04 AM VA-TOBACCO USE ADVICE [place] [facility] [place] [facility] Jun 04, 2021 11:04 AM VA-TOBACCO USE PALLET STONE POSITIONER NO [facility] [place] [facility] Jun 04, 2021 11:04 AM VA-TOBACCO USE MED NO [place] [facility] [place] [facility] Jun 04, 2021 11:04 AM VA-TOBACCO USE WI 30 MIN OF WAKEUP [place] [facility] [place] [facility] Jun 04, 2021 11:04 AM VA-TOBACCO USER EVERY DAY [place] [facility] Encounter Notes: All associated encounter notes This section contains the clinical notes associated to the Encounter. Date/Time Encounter Note(s) Provider Source Apr 03, 2024 02:50 PM LETTERS: LOCAL TITLE: PATIENT LETTER (B) STANDARD TITLE: LETTERS DATE OF NOTE: APR 03, 2024@14:50 ENTRY DATE: APR 03, 2024@14:50:39 AUTHOR: NIKKI BARROS COSIGNER: URGENCY: STATUS: COMPLETED APR 03, 2024 [address] [place] [id number] Dear ALEKSANDRA WADE We would like to assist you in scheduling a PODIATRY appointment at the [place]. We have been unable to reach you by phone. To schedule this appointment please call toll free ext [phone]. Our booking appointment hours are Monday through Monday from 8:00 am to 4:00 pm. Please leave a message if you receive voicemail and let us know a good time and telephone number where we can reach you. If we dont hear back from you within 14 days from the date of this letter we will discontinue the request. If you have already scheduled this appointment, please disregard this letter. Your health is important to us. Sincerely, [facility] [address] [facility] [address] [place] [address] [place] [address] ext. [phone] [place] [facility] [address] [facility] [address] [place] [address] [place] [address] [phone] [facility] [address] [address] [place] [address] ext. [phone] [facility] [address] [place] [address] ext. [phone] NIKKI BARROS [place] [facility]
--- OUTSIDE RECORDS SUMMARY | 2024-07-24 02:00 | XMS_ITS ---
Author Name [facility] [place] Organization [place] Address [address] [place] [address] Care Team Providers Care Cold Press Loader Name Role Phone NORMA GOMES Primary Care [...] AKIKO WOODWARD Jul 24, 2016 MEDICAI D [id number] SABINE WADE PATIENT MEDICARE (WNR) MEDICARE (M) PART B Jan 22, 1996 PART B [id number] SABINE WADE PATIENT MEDICARE (WNR) MEDICARE (M) PART B Jan 22, 1996 PART B [id number] SABINE WADE PATIENT MEDICARE (WNR) MEDICARE (M) PART A Mar 24, 1995 PART A [id number] SABINE WADE PATIENT Selected Encounter This section includes the information on record at [place] for the Encounter. Date/Time Encounter Type Encounter Description Reason Pro vider Source Jan 09, 2024 11:47 AM Outpatient Encounter PRIMARY CARE/MEDICINE I[facility] Encounter Template Text not used by [place] Plan of Treatment: Future Appointments (+ 6 months) and Future Tests (+/- 45 days) The Plan of Treatment section includes future care activities for the patient from all [place] [facility] This section includes future appointments and future orders which are active, pending or scheduled. Future Appointments This section includes appointments that were scheduled to occur 6 months from the date of the Encounter, up to a maximum of 20 appointments. The data comes from all [place] treatment facilities. Appointment Date/Time Appointment Type Appointme [...] and Hematology Lab Results on record with [place] for the patient. Radiology Reports and Pathology Reports are provided separately, in subsequent sections. Lab Results This section contains the Chemistry/Hematology Results that were resulted 30 days before or 30 daysafter the date of the Encounter. Date/Time Source Result Type Result - Unit Interpretation Reference Range Comment Jan 12, 2024 02:40 PM [place] URINALYSIS Specimen Type: URINE Comment: If Glucose = >500 and Ketones are positive, please alert the Physician. Ordering Provider: MIKY ARITA Report Released Date/Time: Apr 27, 2023 03:37 PM Reporting Lab: [address] [address] Performing Lab: [address] [address] UA COLOR Yellow Yellow UA APPEARANCE Clear Clear UA GLUCOSE NEGATIVE mg/dL Negative UA KETONES TRACE mg/dL Negative UA BLOOD NEGATIVE mg/dL Negative UA PROTEIN 70 mg/dL Negative UA NITRITE NEGATIVE mg/dL Negative UA BILIRUBIN NEGATIVE mg/dL Negative UA SPECIFIC GRAVITY 1.036 H 1.016-1.022 UA pH 6.0 5.0-9.0 UA UROBILINOGEN 2.0 mg/dL <2.0 UA LEUKOCYTE TRACE Negative Jan 12, 2024 12:32 PM [place] BASIC METABOLIC PANEL (fasting) Specime n Type: SERUM No comment entered. Ordering Provider: MIKY ARITA Report Released Date/Time: Apr 27, 2023 03:37 PM Reporting Lab: [address] [address] Performing Lab: [address] [address] UREA NITROGEN 14 mg/dL 7-25 GLUCOSE 92 mg/dL 65-100 SODIUM 140 mmol/L 135-145 POTASSIUM 4.7 mmol/L 3.5-5.0 CHLORIDE 105 mmol/L 100-110 CO2 23 meq/L 20-30 CREATININE, Serum 0.71 mg/dL 0.50-1.40 eGFR(CKD-EPI 2020) >90 mL/min >60 Jan 12, 2024 12:32 PM [place] LIPID PANEL FASTING Specimen Type: SERUM No comment entered. Ordering Provider: MIKY ARITA Report Released Date/Time: Apr 27, 2023 03:37 PM Reporting Lab: [address] [address] Performing Lab: [address] [address] CHOLESTEROL 269 mg/dL H TRIGLYCERIDE 412 mg/dL H 0-150 LDL calculated Reflex to dLD L mg/dL 0-129 CHOL/HDL 5.2 HDL CHOLESTEROL 52 mg/dL 40-60 LDL DIRECT 167 mg/dL H Jan 12, 2024 12:32 PM [place] LIVER FUNCTION Specimen Type: SERUM No comment entered. Ordering Provider: MIKY ARITA Report Released Date/Time: Apr 27, 2023 03:37 PM Reporting Lab: [address] [address] Performing Lab: [address] [address] PROTEIN,TOTAL 7.2 g/dL 6.0-8.3 ALBUMIN 3.8 g/dL 3.5-5.0 ALKALINE PHOSPHATASE 99 U/L 40-150 AST 17 U/L 5-34 ALT 15 U/L BILIRUBIN, TOTAL 0.2 mg/dL 0.2-1.2 Jan 12, 2024 12:32 PM [place] HEMOGLOBIN A1C PANEL Specimen Type: BLOOD Comment: [...] Apr 27, 2023 03:37 PM Reporting [facility] [address] [address] Performing Lab: [address] [address] HEMOGLOBIN A1C 5.8 H 4.0-5.6 Jan 12, 2024 12:32 PM [place] TSH Specimen Type: SERUM No comment entered. Ordering Provider: MIKY ARITA Report Released Date/Time: Apr 27, 2023 03:37 PM Reporting [facility]: [facility] [address] [address] Performing Lab: [facility] [address] [address] TSH 1.46 u[IU]/mL 0.35-5.00 Jan 12, 2024 12:32 PM [place] CBC AND DIFF (AUTO) Specimen Type: BLOOD No comment entered. Ordering Provider: MIKY ARITA Report Released Date/Time: Apr 27, 2023 03:37 PM Reporting [facility]: [facility] [address] [address] Performing Lab: [facility] [address] [address] WBC 7.22 10*3/uL 4.50-11.00 RBC 4.24 10*6/uL [...] 02:02 PM VA-TOBACCO USER EVERY DAY [place] [facility] Tobacco Use History This section includes a history of the smoking, or tobacco-related health factors, that were collected on or before the date of the Encounter. The data comes from the [place] facility where the Encounter took place. Date/Time Smoking Status/Tobacco Use Comment F acility May 30, 2022 02:02 PM VA-TOBACCO USE ADVICE [place] [facility] May 30, 2022 02:02 PM VA-TOBACCO USE HIM DIRECTOR NO [place] [facility] [place] [facility] May 30, 2022 02:02 PM VA-TOBACCO USE MED NO [place] [facility] [facility] May 30, 2022 02:02 PM VA-TOBACCO USE [place] 30 MIN OF WAKEUP [place] [facility] [place] [facility] May 30, 2022 02:02 PM VA-TOBACCO USER EVERY DAY [place] [facility] [place] [facility] Jun 04, 2021 11:04 AM VA-TOBACCO USE 30 YEARS OR MORE [place] [facility] [place] [facility] Jun 04, 2021 11:04 AM VA-TOBACCO USE ADVICE [place] [facility] [place] [facility] Jun 04, 2021 11:04 AM VA-TOBACCO USE HIM DIRECTOR NO [place] [facility] [place] [facility] Jun 04, 2021 11:04 AM VA-TOBACCO USE MED NO [place] [facility] [place] [facility] Jun 04, 2021 11:04 AM VA-TOBACCO USE [place] 30 MIN OF WAKEUP [place] [facility] [place] [facility] Jun 04, 2021 11:04 AM VA-TOBACCO USER EVERY DAY [place] [facility] [place] [facility] Encounter Notes: All associated encounter notes This section contains the clinical notes associated to the Encounter. Date/Time Encounter Note(s) Provider Source Jan 09, 2024 11:47 AM ADMINISTRATIVE NOT E: LOCAL TITLE: ADMINISTRATIVE NOTE STANDARD TITLE: ADMINISTRATIVE NOTE DATE OF NOTE: JAN 09, 2024@11:47 ENTRY DATE: JAN 09, 2024@11:47:29 AUTHOR: JENNIFER HANKINS COSIGNER: URGENCY: STATUS: COMPLETED THIS STATION MASTER HAD SPOKEN TO TO REMIND OF F2F APPT WITH [facility]/SO/PACT EIGHT PROVIDER ON 01/12/2024 AT 15:00 FOR BEREAVEMENT NO LABS (SO PACT 4 TRANSFER 30MINS). /sony/ MARCO A HANKINS ADVANCED GIS SOFTWARE DEVELOPER Signed: 01/09/2024 11:48 MARCO A HANKINS [place]
--- OUTSIDE RECORDS SUMMARY | 2024-07-24 02:00 | XMS_ITS ---
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 Date/Time Encounter Type Encounter Description Reason Pro vider Source May 15, 2024 08:17 AM Outpatient Encounter ADMIN PAT ACTIVTIES (MASNONCT) IHE Encounter Template Text not used by [place] Plan of Treatment: Future Appointments (+ 6 months) and Future Tests (+/- 45 days) The Plan of Treatment section includes future care activities for the patient from all [place] [facility] This section includes future appointments and future orders which are active, pending or scheduled. Future Appointments This section includes appointments that were scheduled to occur 6 months from the date of the Encounter, up to a maximum of 20 appointments. The data comes from all [facility] facilities. Appointment Date/Time Appointment Type Appointme nt Facility Name Sep 03, 2024 03:00 PM AMBULATORY - MEDICINE [facility] Active, Pending, and Scheduled Orders This section includes a listing of several types of active, pending, and scheduled orders, including clinic medications orders, diagnostic test orders, procedure orders and consult orders; where the start date of the order is 45 days before the date of the Encounter or 45 days after the date of theEncounter. The data comes from all [facility]. Test Date/Time Test Type Test Details Facility Name May 14, 2024 12:00 AM Laboratory - Chemi str Order OCCULT BLOOD FIT X1 SCREEN (MFP ONLY) STOOL FECES [facility] Social History: Smoking Status (Most current) and Tobacco Use (All prior to encounter date) This section includes the most current, and the historical, smoking and tobacco- related health factors from the [place] facility where the Encounter took place. Current Smoking Status This section includes the most current smoking, or tobacco-related health factor, from the [place] facility where the Encounter took place. Date/Time Current Smoking Status Comment Facil ity May 30, 2022 02:02 PM VA-TOBACCO USER EVERY DAY [facility] Tobacco Use History This section includes a history of the smoking, or tobacco-related health factors, that were collected on or before the date of the Encounter. The data comes from the [place] facility where the Encounter took place. 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 May 30, 2022 02:02 PM VA-TOBACCO USE MED NO [facility] [place] [facility] May 30, 2022 02:02 PM VA-TOBACCO USE WI 30 MIN OF WAKEUP [facility] [place] [facility] May 30, 2022 02:02 PM VA-TOBACCO USER EVERY DAY [facility] [place] [facility] Jun 04, 2021 11:04 AM VA-TOBACCO USE 30 YEARS OR MORE [facility] [place] [facility] Jun 04, 2021 11:04 AM VA-TOBACCO USE ADVICE [facility] [place] [facility] Jun 04, 2021 11:04 AM VA-TOBACCO USE 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 Date/Time Encounter Note(s) Provider Source May 15, 2024 08:17 AM ADMINISTRATIVE NOT E: LOCAL TITLE: CCC: SCHEDULING ADMINISTRATION STANDARD TITLE: ADMINISTRATIVE NOTE DATE OF NOTE: MAY 15, 2024@08:17:26 ENTRY DATE: MAY 15, 2024@08:17:26 AUTHOR: BULL RUFFIN COSIGNER: URGENCY: STATUS: COMPLETED CCC: SCHEDULING ADMINISTRATION Has ADDENDA Patient Demographics Patient Name: ALEKSANDRA WADE Patient Primary Phone: [phone] Patient Primary Address: [address] [place] [address] Patient : 1965 Patient Age: 58 Caller/Recipient Relation to Patient: Self Administrative Administrative Note Reason: Other Administrative Note Comments: Patient called and stated they were seen by the outside primary care provider who told them they were borderline diabetic. Patient is requesting a lab test with the [place] to check and see if they are borderline diabetic. Please assist IMPORTANT: This note was created by [facility] Clinical Contact Center staff. Please do not alert the staff member by adding them as a signer for future communications. Alerts are not monitored by this user. /sony/ [facility] Signed: 05/15/2024 08:17 Receipt Acknowledged By: 05/21/2024 12:48 /sony/ JOB CENTENO RN-BC REGISTERED NURSE 05/22/2024 10:17 /sony/ NATALEE RUGGIERO LPN Licensed Practical Nurse 05/21/2024 ADDENDUM STATUS: COMPLETED Called and advised her that previous lab results at [place] were in prediabetic range and that she should further discuss lab results ordered by non [facility] pcp when she follows up with them next week. [place] verbalized understanding and will follow up with non VA pcp as scheduled and contact PACT if need arises. /sony/ JOB CENTENO RN-BC REGISTERED NURSE Signed: 05/21/2024 12:57 BULL RUFFIN [place] [facility]
--- OUTSIDE RECORDS SUMMARY | 2024-07-24 02:00 | XMS_ITS | Patient Health Record ---
Author Organization [facility] Address [address], [place] [id number] Care Team Providers Care Travel Registered Nurse Oncology Name Role Phone [facility] Primary Car e Provider Unavailable Sarabjit Rodriguez Unavailable [phone] Reason For Referral No Information Plan Of Treatment No Information Insurance Providers Payer Name Payer Address Payer Phone Subscriber Number Group Number Insured Name Patient Relationship to Insured Coverage Start Date Coverage End Date [place] Medicare Part A [employer] [address] [facility] [address] [id number] Makayla Loya Self - patient is the insured 1
--- OUTSIDE RECORDS SUMMARY | 2024-07-24 02:00 | XMS_ITS ---
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 Date/Time Encounter Type Encounter Description Reason Provider Source Mar 28, 2024 09:36 AM RN SERVICES UP TO 15 MINUTES TELEPHONE/MEDICIN E ICD-10-CM L60.0 Ingrowing nail ROHITH PRETTY IHE Encounter Template Text not used by [place] Assessments - Encounter Diagnoses This section includes the primary and secondary diagnoses documented for the Encounter. Date/Time Primary/Secondary Diagnosis Diagnosis Name Provider Source Mar 28, 2024 09:36 AM PRIMARY Ingrowing ROHITH Rucker [facility] Plan of Treatment: Future Appointments (+ 6 months) and Future Tests (+/- 45 days) The Plan of Treatment section includes future care activities for the patient from all [place] [facility]. This section includes future appointments and future orders which are active, pending or scheduled. Future Appointments This section includes appointments that were scheduled to occur 6 months from the date of the Encounter, up to a maximum of 20 appointments. The data comes from all [place] treatment facilities. Appointment Date/Time Appointment Type Appointme nt Facility Name Apr 23, 2024 02:00 PM AMBULATORY - MEDICINE [facility] Sep 03, 2024 03:00 PM AMBULATORY - MEDICINE [facility] Social History: Smoking Status (Most current) and Tobacco Use (All prior to encounter date) This section includes the most current, and the historical, smoking and tobacco- related health factors from the [place] facility where the Encounter took place. Current Smoking Status This section includes the most current smoking, or tobacco-related health factor, from the [place] facility where the Encounter took place. Date/Time Current Smoking Status Comment Facil ity May 30, 2022 02:02 PM VA-TOBACCO USER EVERY DAY [facility] Tobacco Use History This section includes a history of the smoking, or tobacco-related health factors, that were collected on or before the date of the Encounter. The data comes from the [place] facility where the Encounter took place. 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 [place] [facility] [place] [facility] May 30, 2022 02:02 PM VA-TOBACCO USE MED NO [facility] May 30, 2022 02:02 PM VA-TOBACCO USE WI 30 MIN OF WAKEUP [place] [facility] [place] [facility] May 30, 2022 02:02 PM VA-TOBACCO USER EVERY DAY [facility] [place] [facility] Jun 04, 2021 11:04 AM VA-TOBACCO USE 30 YEARS OR MORE [facility] [place] [facility] Jun 04, 2021 11:04 AM VA-TOBACCO USE ADVICE [facility] [place] [facility] Jun 04, 2021 11:04 AM VA-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 Date/Time Encounter Note(s) Provider Source Mar 28, 2024 09:36 AM TELEHEALTH NOTE: LOCAL TITLE: TELE EMERGENCY CARE NOTE STANDARD TITLE: TELEHEALTH NOTE DATE OF NOTE: MAR 28, 2024@09:36:14 ENTRY DATE: MAR 28, 2024@09:36:14 AUTHOR: ROHITH PRETTY COSIGNER: URGENCY: STATUS: COMPLETED Case: [id number] Type of Visit: Phone Caller/Recipient Verified Patient Primary Phone: [phone] Patient Primary [address]: [address] [place] [address] Emergency Contact: GEORGINA GRAF Emergency Contact Phone: [phone] Patient Age: 58 Gender: F Chief Complaint: bilateral ingrown toenails Phone Visit Consent Obtained Telehealth Disclosure: Visit conducted by synchronous telehealth. Patient's verbal consent obtained. Confirmed Patient's Location and Phone. Subjective: pt calm and pleasant, speech clear states x2 months of nail issues, is trying to keep up with cutting nails not diabetic hasn't seen call center consultant- states she thought she might be able to handle it herself but she has COPD, uses walker, upper extremity issues, in PT Vital Signs Outcome: Transferred to Tele- Medical Provider Time Spent with [place]: 5.0 [place] Screening [place] Screening Q1: Over the past month, have you wished you were or wished you could go to sleep and not wake up? No [place] Screening Q2: Over the past month, have you actually had any thoughts about killing yourself? No [place] Screening Q3: Over the past month, have you been thinking about how you might do this? [place] Screening Q4: Over the past month, have you had these thoughts and had some intention of acting on them? [place] Screening Q5: Over the past month, have you started to work out or worked out the details of how to kill yourself? [place] Screening Q6: If yes, at any time in the past month did you intend to carry out this plan? [place] Screening Q7: In your lifetime, have you done anything, started to do anything, or prepared to do anything to end your life? No [place] Screening Q8: If yes, was this within the past 3 months? [place] Screening Result: Negative /es/ ROHITH PRETTY REGISTERED NURSE Signed: 03/28/2024 09:36 ROHITH PRETTY [facility] [facility]
--- OUTSIDE RECORDS SUMMARY | 2024-07-24 02:00 | XMS_ITS | Encounter Summary ---
Author Name [facility] [place] [facility] [place] Organization [facility] [place] Address [address] [place] [address] Care Team Providers Care Operations Boardman Name Role Phone NORMA GOMES Primary Care [...] ANAT WOODWARD Jul 24, 2016 MEDICAI D [id number] SABINE WADE PATIENT MEDICARE (WNR) MEDICARE (M) PART B Jan 22, 1996 PART B [id number] SABINE WADE PATIENT MEDICARE (WNR) MEDICARE (M) PART B Jan 22, 1996 PART B [id number] SABINE WADE PATIENT MEDICARE (WNR) MEDICARE (M) PART A Mar 24, 1995 PART A [id number] SABINE WADE PATIENT Selected Encounter This section includes the information on record at [place] for the Encounter. Date/Time Encounter Type Encounter Description Reason Provider Source Mar 28, 2024 09:45 AM Outpatient Encounter TELEPHONE/MEDICIN E ICD-10-CM L60.0 Ingrowing nail HASEEB CORTES TOMÁS Meagan IHE Encounter Template Text not used by [place] Assessments - Encounter Diagnoses This section includes the primary and secondary diagnoses documented for the Encounter. Date/Time Primary/Secondary Diagnosis Diagnosis Name Provider Source Mar 28, 2024 09:45 AM PRIMARY Ingrowing nail HASEEB CORTES TOMÁS Meagan [facility] Plan of Treatment: Future Appointments (+ 6 months) and Future Tests (+/- 45 days) The Plan of Treatment section includes future care activities for the patient from all [place] [facility]. This section includes future appointments and future orders which are active, pending or scheduled. Future Appointments This section includes appointments that were scheduled to occur 6 months from the date of the Encounter, up to a maximum of 20 appointments. The data comes from all [place] treatment facilities. Appointment Date/Time Appointment Type Appointme nt Facility Name Apr 23, 2024 02:00 PM AMBULATORY - MEDICINE [facility] Sep 03, 2024 03:00 PM AMBULATORY - MEDICINE [facility] Social History: Smoking Status (Most current) and Tobacco Use (All prior to encounter date) This section includes the most current, and the historical, smoking and tobacco- related health factors from the [place] facility where the Encounter took place. Current Smoking Status This section includes the most current smoking, or tobacco-related health factor, from the [place] facility where the Encounter took place. Date/Time Current Smoking Status Comment Facil ity May 30, 2022 02:02 PM VA-TOBACCO USER EVERY DAY [facility] Tobacco Use History This section includes a history of the smoking, or tobacco-related health factors, that were collected on or before the date of the Encounter. The data comes from the [place] facility where the Encounter took place. Date/Time Smoking Status/Tobacco Use Comment F acility May 30, 2022 02:02 PM VA-TOBACCO USE ADVICE [place] [facility] [place] [facility] May 30, 2022 02:02 PM VA-TOBACCO USE HAND SINGER NO [place] [facility] [place] [facility] May 30, 2022 02:02 PM VA-TOBACCO USE MED NO [place] [facility] [place] [facility] May 30, 2022 02:02 PM VA-TOBACCO USE WI 30 MIN OF WAKEUP [place] [facility] [place] [facility] May 30, 2022 02:02 PM VA-TOBACCO USER EVERY DAY [facility] [place] [facility] Jun 04, 2021 11:04 AM VA-TOBACCO USE 30 YEARS OR MORE [facility] [place] [facility] Jun 04, 2021 11:04 AM VA-TOBACCO USE ADVICE [facility] [place] [facility] Jun 04, 2021 11:04 AM VA-TOBACCO USE HAND SINGER NO [facility] [place] [facility] Jun 04, 2021 11:04 AM VA-TOBACCO USE MED NO [facility] [place] [facility] Jun 04, 2021 11:04 AM VA-TOBACCO USE WI 30 MIN OF WAKEUP [facility] [place] [facility] Jun 04, 2021 11:04 AM VA-TOBACCO USER EVERY DAY [place] [facility] [place] [facility] Encounter Notes: All associated encounter notes This section contains the clinical notes associated to the Encounter. Date/Time Encounter Note(s) Provider Source Mar 28, 2024 09:45 AM TELEHEALTH NOTE: LOCAL TITLE: TELE EMERGENCY CARE NOTE STANDARD TITLE: TELEHEALTH NOTE DATE OF NOTE: MAR 28, 2024@09:45:35 ENTRY DATE: MAR 28, 2024@09:45:36 AUTHOR: LUÍS CORTES COSIGNER: URGENCY: STATUS: COMPLETED Case Details Tele-Urgent Visit: This is a tele-urgent care visit to address acute/urgent issues. Definitive care on chronic medical issues will be deferred to routine Primary Care appointment/provider. Consult Origin: Clinical Contact Center Case: [id number] Progress Note Type: Virtual Visit Note Type of Visit: Phone Phone Visit Consent Obtained Telehealth Disclosure: Visit conducted by synchronous telehealth. Patient's verbal consent obtained. Confirmed Patient's Location and Phone. Subjective: ingrown toenails Objective Objective: Ingrown toenails x 2 months Reason for Referral, Impression & Assessment, Plan Reason for Referral: Other Other-Reason for Referral: podiatry Impression & Assessment: Patient reports ingrown toenails B/L great toe onset 2 months. Patient has mobility issues and cannot cut her own toenails. Patient states that the cuticles are a little red and it's hard to use my walker because my toes hurt . Patient declines ED for emergent eval by podiatry, but states she would like to see podiatry JAMES. Patient denies any purulent d/c from the sites, F/C or any other medical complaints at this time. Plan: Podiatry consult Outcome: Acute Issue Resolved Discharge Instructions Were Reviewed Pt Verbalizes Understanding of Care Plan Time Spent with [place]: 6.0 /sony/ LUÍS CORTES DNP, EXAMINATION SCORER-C DOCTOR OF NURSING PRACTICE Signed: 03/28/2024 09:45 Receipt Acknowledged By: 03/28/2024 10:26 /es/ JOB CENTENO RN-BC REGISTERED NURSE 04/10/2024 10:04 /es/ IGNACIO KAY MD PRIMARY CARE PHYSICIAN LUÍS CORTES [place] [facility]
[2024-07-24 02:21] VITALS: BP 135/85; PULSE 105; RESP 18; TEMP 36.8; O2SAT 95
[2024-07-24] MEDS: predniSONE 20 MG TABLET 40 MG PO (02:24)
[2024-07-24 02:32] VITALS: BP 135/85; PULSE 105; RESP 18; TEMP 36.8; O2SAT 95
== END 2024-07-24 02:50 | disposition home or self-care (01) ==
PROVIDERS: Emergency Provider Internal Medicine; PCP Family Medicine
DX: U07.1 COVID-19 (principal); J44.89 Other specified chronic obstructive pulmonary disease; R05.9 Cough, unspecified; R06.02 Shortness of breath
CPT/HCPCS: 0241U; 71045; 80053; 83880; 84484; 85025; 93005; 99283; 99285

== ENCOUNTER → 2024-07-24 01:11 | Outpatient (BNV) | payer MEDICARE, MEDICAID, SELFPAY | PROVIDERS: Emergency Provider Internal Medicine; PCP Family Medicine; Visit Provider Internal Medicine Cardiovascular Disease | DX: R94.31 Abnormal electrocardiogram [ECG] [EKG] (principal) | CPT/HCPCS: 93010 ==

== ENCOUNTER → 2024-07-24 01:36 | Outpatient (BNV) | payer MEDICARE, MEDICAID, SELFPAY | PROVIDERS: Emergency Provider Internal Medicine; PCP Family Medicine; Visit Provider Radiology Diagnostic Radiology | DX: R05.9 Cough, unspecified (principal) | CPT/HCPCS: 71045 ==

== ENCOUNTER 2025-01-30 15:40 | Emergency (ER) | payer MEDICARE, MEDICAID, SELFPAY ==
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
--- OUTSIDE RECORDS SUMMARY | 2025-01-29 23:59 | XMS_ITS | Continuity of Care Document ---
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 Name Role Phone Moisés FORD, Kassy Lui Primary Care Physician ( [phone] Encounter [facility] Date(s): 12/30/24 - 01/29/25 [facility] [address] [id number] Encounter Type: Triage Allergies, Adverse Reactions, Alerts [...] virus vaccine, inactivated 09/18/11 Joo rded SARS-CoV-2(COVID-19)mRNA-LNP vac([id number]) 09/07/23 Given pneumococcal 20-valent conjugate vaccine 07/22/22 Given SARS-CoV-2 mRNA ([id number]-bumco) vax 09/03/21 Given SARS-CoV-2 (COVID-19) mRNA BNT-162b2 vac 01/06/21 Recorded SARS-CoV-2 (COVID-19) mRNA BNT-162b2 vac 12/13/20 Recorded Hepatitis A-Hepatitis B Vaccine 04/20/15 Recorded Hepatitis A-Hepatitis B Vaccine 03/23/15 Recorded pneumococcal 23-valent vaccine 04/20/12 Given Medications acetaminophen 500 mg oral tablet 2 tablet = 1,000 mg, By Mouth, 3 times a day, PRN for pain, # 60 tablet, 1 Refills, Maintenance, 06/26/24 8:54:00 AM EST, Tablet, [facility] [id number], Partial fill upon patient request if the prescription is for a schedule II opioid drug., 160, cm, 05/23/24 9:46:00 EDT, Height, 76.31, kg, 04/09/24 8:27:00 EDT, Dry Weight Start Date: 06/26/24 Status: Ordered Quantity: 60.0 Unit: tablet Repeat number: 2 albuterol-ipratropium 3 mg-0.5 mg/3 ml inhalation solution See Instructions, INHALE THE CONTENT OF 1 VIAL (3mls) VIA NEBULIZER machine 4 (FOUR) TIMES DAILY ASNEEDED FOR SHORTNESS OF BREATH OR FOR WHEEZING, # 180 mL, 0 Refills, Maintenance, 07/18/24 11:37:00AM EST, [facility] [id number], INHALE THE CONTENT OF 1 VIAL (3mls) VIA NEBULIZER machine 4 (FOUR) TIMES DAILY NEEDED FOR SHORTNESS OF BREATH OR FOR WHEEZING, 160, cm, 07/18/24 10:44:00 EST, Height, 76.31, kg, 04/09/24 8:27:00 EDT, Dry Weight Start Date: 07/18/24 Status: Ordered Quantity: 180.0 Unit: mL Repeat number: 1 Anoro Ellipta 62.5 mcg-25 mcg/inh inhalation powder 1 puffs, Inhalation, Daily, # 30 each, 11 Refills, Maintenance, 08/29/24 11:34:00 AM EST, Powder, [facility] [id number], Partial fill upon patient request if the prescription is for a schedule II opioid drug., 1 puffs Inhalation Daily, 160, cm, 08/29/24 9:11:00 EST, Height, 76.31, kg, 04/09/24 8:27:00 EDT, Dry Weight Start Date: 08/29/24 Status: Ordered Quantity: 30.0 Unit: each Repeat number: 12 Benefiber oral powder for reconstitution See Instructions, 4 Gm dissolved in 4 to 8 oz of beverage- hot or cold taking by mouth daily. May inrease up to 3 times a day as needed., # 245 Gm, 2 Refills, Maintenance, 04/04/24 1:56:00 PM EDT, Joseph, [facility] [place], [place] - [id number], Partial fill upon patient request if the [...] Quantity: 245.0 Unit: g Repeat number: 3 Indications: Slow transit constipation; cetirizine 10 mg oral tablet See Instructions, TAKE 1 TABLET BY MOUTH ONCE DAILY, # 30 tablet, 5 Refills, Maintenance, 05/24/23 4:26:00 PM EDT, [facility], 160, cm, 04/06/23 11:50:00 EDT, Height, 61.36, kg, 11/09/22 8:12:00 EDT, Dry Weight Start Date: 05/24/23 Status: Ordered Quantity: 30.0 Unit: tablet Repeat number: 1 chlorthalidone 25 mg oral tablet See Instructions, TAKE 1 TABLET BY MOUTH ONCE DAILY IN THE MORNING, # 90 tablet, Refills 1, Maintenance, 01/09/25 11:20:00 AM EDT, Instructions Replace Required Details, Route to Pharmacy Electronically, [facility], 160, cm, 11/13/24 10:10:00 EDT, Height, 76.45, kg, 10/03/24 10:05:00 EDT, Dry Weight Start Date: 01/09/25 Status: Ordered Quantity: 90.0 Unit: tablet Repeat number: 1 cholestyramine 4 gm/9 gm oral powder for reconstitution See Instructions, DISSOLVE THE CONTENT OF 1 TO 2 packets IN WATER OR JUICE AND TAKE ONCE DAILY FOR DIARRHEA, # 60 pack/packet, 11 Refills, Maintenance, 11/07/24 6:46:00 PM EDT, [facility], 160, cm, 10/03/24 10:05:00 EDT, Height, 76.45, kg, 10/03/24 10:05:00 EDT, Dry Weight Start Date: 11/07/24 Status: Ordered Quantity: 60.0 Unit: pack/packet Repeat number: 1 Colace sodium 100 mg oral capsule 100 mg, 1, capsule, By Mouth, 2 times a day, PRN, # 100 capsule, Refills 4, Tot. Refills 4, Maintenance, for constipation, 04/04/24 1:58:00 PM EDT, Route to Pharmacy Electronically, [place], [place] - [id number], Partial fill upon patient request if the prescription is for a schedule II opioid drug., 160, cm, 04/04/24 13:39:00 EDT, Height, 81.81, kg, 04/02/24 15:08:00 EDT, Dry Weight Start Date: 04/04/24 Status: Ordered Quantity: 100.0 Unit: capsule Repeat number: 5 Indications: Slow transit constipation; COVID-19 Antigen Rapid Test COVID-19 Antigen Rapid Test, See Instructions, # 2 each, Refills 3, Tot. Refills 3, Maintenance, tocheck if exposed to COVID-19 or when symptomatic, 07/15/24 9:22:00 AM EST, Supply, 160, cm, 07/15/24 8:33:00 EST, Height, 76.31, kg, 04/09/24 8:27:00 EDT, Dry Weight Start Date: 07/15/24 Status: Ordered Quantity: 2.0 Unit: each Repeat number: 4 cyclobenzaprine 5 mg oral tablet 1 tablet = 5 mg, By Mouth, 3 times a day, as needed for pain, # 9 tablet, 1 Refills, Maintenance, 07/12/24 11:25:00 AM EST, Tablet, [facility], [place] - [id number], Partial fill upon patient request if the prescription is for a schedule II opioid drug., 160, cm, 05/23/24 9:46:00 EDT, Height, 76.31, kg, 04/09/24 8:27:00 EDT, Dry Weight Start Date: 07/12/24 Stop Date: 07/18/24 Status: Ordered Quantity: 9.0 Unit: tablet Repeat number: 2 dextromethorphan-guaifenesin 10 mg-100 mg/5 mL oral liquid 5 mL, By Mouth, Every 4 hours, PRN Cough, not to exceed 6 doses/day, # 240 mL, 0 Refills, Maintenance, 07/15/24 9:19:00 AM EST, Liquid, [facility] [id number], Partial fill upon patient request if the prescription is for a schedule II opioid drug., 5 mL By Mouth Every 4 hours ,PRN:Cough,Instr:not to exceed 6 doses/day, 160, cm, 07/15/24 8:33:00 EST, Height, 76.31, kg, 04/09/24 8:27:00 EDT, Dry Weight Start Date: 07/15/24 Status: Ordered Quantity: 240.0 Unit: mL Repeat number: 1 diclofenac 1% topical gel 1 applicator, Topically, 4 times a day, for shoulder pain, # 100 Gm, 1 Refills, Maintenance, 12/06/24 5:28:00 PM EDT, Gel, [facility] [id number], Partial fill upon patient request if the prescription is for a schedule II opioid drug., 160, cm, 11/13/24 10:10:00 EDT, Height, 76.45, kg, 10/03/24 10:05:00 EDT, Dry Weight Start Date: 12/06/24 Status: Ordered Quantity: 100.0 Unit: g Repeat number: 2 divalproex sodium 250 mg oral tablet, extended release Take 1 tablet by mouth every night at bedtime (per psych) Start Date: 10/03/24 Status: Ordered Repeat number: 1 divalproex sodium 500 mg oral tablet, extended release Take 2 tablet by mouth every night at bedtime (per psych) Start Date: 10/03/24 Status: Ordered Repeat number: 1 gabapentin 300 mg oral capsule 300 mg, 1, capsule, By Mouth, 3 times a day, Refills 0, Maintenance, 05/10/21 12:10:00 PM EDT, ; Start Date: 05/10/21 Status: Ordered Repeat number: 1 Gloves See Instructions, # 120 each, Refills 11, Tot. Refills 11, Maintenance, uses 4 boxes daily. N39.41,R19.8 size medium. dx N31.9 neurogenic bladder, 09/20/24 1:04:00 PM EST, Supply Start Date: 09/20/24 Status: Ordered Quantity: 120.0 Unit: each Repeat number: 12 glycerin adult rectal suppository 1 supp, Rectally, Daily, PRN for constipation, # 24 supp, 1 Refills, Maintenance, 11/21/22 11:35:00 AM EDT, Suppository, [facility] [id number], Partial fill upon patient request if the prescription is for a schedule II opioid drug., 160, cm, 11/21/22 9:37:00 EDT, Height, 61.36, kg, 11/09/22 8:12:00 EDT, Dry Weight Start Date: 11/21/22 Status: Ordered Quantity: 24.0 Unit: supp Repeat number: 2 Golytely - oral powder for reconstitution See Instructions, Follow instructions from RJ, # 4,000 mL, 0 Refills, Maintenance, 04/04/24 2:02:00 PM EDT, [facility] [id number], Partial fill upon patient request if the prescription is for a schedule II opioid drug., Follow instructions from RJ, 160, cm, 04/04/24 13:39:00EDT, Height, 81.81, kg, 04/02/24 15:08:00 EDT, Dry Weight Start Date: 04/04/24 Status: Ordered Quantity: 4000.0 Unit: mL Repeat number: 1 Indications: Encounter for other preprocedural examination; hydrOXYzine pamoate 50 mg oral capsule 1 [...] Maintenance, 04/02/24 7:08:00 PM EDT, ER Tablet, [facility] [id number], 160, cm, 04/02/24 15:08:00 EDT, Height, 81.81, kg, 04/02/24 15:08:00 EDT, Dry Weight Start Date: 04/02/24 Status: Ordered Quantity: 90.0 Unit: tablet Repeat number: 4 MiraLax oral powder for reconstitution = 17 Gm, By Mouth, Daily, dissolve in water or juice. My increase to 2-3 times a day as needed for constipation, # 255 Gm, 2 Refills, Maintenance, 04/04/24 1:58:00 PM EDT, [facility] [id number], Partial fill upon patient request if the prescription is for a schedule II opioid drug., 17 Gm By Mouth Daily,x30 days,Instr:dissolve in water or juice. My increase to 2-3 times a day as needed for constipation, 160, cm, 04/04/24 13:39:00 EDT, Height, 81.81, kg, 04/02/24 15:08:00EDT, Dry Weight Start Date: 04/04/24 Stop Date: 07/03/24 Status: Ordered Quantity: 255.0 Unit: g Repeat number: 3 Indications: Slow transit constipation; multivitamin Multiple Vitamins oral tablet 1 tablet, By Mouth, Daily, # 90 tablet, 0 Refills, Maintenance, 08/05/22 3:49:00 PM EST, Tablet, [facility] [id number], Partial fill upon patient request if the prescription is for a schedule II opioid drug., 1 tablet By Mouth Daily, 160, cm, 08/05/22 15:39:00 EST, Height, 67.5, kg, 02/06/22 3:46:00 EDT, Dry Weight Start Date: 08/05/22 Status: Ordered Quantity: 90.0 Unit: tablet Repeat number: 1 Indications: Weakness; naltrexone 50 mg oral tablet 1 tablet = 50 mg, By Mouth, Daily in AM, 0 Refills, Maintenance, 09/07/22 12:21:00 PM EST, Tablet, ; Start Date: 09/07/22 Status: Ordered Repeat number: 1 naproxen 500 mg oral tablet 1 tablet, By Mouth, 2 times a day, PRN NEEDED FOR PAIN, TAKE WITH FOOD, # 40 tablet, 0 Refills, Maintenance, 07/10/24 11:59:00 AM EST, [facility], 160, cm, 05/23/24 9:46:00 EDT, Height, 76.31, kg, 04/09/24 8:27:00 EDT, Dry Weight Start Date: 07/10/24 Status: Ordered Quantity: 40.0 Unit: tablet Repeat number: 1 nicotine 2 mg oral transmucosal lozenge 1 lozenge = 2 mg, By Mouth, Every 2 hours, PRN as needed for smoking cessation, # 72 lozenge, 2 Refills, Maintenance, 11/07/24 8:36:00 AM EDT, [facility] [id number], Partial fill upon patient request if the prescription is for a schedule II opioid drug., 1 lozenge By Mouth Every 2 hours,PRN:as needed for smoking cessation, 160, cm, 10/03/24 10:05:00 EDT, Height, 76.45, kg,10/03/24 10:05:00 EDT, Dry Weight Start Date: 11/07/24 Status: Ordered Quantity: 72.0 Unit: lozenge Repeat number: 3 Pedialyte oral solution Drink ad juan pablo, By Mouth, Daily, PRN as needed for dehydration, # 1,000 mL, 2 Refills, Maintenance, 04/09/24 10:03:00 AM EDT, [facility] [id number], Partial fill upon patient request if the prescription is for a schedule II opioid drug., Drink ad juan pablo By Mouth Daily,PRN:as needed for dehydration, 160, cm, 04/09/24 8:27:00 EDT, Height, 76.31, kg, 04/09/24 8:27:00 EDT, Dry Weight Start Date: 04/09/24 Status: Ordered Quantity: 1000.0 Unit: mL Repeat number: 3 Indications: Noninfective gastroenteritis and colitis, unspecified; Pull-Ups size large Pull-Ups size large, See Instructions, # 180 each, Refills 11, Tot. Refills 11, Maintenance, needs 6 pullups or 2 boxes per day N39.41, R19.8 . dx N31.9 neurogenic bladder, 09/20/24 1:03:00 PM EST, Supply Start Date: 09/20/24 Status: Ordered Quantity: 180.0 Unit: each Repeat number: 12 QUEtiapine 100 mg oral tablet Take 1 tablet by mouth every morning (per psych) Start Date: 10/03/24 Status: Ordered Repeat number: 1 QUEtiapine 200 mg oral tablet TAKE 3 TABLETS BY MOUTH EVERY NIGHT AT BEDTIME FOR insomnia AND paranoia (per psych) Start Date: 10/03/24 Status: Ordered Repeat number: 1 QUEtiapine 50 mg oral tablet Take 1 tablet by mouth three times a day as needed paranoia, anger, anxiety (per psych) Start Date: 10/03/24 Status: Ordered Repeat number: 1 Senna-Time 8.6 mg oral tablet 1 TO 2 TABLETS, By Mouth, Daily at bedtime, PRN NEEDED FOR CONSTIPATION, TAKE ONLY FOR CONSTIPATION NOT relieved BY diet changes, # 50 tablet, 0 Refills, Maintenance, 01/09/25 3:16:00 PM EDT, [facility] [id number], 160, cm, 11/13/24 10:10:00 EDT, Height, 76.45, kg, 10/03/24 10:05:00 EDT, Dry Weight Start Date: 01/09/25 Stop Date: 01/09/26 Status: Ordered Quantity: 50.0 Unit: tablet Repeat number: 1 varenicline 1mg tablet 1 tablet, By Mouth, 2 times a day, # 56 tablet, 2 Refills, Maintenance, 01/09/25 3:17:00 PM EDT, [facility], 160, cm, 11/13/24 10:10:00 EDT, Height, 76.45, kg, 10/03/24 10:05:00 EDT, Dry Weight Start Date: 01/09/25 Status: Ordered Quantity: 56.0 Unit: tablet Repeat number: 1 Ventolin HFA 108 mcg/inh inhalation aerosol with adapter 1 puffs, Inhalation, 4 times a day, PRN for wheezing, covering for PCP, # 18 Gm, 4 Refills, Maintenance, 03/04/24 4:53:00 PM EDT, Aerosol, [facility] [id number], Partial fill upon patient request if the [...] 3 Refills, Maintenance, 04/24/24 11:15:00 AM EDT, [place], [place] - [id number], Partial fill upon patient request if the prescription is for a schedule II opioid drug., 160, cm, 04/09/24 8:27:00 EDT, Height, 76.31, kg, 04/09/24 8:27:00 EDT, Dry Weight Start Date: 04/24/24 Status: Ordered Quantity: 90.0 Unit: capsule Repeat number: 4 zolpidem 10 mg oral tablet 1 tablet = 10 mg, By Mouth, Daily at bedtime, (per psych), # 30 tablet, 0 Refills, Maintenance, 10/03/24 8:42:00 AM EDT, Partial fill upon patient request if the prescription is for a schedule II opioid drug. Start Date: 10/03/24 Status: Ordered Quantity: 30.0 Unit: tablet Repeat number: 1 Problem List Condition Confirmation Course Effective Dates Status H ealth Status Informant Abnormal findings on diagnostic imaging of breast Confirmed Active Alcohol use disorder, moderate, in early remission Confirmed Active Chronic diarrhea Confirmed Active Cocaine use disorder, severe, in early remission Confirmed Active Family history of colon cancer Confirmed Active H/O recent trauma Confirmed Active Hepatitis C antibody test positive Confirmed Active Hypercalcemia Confirmed Active HTN (hypertension) Confirmed Active Fecal incontinence Confirmed Active Anxiety and depression Confirmed Active Urinary incontinence, mixed Confirmed Active Multiple pelvic fractures Confirmed Active Obese class I Confirmed Active Other Specified Benign Mammary Dysplasias Confirmed Active Right shoulder pain Confirmed Active Leg weakness, bilateral Confirmed Active Post traumatic stress disorder (PTSD) Confirmed Active Pre-diabetes Confirmed Active Emphysema lung Confirmed Active Encounter for screening colonoscopy Confirmed Active Constipation due to slow transit Confirmed Active Tobacco user Confirmed Active Social History Social History Type Response Smoking Status 10 or more cigarette s (1/2 pack or more)/day in last 30 days entered on: 01/04/24 Sex Sex Representation Female (finding) Patient Care team information Care Team Personnel Name: Wan Simmons RN Position: [facility] ED RN W/OE and Tasks Member Role: Primary Care Nurse Name: Sanjana Cordova RN Position: [facility] RN Member Role: Primary Care Nurse Name: Kassy Curiel MD Position: [facility] Physician - Primary Care Member Role: PCP Address: [address] [place] [id number]- [place] [employer]: Name: Rita RN, Vinnie Position: [facility] ED RN W/OE and Tasks Member Role: Primary Care Nurse Name: Edyta Sanchez RN Position: [facility] Hospital Chefs Member Role: Primary Care Nurse Name: Reymundo Kwok MD Position: Reference Physician Member Role: [employer] Physician Address: [address] [facility] [address] [facility] [place] [address]- [place] [employer]: Name: Kitty Hickman RN Position: [facility] RN Member Role: Primary Care Nurse Care Team Related Persons Name: TARA JASON Name: CARY MICHAELS Name: MARIELLA FRANKLIN Name: KODY WADE Insurance Providers Guarantor name: JOANNAZAHRAA KAURA Health Plan Information #: 1 Payer: MEDICARE B Payer Identifier: Member Number: [id number] Group Number: Subscriber Identifier: [id number] Relationship to Subscriber: self Coverage Type: MEDICARE Coverage Verification Date: NA Telecom: NA Address: Health Plan Information #: 2 Payer: [employer] Payer Identifier: Member Number: [id number] Group Number: Subscriber Identifier: [id number] Relationship to Subscriber: self Coverage Type: MEDICAID Coverage Verification Date: NA Telecom: NA Address:
--- NOTE | 2025-01-30 15:48 | MHC.CARE ---
Patient was seen by [facility] in the community and dispo is [facility], patient does not want to wait for the bed at home and is being sent to the ED to wait. wait for placement. [facility] said there may be [facility] beds available today and will send referral once assessment in complete. [facility] reported they will communicate with CARE Team once placement secured.
--- NOTE | 2025-01-30 15:51 | ED_ITS ---
HPI - Psych General Chief Complaint: Psychiatric Symptoms Stated Complaint: anxiety,depression Time Seen by Provider: 01/30/25 15:50 Source: patient and RN notes reviewed Mode of arrival: ambulatory Limitations: no limitations History of Present Illness ED Provider: Leticia Valente PA-C HPI Narrative: This is a 59-year-old female, with a past medical history of anxiety and depression, who presents emergency department with concerns of increased anxiety and depression. 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 She has no suicidal or homicidal ideation. No auditory or visual hallucinations. She does report safety concerns as she states that she becomes very nervous around men. She otherwise is feeling well, no current pain or concerns. No chest pain or shortness of breath. No other complaints or concerns at this time. MD complaint: feels depressed and anxiety Onset (ago): week(s) Duration: constant and getting worse Relieving factors: none Exacerbating factors: none Context: significant life stressor Associated psychiatric symptoms: depression Treatments prior to arrival: none Related Data Home Medications ?Medication ?Instructions ?Recorded ?Confirmed chlorthalidone 25 mg tablet 25 mg PO QAM 01/30/2501/21 cholecalciferol (vitamin D3) 50 50 mcg PO DAILY 01/30/25 mcg (2,000 unit) capsule (Vitamin D3) divalproex 250 mg tablet,extended 250 mg PO BEDTIME 01/30/25 release 24 hr divalproex 500 mg tablet,extended 1,000 mg PO BEDTIME 01/30/25 01/30/25 release 24 hr gabapentin 300 mg capsule 300 mg PO TID anxiety 01/30/25 nicotine (polacrilex) 2 mg buccal 2 mg PO Q2H PRN Eyal shyam Cravings 01/30/25 01/30/25 lozenge quetiapine 100 mg tablet 100 mg PO QAM 01/30/2501/30 quetiapine 200 mg tablet 600 mg PO BEDTIME insomnia 0 01/30/25 01/30/25 quetiapine 50 mg tablet 50 mg PO TID PRN anxiety 05/1701/30/25 sennosides 8.6 mg tablet (senna) 8.6 - 17.2 mg PO BEDT ZACHERY PRN 01/30/25 01/30/25 constipation umeclidinium 62.5 mcg-vilanterol 1 ea inhalation DAILY 01/30/25 01/30/25 25 mcg/actuation powdr for inhalation (Anoro Ellipta) varenicline tartrate 1 mg tablet 1 mg PO BID 01/30/25 01/30/25 zolpidem 10 mg tablet 5 - 10 mg PO BEDTIME PRN Ins omnia 01/30/25 01/30/25 Previous Rx's ?Medication ?Instructions ?Recorded nebulizer and compressor #1 ea 07/24/24 Allergies Allergy/AdvReac Type Severity Reaction Status Date / Time No Known Allergies Allergy Verified 01/30/25 16:00 Review of Systems 2 Review of Systems: Yes all other systems are reviewed and are negative Constitutional: Constitutional: Reports as per [facility] Past Medical History Attestation statement: The following information was validated with the patient. Social History Social History Alcohol intake: never Substance Use Type: Crack/Cocaine Advance Directives: No Advance Directives Information Provided: No Physical Exam 2 Vital Signs: Vital Signs: Last Vital Signs Temp 97.9 F 01/30/25 22:56 Pulse 86 01/30/25 22:56 Resp 18 01/30/25 22:56 BP 143/77 H 01/30/25 22:56 Pulse Ox 98 01/30/25 22:56 O2 Del Method Room Air 01/30/25 22:56 BMI result Body Mass Index 30.1 Const: General: cooperative, comfortable and no acute distress O rientation/consciousness: patient oriented x3 Limitations: no limitations HEENT: Head: Yes normal to inspection, Yes normocephalic and Yes atraumatic Ears: hearing grossly normal bilaterally General nose exam: Normal external nose present Face and sinus: Yes normal facial exam Mouth: Normal oral and palatal mucosa present, oropharynx normal and moist mucous membranes Throat: Yes posterior oropharynx normal Eyes: General: appearance normal, both eyes and all related structures E yelids: Yes eyelids normal Conjunctivae: conjunctivae normal Sclerae: s clerae normal Pupils: Equal, round and reactive pupils present EOM: EOMs intact bilaterally Neck: Neck: Yes normal visual inspection, Yes full ROM and Yes no lymphadenopathy Lymphatic: no lymphadenopathy noted Chest: Chest palpation & inspection: normal inspection of the chest Resp: Effort & Inspection: normal respiratory effort and able to speak in complete sentences Auscultation: clear to auscultation bilaterally, no crackles, no rales, no rhonchi and no wheezes Cardio: Rate: regular rate Rhythm: regular rhythm Heart sounds: S1 normal heart sound present and S2 normal heart sound present GI: Inspection: Yes normal to inspection Skin: General skin exam: no rashes or lesions noted Trauma: no lacerations or abrasions Wounds: no wounds Neuro: General: patient oriented x3 and moves all extremities Cranial nerves: Yes Equal, round and reactive pupils present Extrem: General: Yes normal to inspection Right upper extremity: normal to inspection Left upper extremity: normal to inspection Right lower extremity: normal to inspection Left lower extremity: normal to inspection Psych: Appearance: grossly normal Mental Status: mental status grossly normal Speech and movement: Clear speech present Affect: Sad affect present Attitude: cooperative Thought process: Normal thought process present Thought content: Normal thought content present Insight: Fair insight present (Psych) Judgement: Fair judgement present (Psych) Course Course Course Narrative: Time: 08:16 Date: 01/31/25 Provider: Tawanna Diaz DO Physician observation ended at 816am. Patient has been cleared for discharge by the CARE team. Will follow up as an outpatient. Medications Administered Generic Name Dose Route Start Last Admin Trade Name Freq PRN Reason Stop Dose Admin Divalproex Sodium 1,000 mg 01/30/25 22:00 01/30/25 22:59 Divalproex Sodium Er 500 Mg Tab.Er.24h PO 1,000 mg BEDTIME JAYDE Administration Divalproex Sodium 250 mg 01/30/25 22:00 01/30/25 22:59 Divalproex Sodium Er 250 Mg Tab.Er.24h PO 250 mg BEDTIME JAYDE Administration Gabapentin 300 mg 01/30/25 22:00 01/30/25 22:59 Gabapentin 300 Mg Capsule PO 300 mg TID JAYDE Administration Quetiapine Fumarate 50 mg 01/30/25 21:52 01/30/25 22:59 Quetiapine Fumarate 50 Mg Tablet PO 50 mg TID PRN Administration Anxiety Quetiapine Fumarate 600 mg 01/30/25 22:00 01/30/25 23:00 Quetiapine Fumarate 300 Mg Tablet PO 600 mg BEDTIME JAYDE Administration Zolpidem Tartrate 5 - 10 mg 01/30/25 21:52 01/30/25 22:56 Zolpidem Tartrate 5 Mg Tablet PO 10 mg BEDTIME PRN Administration Insomnia Medical Decision Making Medical Decision Making [facility] Narrative: This is a 59-year-old female who presents emergency department with concerns of increasing anxiety and depression. Patient states that she had a recent breakup with her partner and this has caused her to have worsening symptoms. On arrival, blood pressure slightly elevated 156/84, all other vital signs within normal limits. She has no suicidal or homicidal ideation. No current pain. Will obtain labs, UA, to rule out any electrolyte derangement. Patient will also be seen by the care team for further management. Plan: Labs, UA, crisis eval Course: Labs reviewed, she has no leukocytosis, stable H&H, chemistry within normal limits. No evidence of infection. Positive THC, otherwise unremarkable U tox. Patient placed in physician observation pending care team/crisis evaluation. Differential Diagnosis Differential Diagnoses: The differential diagnosis associated with the presentation includes Anxiety, depression, suicidal ideation, homicidal ideation Lab Data [facility] Lab Attestation statement: I reviewed the patient's lab results. See MDM and course 01/30/25 16:21 01/30/25 16:21 Labs: Lab Results 01/30/25 01/30/25 Range/Units 16:21 16:35 WBC 7.9 (4.8-10.8) X10*3/uL RBC 4.32 (4.20-5.50) X10*6/uL Hgb 13.1 (12.0-16.0) g/dl Hct 38.7 (37.0-47.0) % MCV 89.6 (80.0-98.0) fL MCH 30.3 (27.0-33.0) pg MCHC 33.9 (31.0-35.0) g/dl RDW 15.9 (11.0-16.0) % Plt Count 228 (160-400) X10*3/uL MPV 9.5 (9.4-12.3) fL Immature Gran % (Auto) 1.0 H (0.0-0.4) % Neut % (Auto) 48.7 (45-73) % Lymph % (Auto) 36.7 (20-40) % Weston % (Auto) 12.3 H (2-11) % Eos % (Auto) 0.8 (0-4) % Baso % (Auto) 0.5 (0-2) % Lymph # (Auto) 2.9 (1.2-4.9) X10*3/uL Weston # (Auto) 1.0 (0.1-1.2) X10*3/uL Eos # (Auto) 0.1 (0.0-0.4) X10*3/uL Baso # (Auto) 0.0 (0.0-0.2) X10*3/uL Abs Immat Gran (auto) 0.08 H (0.00-0.03) X10*3/uL Absolute Neuts (auto) 3.9 (2.0-8.3) x10*3/uL Absolute Nucleated RBC 0.000 (0.0-0.012) X10*3/uL Nucleated RBC % (auto) 0.0 (0.0-0.2) /100WBC Sodium 138 (135-145) mmol/L Potassium 3.8 D (3.3-5.1) mmol/L Chloride 106 (96-108) mmol/L Carbon Dioxide 26 (22-29) mmol/L Anion Gap 10 L (12-20) BUN 17 H (9-16) mg/dL Creatinine 0.85 (0.5-1.4) mg/dL Estim Creat Clear Calc 70.9 Estimated GFR > 60 Random Glucose 92 (60-115) mg/dL Calcium 9.4 (8.4-10.2) mg/dL Total Bilirubin 0.2 (0.0-1.0) mg/dL AST 25 (5-31) U/L ALT 15 (0-31) U/L Alkaline Phosphatase 87 (39-117) U/L Total Protein 7.1 (6.5-8.0) g/dL Albumin 4.2 (3.5-5.0) g/dL Urine Color DK YELLOW Urine Appearance Clear Urine pH 6.0 (5.0-9.0) Ur Specific [place] >= 1.030 H (1.005-1.025) Urine Protein Trace (Neg-Trace) mg/dL Urine Glucose (UA) Negative (Negative) mg/dL Urine Ketones Trace (Negative) mg/dL Urine Blood Negative (Negative) Urine Nitrite Negative (Negative) Ur Leukocyte Esterase Negative (Negative) Urine Test NEGATIVE (NEGATIVE) Salicylates < 5.0 L (15-30) mg/dL Urine Opiates Screen Not Detected (Not Detect) Ur Buprenorphine Scrn Not Detected (Not Detect) ng/mL Ur Oxycodone Screen Not Detected (Not Detect) ng/mL Urine Methadone Screen Not Detected (Not Detect) ng/mL Urine Fentanyl Screen Not Detected (Not Detect) Acetaminophen < 3 (<30) mcg/mL Ur Barbiturates Screen Not Detected (Not Detect) Ur Phencyclidine Scrn Not Detected (Not Detect) Ur Amphetamines Screen Not Detected (Not Detect) U Benzodiazepines Scrn Not Detected (Not Detect) Urine Cocaine Screen Not Detected (Not Detect) U Marijuana (THC) Screen POSITIVE H (Not Detect) Ethyl Alcohol < 10 mg/dL COVID-19 (EH) Negative (Negative) COVID-19 Clin Com See Note Discharge Plan Discharge Clinical Impression: Acute anxiety Patient Disposition: Home, Self-Care Instructions: Anxiety (ED) Additional Instructions: You were seen in our Emergency Department today for treatment of a behavioral health issue. It is important after your visit that you follow up with either your behavioral health provider or a primary care doctor within 7 days.? If you have trouble finding a therapist you can reach out to [place] [phone] The National Suicide and Crisis Lifeline can be reached 7 days a week 24 hours a day.? Call 988 to speak with someone.? Return for any worsening symptoms or concerns such as thoughts of self harm or harm to others. Please call 911 if you feel your mental health is worsening.? Prescriptions: No Action (DME) nebulizer and compressor Device See Rx Instructions .Route Qty: 1 0RF Rx Instructions: As directed sennosides [senna] 8.6 mg tablet 8.6 - 17.2 mg PO BEDTIME PRN (Reason: constipation) quetiapine 200 mg tablet 600 mg PO BEDTIME chlorthalidone 25 mg tablet 25 mg PO QAM quetiapine 100 mg tablet 100 mg PO QAM divalproex 500 mg tablet extended release 24 hr 1,000 mg PO BEDTIME gabapentin 300 mg capsule 300 mg PO TID zolpidem 10 mg tablet 5 - 10 mg PO BEDTIME MDD 10mg PRN (Reason: Insomnia) divalproex 250 mg tablet extended release 24 hr 250 mg PO BEDTIME nicotine (polacrilex) 2 mg lozenge 2 mg PO Q2H PRN (Reason: Nicotine Cravings) quetiapine 50 mg tablet 50 mg PO TID PRN (Reason: anxiety) varenicline tartrate 1 mg tablet 1 mg PO BID cholecalciferol (vitamin D3) [Vitamin D3] 50 mcg (2,000 unit) capsule 50 mcg PO DAILY umeclidinium-vilanterol [Anoro Ellipta] 62.5-25 mcg/actuation blister with device 1 ea inhalation DAILY Interventions: [place]-Suicide Risk Severity Scale Last Done: 01/30/25 16:24 Print Language: Chinese
[2025-01-30 15:55] VITALS: BP 156/84; BP 156/99; PULSE 101; PULSE 84; RESP 18; TEMP 36.2; O2SAT 97; O2SAT 98; BMI 30.1
--- NOTE | 2025-01-30 16:24 | MHC.EDTECH ---
Patient arrived to Pod with hair pulled in bun. This tech shook out patients hair and provided hair tie back to patient. RN aware of patient having hair tie.
[2025-01-30 16:29] LABS: MANUAL DIFF FLAG NO
[2025-01-30 16:30] LABS: Hematocrit 38.7 % (37.0-47.0); Hemoglobin 13.1 g/dl (12.0-16.0); Imm Gran Abs Auto 0.08 X10*3/uL (0.00-0.03); Imm Gran Pct Auto 1.0 % (0.0-0.4); Lymphocytes Absolute Auto 2.9 X10*3/uL (1.2-4.9); Mean Corpuscular HGB Conc 33.9 g/dl (31.0-35.0); Mean Corpuscular Hemoglobin 30.3 pg (27.0-33.0); Mean Corpuscular Volume 89.6 fL (80.0-98.0); NRBC Abs Auto 0.000 X10*3/uL (0.0-0.012); NRBC Pct Auto 0.0 /100WBC (0.0-0.2); Platelet Count 228 X10*3/uL (160-400); Red Blood Count 4.32 X10*6/uL (4.20-5.50); White Blood Count 7.9 X10*3/uL (4.8-10.8)
--- OUTSIDE RECORDS SUMMARY | 2025-01-30 16:39 | XMS_ITS | Clinical Summary ---
Author Organization [facility] ity Address [address] [place] [address] Care Team Providers Care Solar Sales Rep Name Role Phone Marcio Bolaños MD Primary Care Provider Social History Tobacco Use Types Packs/Day Years Used Date Smoking Tobacco: Never Assessed Comments Unknown Sex and Gender Information Value Date Recorded Sex Assigned at Not on file Legal Sex Female 4:37 AM EST Gender Identity Not on file Sexual Orientation Not on file Plan of Treatment Health Maintenance Due Date Last Done Comments Breast Cancer Screening 1966 DTaP,Tdap,and Td Vaccines (1 - Tdap) 1985 Hepatitis B Vaccines (1 of 3 - 19+ 3-dose series) 1985 Cervical Cancer Screening: P ap Smear 1987 Pneumococcal Vaccine: 50+ Ye ars (1 of 1 - PCV) 2016 Zoster Vaccines (1 of 2) 2016 Colorectal Cancer Screening: Colonoscopy 06/26/2022 Depression Screening 06/26/2022 HIV Screening 06/26/2022 Hepatitis C Screening 06/26/2022 Social Influencers of Health Screening 06/26/2022 COVID-19 Vaccine (2023-2 5 season) 2024 Influenza Vaccine (#1) 2025 HIB Vaccines Aged Out No longer eligi ble based on patient's age to complete this topic HPV Vaccines Aged Out No longer eligi ble based on patient's age to complete this topic Hepatitis A Vaccines Aged Out No long er eligible based on patient's age to complete this topic IPV Vaccines Aged Out No longer eligi ble based on patient's age to complete this topic MMR Vaccines Aged Out No longer eligi ble based on patient's age to complete this topic Meningococcal ACWY Vaccine Aged Out N o longer eligible based on patient's age to complete this topic Meningococcal B Vaccine Aged Out No l onger eligible based on patient's age to complete this topic Pneumococcal Vaccine: Pediat rics (0 to 5 Years) and At-Risk Patients (6 to 49 Years) Aged Out No longer eligible b ased on patient's age to complete this topic RSV Immunization Patients Un kesha 20 months Aged Out No longer eligible b ased on patient's age to complete this topic Varicella Vaccines Aged Out No longer eligible based on patient's age to complete this topic Care Teams Solar Sales Rep Relationship Specialty Start Date End Date Marcio Bolaños MD [address] [place] [address] PCP - General Pulmonology 06/16/14
--- OUTSIDE RECORDS SUMMARY | 2025-01-30 16:40 | XMS_ITS | Patient Health Record ---
Author Organization [facility] Address [address] [place], [place] [id number] Care Team Providers Care Chemical Process Operator Name Role Phone [facility] Primary Car e Provider Unavailable Sarabjit Rodriguez Unavailable [phone] Reason For Referral No Information Plan Of Treatment No Information Insurance Providers Payer Name Payer Address Payer Phone Subscriber Number Group Number Insured Name Patient Relationship to Insured Coverage Start Date Coverage End Date [place] Medicare Part A [employer] [address] [place] [address] [id number] Makayla Loya Self - patient is the insured 1
[2025-01-30 16:42] LABS: Appearance Urine Clear; Glucose Urine UA Negative (Negative); PH 6.0 (5.0-9.0); Specific Gravity - Urine >= 1.030 (1.005-1.025)
[2025-01-30 16:44] LABS: UPreg QC Valid YES
[2025-01-30 16:46] LABS: Acetaminophen LAB < 3 mcg/mL (<30); Alanine Aminotransferase 15 U/L (0-31); Albumin Level 4.2 g/dL (3.5-5.0); Alkaline Phosphatase 87 U/L (39-117); Anion Gap 10 (12-20); Aspartate Amino Transferase 25 U/L (5-31); Blood Urea Nitrogen 17 mg/dL (9-16); Calcium 9.4 mg/dL (8.4-10.2); Carbon Dioxide 26 mmol/L (22-29); Chloride 106 mmol/L (96-108); Creatinine Clr Calc Pharmacy 70.9; Estimated Glomerular Filt Rate > 60; Potassium 3.8 mmol/L (3.3-5.1); Salicylate < 5.0 mg/dL (15-30); Sodium 138 mmol/L (135-145); Total Protein 7.1 g/dL (6.5-8.0)
[2025-01-30 16:52] LABS: Cannabinoid Screen Urine POSITIVE (Not Detect)
[2025-01-30 17:45] LABS: COVID-19 Test Negative (Negative); IDNOW Serial# 55D5AD1C
--- NOTE | 2025-01-30 19:34 | PC.NURSE ---
patient appears to remain at rest presently respirations are even and unlabored socializing with staff in common areas. will immediately review med list with client patient appears in no distress.
--- NOTE | 2025-01-30 21:42 | PC.NURSE ---
t/w had asked for medications to be continued about 90 minutes ago, client is now requesting to dc home. nitifed care team members.
--- NOTE | 2025-01-30 22:45 | PC.NURSE ---
patient vascillating on dc or not.
[2025-01-30 22:56] VITALS: BP 143/77; PULSE 86; RESP 18; TEMP 36.6; O2SAT 98
[2025-01-30] MEDS: Divalproex Sodium ER 250 MG TAB.ER.24H PO (22:59)
--- NOTE | 2025-01-30 23:55 | PC.NURSE ---
Took over care from RN Becky at 23:00, pt was medicated prior to my shift, pt in bed sleeping. no sign of distress
--- NOTE | 2025-01-31 06:24 | MHC.EDTECH ---
pt woke up asking if they were going to be discharged and did not understand that care team needs to come in and do an NIKHIL follow up. pt frustrated with answer but returned to their room without issue.
--- NOTE | 2025-01-31 07:09 | PC.NURSE ---
Assumed care of patient at 0645, patient appears to be in no apparent distress, appears to be sleeping, respriations even and unlabored. Continue plan of care for CARE team eval
--- NOTE | 2025-01-31 08:20 | MHC.CARE ---
Patient, when awakened, informs t/w she does not want to go to [facility]. She is feeling better, wants to go home to be with her cat. She denies SI/ HI, and is agreeable to a 3 day follow up from [facility]. T/w called [facility], informed them that she no longer wants an [facility] bed, and could benefit from a 3 day follow up, given her recent need for crisis eval by [facility]/ which resulted in [facility] dispo. Patient presents as logical, goal oriented to return home via bus.
[2025-01-31 08:32] VITALS: BP 148/71; PULSE 79; RESP 16; TEMP 36.6; O2SAT 96
== END 2025-01-31 08:33 | disposition home or self-care (01) ==
PROVIDERS: Physician Assistant Medical; Emergency Provider Emergency Medicine
DX: F41.8 Other specified anxiety disorders (principal); Z79.899 Other long term (current) drug therapy; Z11.52 Encounter for screening for COVID-19
CPT/HCPCS: 80053; 80143; 80179; 80307; 81003; 81025; 85025; 87635; 99285

== ENCOUNTER → 2025-07-09 08:59 | Outpatient (REF) | payer MEDICARE, MEDICAID, SELFPAY ==
--- NOTE | 2025-07-09 09:06 | ECG_ITS ---
Test Reason : CHECK QT Blood Pressure : */* mmHG Vent. Rate : 95 BPM Atrial Rate : 95 BPM P-R Int : 166 ms QRS Dur : 86 ms QT Int : 374 ms P-R-T Axes : 64 28 40 degrees QTcB Int : 469 ms Normal sinus rhythm Nonspecific T wave abnormality Prolonged QT Abnormal ECG When compared with ECG of 24-Jul-2024 01:11, No significant change was found Referred By: Annette Gomez Electronically Signed By: Tru Skelton
--- OUTSIDE RECORDS SUMMARY | 2025-07-09 09:46 | XMS_ITS | Clinical Summary ---
Author Organization [facility] Address [address] [place] [address] Phone Care Team Providers Care Vulcan Crewmember Name Role Phone Marcio Bolaños MD Primary [...] Last Done Comments Breast Cancer Screening 1966 Colorectal Cancer Screening: Colonoscopy 1966 DTaP,Tdap,and Td Vaccines (1 - Tdap) 1985 Hepatitis B Vaccines (1 of 3 - 19+ 3-dose series) 1985 Cervical Cancer Screening: P ap Smear 1987 Pneumococcal Vaccine: 50+ Ye ars (1 of 1 - PCV) 2016 Zoster Vaccines (1 of 2) 2016 Depression Screening 07/24/2024 COVID-19 Vaccine ( - 2024-2 6 season) 2025 Influenza Vaccine (#1) 2025 HIV Screening 07/07/2025 Hepatitis C Screening 07/07/2025 Medicare Annual Wellness Visit 07/07/2025 Social Influencers of Health Screening 07/07/2025 RSV Immunization Adult Patie nts (1 - 1-dose 75+ series) 2041 HIB Vaccines Aged Out No longer eligi [...] on patient's age to complete this topic Insurance MEDICARE MEDICAID - [place] Care Teams Vulcan Crewmember Relationship Specialty Start Date End Date Marcio Bolaños MD [address] [place], [place] PCP - General Pulmonology 06/16/14
== END ==
LOC: HO.CARD 08:59
PROVIDERS: PCP Family Medicine; Visit Provider Nurse Practitioner Psychiatric/Mental Health
DX: Z79.899 Other long term (current) drug therapy (principal)
CPT/HCPCS: 93005

== ENCOUNTER → 2025-07-09 09:06 | Outpatient (BNV) | payer MEDICARE, MEDICAID, SELFPAY | PROVIDERS: PCP Family Medicine; Visit Provider Internal Medicine Cardiovascular Disease | DX: R94.31 Abnormal electrocardiogram [ECG] [EKG] (principal); Z95.0 Presence of cardiac pacemaker | CPT/HCPCS: 93010 ==